=== PATIENT | female | born 1970 | race Caucasian/White ===

== ENCOUNTER 2018-06-05 13:14 | Emergency (ER) | payer MEDICAID, SELFPAY ==
[2018-06-05 13:15] VITALS: BP 144/92; PULSE 112; RESP 16; TEMP 37.1; O2SAT 97; BMI 31.1
--- NOTE | 2018-06-05 14:46 | ED.VISSUMM ---
- ER Visit Summary Date of Service: 06/05/18 Chief Complaint: [Mouth pain and redness left leg] History of Present Illness: The patient is a 48 F [presents to the emergency department complaint of blisters in her mouth and pain with swallowing. Patient states that her grandchild's been diagnosed with sswo-ehtf-hdk-mouth disease. Patient states that today she had a temperature of 102.1. Patient states that about 5 days ago she was seen at [facility] and treated for cellulitis with Keflex and Bactrim however she states that she is allergic to Bactrim so she stopped taking it. Patient states she needs a note stating that she may return to work and that she is not infectious given her cellulitis.] Physical Examination: [HEENT-PERRLA, EOMI. Cranial nerves II through XII grossly intact. TMs clear. Mucous membranes moist. No adenopathy. Patient is edentulous of upper teeth and she does have small vesicular type lesions noted on the gingiva. No lesions noted on the soft palate or oropharynx. No tongue lesions noted. Cardiovascular-regular rate and rhythm without murmur or ectopy Lungs-clear to auscultation, chest wall stable without crepitus or subcu emphysema Abdomen-normoactive bowel sounds, soft, nontender, no rebound or rigidity, no peritoneal signs. Extremities-intact ?4, normal range of motion, normal pulses, atraumatic]. Patient has several small patches of faint erythema to the left lower extremity with some excoriations noted. No lymphangitic streaking noted. No significant edema noted. Test Results: [None indicated] Emergency Department Course and Treatment: [Patient will be started on doxycycline and she is to continue with the Keflex. Patient will be given a prescription for [place] for pain] Treatment Plan: [Doxycycline and [place] for pain. Patient to follow-up with her primary care physician 3-5 days.] Disposition: [Discharged home in stable condition] Impression: [Mouth pain-suspect viral stomatitis Cellulitis left leg] This note was generated with [employer] dictation software. It may contain incorrect words, spelling, and punctuation that were not noted in review of the chart prior to signing ED Disposition - Plan for ED Patient: Chief Complaint: Lower Extremity Injury Referrals: Care Physician,No Primary [Primary Care Provider] -
--- NOTE | 2018-06-05 14:49 | ED.DEP ---
ED Disposition - Plan for ED Patient: Chief Complaint: Lower Extremity Injury Instructions: ED Stomatitis Ch, ED Infec Skin Cellulitis Prescriptions: Hydrocodone/Acetaminophen [[place] 5-325 Tablet] 1 - 2 ea PO 4X/DAY PRN PRN 3 Days #12 tab PRN Reason: Pain Doxycycline Monohydrate 100 mg PO BID #20 cap Referrals: Care Physician,No Primary [Primary Care Provider] - Warren Samson MD [NON-STAFF] - 3-5 Days
[2018-06-05 15:09] VITALS: PULSE 87; RESP 18; O2SAT 97
--- NOTE | 2018-06-05 15:10 | ED.RN ---
PT GIVEN WRITTEN AND VERBAL DISCHARGE INSTRUCTIONS AND HOME GOING PRESCRIPTIONS. EDUCATED ON USE OF ANTIBIOTICS AND PAIN MEDS AND SIDE EFFECTS. PT VERBALIZES UNDERSTANDING AND DENIES FURTHER QUESTIONS. PT AMBULATES OUT OF DEPT BY SELF.
== END 2018-06-05 15:11 | disposition home or self-care (01) ==
LOC: ED 14:55
PROVIDERS: Emergency Provider Emergency Medicine; Family Provider Family Medicine; PCP Family Medicine
DX: K13.79 Other lesions of oral mucosa (principal); L03.116 Cellulitis of left lower limb; M54.9 Dorsalgia, unspecified; G89.29 Other chronic pain; F41.9 Anxiety disorder, unspecified; Z90.49 Acquired absence of other specified parts of digestive tract; Z90.710 Acquired absence of both cervix and uterus; Z79.899 Other long term (current) drug therapy; Z72.0 Tobacco use
CPT/HCPCS: 99282

== ENCOUNTER 2018-07-24 18:57 | Emergency (ER) | payer MEDICAID, SELFPAY ==
[2018-07-24 18:57] VITALS: BP 170/101; PULSE 112; RESP 16; TEMP 36.6; O2SAT 100; BMI 28.0
[2018-07-24 19:16] VITALS: BP 118/99; PULSE 102; RESP 16; O2SAT 98
--- NOTE | 2018-07-24 19:28 | ED.RN ---
CALLED FOR EKG PER RN REQUEST, PULLED OLD EKGS FOR
--- NOTE | 2018-07-24 19:31 | EKG12_ITS ---
Test Reason : HEADACHE Blood Pressure : / mmHG Vent. Rate : 086 BPM Atrial Rate : 086 BPM P-R Int : 142 ms QRS Dur : 086 ms QT Int : 362 ms P-R-T Axes : 054 078 060 degrees QTc Int : 433 ms Normal sinus rhythm Normal ECG Confirmed by GEOVANNA HUTCHINS, TRESA ([id number]), continuity editor PALAK MARES ([id number]) on 07/26/2018 9:59:37 AM Referred By: TL Confirmed By:TRESA AUSTIN MD
--- NOTE | 2018-07-24 19:32 | ED.VISSUMM ---
- ER Visit Summary Date of Service: 07/24/18 Chief Complaint: Headache, neck pain History of Present Illness: The patient is a 48 F patient migraine headache for 2 days. Photo and phonophobia. History of bulging disks in her neck, states that increasing work lobe when she strained her neck. There is no direct injuries. No pain down the arms. No nausea or vomiting. Took a leave in 2 days Imitrex with no relief. She is at 4 PM was her last dose she developed transient chest spasms that resolved. No cardiac history. Patient seen last week in the ED for similar. No fevers. No head injuries. Physical Examination: General: Alert and oriented ?3, mild distress HEENT: Normocephalic, atraumatic. Moist mucosa membranes Neck: supple, reproducible right paracervical tenderness no midline tenderness. No meningismus Cardiovascular: Regular tachycardic rate and rhythm, no murmurs Respiratory: Normal breath sounds, symmetric, no distress Abdomen: Soft, nontender, nondistended Extremities: Nontender, no edema, pulses intact ?4 Neuro: no focal neurological deficits. Cranial nerves II through XII intact Test Results: EKG sinus rate of [address] or T wave changes. Emergency Department Course and Treatment: Patient with transient chest pain after Imitrex. This is likely side effect from that. She has no focal deficits no meningismal findings. Treated with migraine cocktail of Benadryl and Reglan states headache was improving. Patient still has neck pain with history of bulging disks in her neck. I did perform trigger point injection with bupivacaine 0.5% mid cervical with 2 cc. Patient remained stable. She still complains of symptoms, offered additional treatment however she states she would like to go home. Patient symptoms are more combination of migraine headache and tension headache with her cervical history. Treatment Plan: [] Disposition: Discharge Impression: 1. Migraine headache 2. Tension headache This note was generated with [employer] dictation software. It may contain incorrect words, spelling, and punctuation that were not noted in review of the chart prior to signing ED Disposition - Plan for ED Patient: Disposition: Home or Assisted Living Chief Complaint: Headache Diagnosis: Migraine headache, Tension headache Instructions: ED Headache Tension, ED Headache Migraine Referrals: Warren Samson MD [NON-STAFF] - 3-5 Days
[2018-07-24 20:06] VITALS: BP 120/96; PULSE 84; RESP 14; O2SAT 100
[2018-07-24] MEDS: 0.9% Normal Saline 1,000 ML 999 ML IV (20:08)
[2018-07-24] MEDS: DiphenhydrAMINE 50 MG/ML Syringe 25 MG IV (20:08)
[2018-07-24] MEDS: Metoclopramide 10 MG/2 ML Vial IV (20:09)
[2018-07-24 21:28] VITALS: BP 120/96; PULSE 86; RESP 14; O2SAT 98
[2018-07-24] MEDS: Bupivacaine Mpf 0.5% 30 ML VIAL INFILT (21:29)
[2018-07-24 21:31] VITALS: BP 120/96; PULSE 86; RESP 14; O2SAT 98
== END 2018-07-24 21:45 | disposition home or self-care (01) ==
PROVIDERS: Emergency Provider Emergency Medicine
DX: G44.209 Tension-type headache, unspecified, not intractable (principal); G43.909 Migraine, unspecified, not intractable, without status migrainosus; K21.9 Gastro-esophageal reflux disease without esophagitis; Z79.899 Other long term (current) drug therapy; Z72.0 Tobacco use
CPT/HCPCS: 93005; 96361; 96374; 96375; 99283; J7030; A4216

== ENCOUNTER 2018-12-14 18:23 | Emergency (ER) | payer MEDICAID, SELFPAY ==
[2018-12-14 18:24] VITALS: BP 128/83; PULSE 89; RESP 18; TEMP 36.1; O2SAT 100; BMI 27.4
[2018-12-14] MEDS: Ondansetron 4 MG/2 ML Vial IV (19:56)
[2018-12-14] MEDS: HYDROmorphone 1 MG/ML Syringe IV ×2 (19:57→22:02)
[2018-12-14 20:00] LABS: Basophil# 0.05 X10^3/uL; Basophil% 0.6 % (0-1); Eosinophils% 3.8 % (0-5); Hematocrit 38.9 % (37-47); Hemoglobin 12.5 g/dl (12.0-15.0); Lymphocyte % 34.4 % (19-41); Mean Corp Hgb Conc 32.1 g/gl (32-36); Mean Corpuscular Hgb 30.7 pg (27.0-32.0); Mean Corpuscular Volume 95.6 fL (81-99); Mean Platelet Vol. 9.7 fl (6.2-12.0); Monocyte# 0.84 X10^3/uL; Monocyte% 10.7 % (0-10); Neutrophil # 3.97 X10^3/uL (2.7-7.7); Neutrophil % 50.5 % (47-70); Platelet Count 225 K/mm3 (150-450); RBC Distribution Width CV 13.3 % (11.6-14.6); RBC Distribution Width SD 46.1 fl (35.1-43.9); Red Blood Count 4.07 M/mm3 (4.2-5.4); White Blood Count 7.9 K/mm3 (4.4-11.0)
[2018-12-14 20:02] LABS: POSITIVE COUNT NO; POSITIVE DIFFERENTIAL NO; POSITIVE MORPHOLOGY NO
[2018-12-14 20:18] LABS: Anion Gap 6 (5-15); BUN 15 mg/dL (7-18); BUN/Creat Ratio 16.4 RATIO (10-20); Calcium,Total 8.2 mg/dL (8.5-10.1); Chloride 109 mmol/L (98-107); Creatinine, Serum 0.91 mg/dL (0.55-1.02); EST Glomerular Filtration Rate 70 mL/min (>60); Est Glom Filt Rate - Afr Amer 84 mL/min (>60); Estimated Creatinine Clearance 68.03 ml/min; Glucose 96 mg/dL (74-106); Potassium 3.5 mmol/L (3.5-5.1); Sodium Level 142 mmol/L (136-145)
[2018-12-14 20:32] LABS: Red Blood Cells-Urine 0 SEEN /hpf (0-5)
[2018-12-14 20:34] LABS: Color, Urine Yellow (Yellow); Glucose, Dipstick Normal (Normal); Ketone-Dipstick 5 mg/dl (Negative); Leukocyte Esterase-Dipstick 25 /ul (Negative); Nitrite-Dipstick Negative (Negative); Occult Blood-Urine 10 /ul (Negative); Protein-Dipstick 30 mg/dl (Negative); Urine Clarity Clear (Clear); Urine Urobilinogen 4 mg/dl (Normal)
[2018-12-14 20:43] LABS: Urine Bilirubin Dipstick 1 mg/dL (Negative)
--- NOTE | 2018-12-14 20:44 | ED.DCSUM_ITS ---
- ER Visit Summary Date of Service: 12/14/18 Chief Complaint: [Back pain] History of Present Illness: The patient is a 48 F [presents the emergency department complaint of back pain that started 2 days ago. Patient states that he has sharp severe pain that she rates a 10 out of 10 to her left lower back th at radiates down her left leg. Patient states she cannot sit on her left buttock to the pain. Patient states that today she is lost control of her bowels x2. Patient has history of prior back surgery her last one being in 2008. Patient also with history of migraines and history of hypothyroidism. Patient also tells me that she at times feels like her left leg will not do what she wanted to do. Patient has had problems with sciatica in the past. Patient states that up until 2 days ago she been doing really well regarding her back. 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 HEENT-PERRLA, EOMI. Cranial nerves II through XII grossly intact. TMs clear. Mucous membranes moist. No adenopathy. Cardiovascular-regular rate and rhythm without murmur or ectopy Lungs-clear to auscultation, chest wall stable without crepitus or subcu emphysema Abdomen-normoactive bowel sounds, soft, nontender, no rebound or rigidity, no peritoneal signs. Rectal exam-patient did seem to have rectal tone however is unable to really squeeze my finger. Patient had normal perianal sensation. Back exam-patient has tenderness palpation over the left lumbar paraspinal musculature into the left buttock. Patient has a positive straight leg raise with the right leg at 35 degrees. Patient has normal L5 extension bilaterally. Patient has normal sensation to light touch. Extremities-intact ?4, normal range of motion, normal pulses, atraumatic] Physical Examination: [CBC with it was normal. Chemistries unremarkable.] Test Results: [] Emergency Department Course and Treatment: [Patient was medicated with Dilaudid 1 mg IV.] Treatment Plan: [Given patient's symptomatology and exam I am not convinced she has a cauda equina syndrome however I cannot explain the loss of bowel and incontinence and will admit for further workup and evaluation including MRI of her back tomorrow. I do not feel this needs to be done emergently today as she is had these symptoms for 2 days now.] Disposition: [Admit] Impression: [Intractable back pain Sciatica Stool incontinence] This note was generated with [employer] dictation software. It may contain incorrect words, spelling, and punctuation that were not noted in review of the chart prior to signing ED Disposition - Plan for ED Patient: Referrals: Warren Samson MD [Primary Care Provider] -
[2018-12-14 20:45] LABS: Bacteria 1+ /hpf (None Seen); Mucous, Urine 2+ /hpf (<or=2+); Squamous Epithelial Cells - UA 0-5 SEEN /hpf (5-10); White Blood Cells 0-5 SEEN /hpf (0-5)
--- NOTE | 2018-12-14 20:56 | HP.PCM_ITS ---
History of Present Illness The patient is a 48 year old F [] Past Medical History Medical History: Medical History (Last Reviewed 10/12/17 @ 08:41 by Charil Nails) History of hysterectomy Z98.890, Z90.710 Allergies codeine Allergy (Verified 12/14/18 18:25) Other ketorolac [From Toradol] Allergy (Verified 12/14/18 18:25) Other meloxicam [From Mobic] Allergy (Verified 12/14/18 18:25) Chest tightness Sulfa (Sulfonamide Antibiotics) Allergy (Verified 12/14/18 18:25) Itching morphine Adverse Reaction (Verified 12/14/18 18:30) Other ANXIETY Home Medications: Ambulatory Orders Medication Instructions Recorded Acetaminophen [Tylenol] 650 mg PO Q8H PRN PRN 10/18/17 Ibuprofen [Motrin] 800 mg PO Q6H PRN PRN 10/18/17 Levothyroxine [Synthroid] 75 mcg PO DAILY 10/18/17 Olanzapine [Zyprexa] 10 mg PO BID 10/18/17 Omeprazole 40 mg PO BID 12/14/18 Vortioxetine Hydrobromide 10 mg PO DAILY 12/14/18 [Trintellix] Surgical History: Surgical History (Last Reviewed 10/12/17 @ 08:41 by Charli Nails) S/P appendectomy Z90.49 S/P cholecystectomy Z90.49 colon left wrist 2015 s/p back Smoking Status: Current every day smoker - Physical Exam Vital Signs Temp Pulse Resp BP Pulse Ox 97 F L 89 18 128/83 H 100 12/14/18 18:24 12/14/18 18:24 12/14/18 18:24 12/14/18 18:24 12/14/18 18:24 Weight: 74.843 kg Body Mass Index (BMI) 27.4 Laboratory Tests Past 24 Hrs 12/14/18 12/14/18 12/14/18 19:50 19:50 20:30 WBC 7.9 RBC 4.07 L Hgb 12.5 Hct 38.9 MCV 95.6 MCH 30.7 MCHC 32.1 RDW 13.3 RDW Differential 46.1 H Plt Count 225 MPV 9.7 Immature Gran % (Auto) 0.000 Neut % (Auto) 50.5 Lymph % (Auto) 34.4 [place] % (Auto) 10.7 H Eos % (Auto) 3.8 Baso % (Auto) 0.6 Absolute Neuts (auto) 4.0 Absolute Lymphs (auto) 2.70 Total Counted Not Reportable Sodium 142 Potassium 3.5 Chloride 109 H Carbon Dioxide 27.0 Anion Gap 6 BUN 15 Creatinine 0.91 Estim Creat Clear Calc 68.03 Est GFR (MDRD) Af Amer 84 Est GFR (MDRD) Non-Af 70 BUN/Creatinine Ratio 16.4 Glucose 96 Calcium 8.2 L Urine Color Yellow Urine Clarity Clear Urine pH 6.0 Ur Specific [place] 1.020 Urine Protein 30 H Urine Glucose (UA) Normal Urine Ketones 5 H Urine Occult Blood 10 H Urine Nitrite Negative Urine Bilirubin 1 H Urine Urobilinogen 4 H Ur Leukocyte Esterase 25 H Urine RBC 0 SEEN Urine WBC 0-5 SEEN Ur Squamous Epith Cells 0-5 SEEN Urine Bacteria 1+ Urine Mucus 2+ Assessment/Plan All Active Problems (Last Reviewed 10/12/17 @ 08:41 by Charli Nails) Carpal tunnel syndrome on left (Acute) Nonunion of fracture (Acute) Pelvic pain in female (Acute)
--- NOTE | 2018-12-14 21:40 | ED.VISSUMM ---
- ER Visit Summary Date of Service: 12/14/18 Chief Complaint: [Addendum to initial dictation] History of Present Illness: The patient is a 48 F [patient initially was to be admitted here for intractable back pain however after discussing case with hospitalist I was asked to transfer patient to a facility that would have neurosurgery available should the patient require it. Patient would like to go to [facility] and arrangements were made for patient to be transferred to [facility].] Physical Examination: [] Test Results: [] Emergency Department Course and Treatment: [] Treatment Plan: [Transfer to [facility]] Disposition: [Transfer ] Impression: [Sciatica Intractable pain Incontinence of stool] This note was generated with [employer] dictation software. It may contain incorrect words, spelling, and punctuation that were not noted in review of the chart prior to signing ED Disposition - Plan for ED Patient: Referrals: Warren Samson MD [Primary Care Provider] -
[2018-12-14] MEDS: Orphenadrine 60 MG/2 ML Ampul IM (22:01)
[2018-12-14 22:07] VITALS: BP 117/83; PULSE 77; RESP 16; O2SAT 100
== END 2018-12-14 22:45 | disposition short-term general hospital (02) ==
LOC: ED 19:40 → MS3 21:25
PROVIDERS: Emergency Provider Emergency Medicine; Family Provider Family Medicine; PCP Family Medicine
DX: M54.42 Lumbago with sciatica, left side (principal); R15.9 Full incontinence of feces; J44.9 Chronic obstructive pulmonary disease, unspecified; E03.9 Hypothyroidism, unspecified; G43.909 Migraine, unspecified, not intractable, without status migrainosus; Z72.0 Tobacco use; Z79.899 Other long term (current) drug therapy
CPT/HCPCS: 80048; 81001; 85025; 96372; 96374; 96375; 96376; 99285; A4216; J2405

== ENCOUNTER 2019-01-22 18:40 | Emergency (ER) | payer MEDICAID, SELFPAY ==
[2019-01-22 18:41] VITALS: BP 142/89; PULSE 105; RESP 18; TEMP 36.4; O2SAT 98; BMI 27.4
--- NOTE | 2019-01-22 19:09 | RAD_ITS ---
STUDY: X-RAY - RIGHT SHOULDER REASON FOR EXAM: Female, 48 years old. Pain TECHNIQUE: 4 view(s) of the shoulder., COMPARISON: August 30, 2015 right shoulder,, CT chest December 15, 2016 FINDINGS: There is mild degenerative arthrosis of the glenohumeral articulation. There is degenerative arthrosis of the acromioclavicular joint without inferior osseous spur formation. Normal acromion. Normal humeral head and visualized proximal humerus. There is calcification inferior to the glenohumeral joint which may represent a osteochondral body slightly more apparent than the prior study August 30, 2015 There is periarticular soft tissue calcification consistent with a calcific tendinitis. Normal visualized pulmonary apex. RAD/Shoulder min 2 Views IMPRESSION: Degenerative change right shoulder calcific tendinosis. No visualized fracture. Electronically Signed: Michelle Celeste MD at 19:50 EDT Tel , Service support ,
[2019-01-22] MEDS: HYDROcodone Bitartrate/Apap 5/325 Tablet PO (19:21)
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
[2019-01-22] MEDS: Orphenadrine 60 MG/2 ML Ampul IM (20:09)
--- NOTE | 2019-01-22 20:48 | ED.DEP ---
ED Disposition - Plan for ED Patient: Instructions: ED Sprain Shoulder Prescriptions: Oxycodone HCl/Acetaminophen [Percocet 5/325] 1 tablet PO Q6H PRN PRN 3 Days #12 tablet PRN Reason: Pain Referrals: Warren Samson MD [Primary Care Provider] -
[2019-01-22] MEDS: morphine 8 MG/ML Syringe IM (21:24)
[2019-01-22] MEDS: Ondansetron 4 MG/2 ML Vial IM (21:24)
[2019-01-22 21:29] VITALS: BP 140/87; PULSE 80; RESP 18; O2SAT 97
== END 2019-01-22 21:29 | disposition home or self-care (01) ==
LOC: ED 19:19
PROVIDERS: Emergency Provider Emergency Medicine; Family Provider Family Medicine; PCP Family Medicine
DX: M65.221 Calcific tendinitis, right upper arm (principal); M25.511 Pain in right shoulder; Z72.0 Tobacco use
CPT/HCPCS: 73030; 96372; 99284; J2405

== ENCOUNTER 2019-02-18 11:50 | Emergency (ER) | payer MEDICAID, SELFPAY ==
[2019-02-18 11:51] VITALS: BP 130/88; PULSE 80; RESP 16; TEMP 36.6; O2SAT 98; BMI 26.4
--- NOTE | 2019-02-18 12:07 | ED.VIS.UPPEX ---
History of Present Illness Chief Complaint: Upper Extremity Injury Informant: Patient Occurred: Month(s) - Greater than 1 month Onset: Month(s) - Rater than 1 month Context: Sudden Onset Timing: Continuous Quality of Pain: Dull, Aching, Throbbing Current Severity: Mild Maximum Severity: Severe Worsened by: Movement especially abduction Relieved by: For the past week nothing Associated Symptoms: Loss of Funtion. Negative for: Parasthesia, Weakness Narrative: Patient is a middle-aged uevxn-yjus-srambhiw woman who was seen last month. X-rays of the shoulder revealed calcification of the supraspinatus tendon. She presents because of worsening pain. She states the pain radiates to her posterior neck. She denies pain radiating down to her fingers. She denies visual, ocular auditory symptoms. She denies cardiac respiratory symptoms. She denies decreased grasp. Prior similar symptoms: Yes Recent Illness/Hospitalization: Yes - Past Medical History (1) Calcific tendinitis of right shoulder Status: Chronic Past Medical History - Allergies and Home Meds Allergies/Adverse Reactions: Allergies codeine Allergy (Verified 02/18/19 11:53) Other meloxicam [From Mobic] Allergy (Verified 02/18/19 11:53) Chest tightness Sulfa (Sulfonamide Antibiotics) Allergy (Verified 02/18/19 11:53) Itching tramadol Allergy (Verified 02/18/19 11:53) SEIZURES morphine Adverse Reaction (Verified 02/18/19 11:53) Other ANXIETY Primary Care Physician: Warren Samson MD [Primary Care Provider] - Prior records reviewed: Yes - ER visits January 22 Lives: Alone Smoking Status: Current every day smoker Alcohol: Rare Drugs: None Review of Systems General: Denies: Chills, Fever, Malaise, Sweats Eyes: Denies: Visual changes - bilaterally, Blurred Vision - bilaterally ENT: Denies: Bilateral ear pain, Rhinorrhea, Sore throat Cardiovascular: Denies: Chest pain, Palpitations Respiratory: Denies: Dyspnea, Cough, Dyspnea on exertion, Orthopnea, Paroxysmal nocturnal dyspnea Gastrointestinal: Denies: Nausea, Vomiting Musculoskeletal: Reports: Neck pain, Extremity Pain. Denies: Myalgias, Arthralgias, Back pain, Swelling Skin: Denies: Rash, Wounds Neurological: Denies: Weakness, Parasthesia, Numbness Hematologic: Denies: Easy bruising, Easy bleeding Allergy: Denies: Uticaria, Swelling of the mouth Physical Exam Vital Signs/Narrative: Vital Signs Temp Pulse Resp BP Pulse Ox 02/18/19 11:51 97.8 F 80 16 130/88 H 98 Inital Vital Signs reviewed: Yes Right Shoulder: Limited ROM - Patient has pain with abduction past 60 degrees. Negative drop test.. Negative for: Abrasion, Contusion, Deformity, Edema, Hematoma Right Humerus: Negative for: Abrasion, Contusion, Deformity, Edema, Hematoma, Limited ROM, - Right Elbow: Negative for: Abrasion, Contusion, Deformity, Edema, Hematoma, Limited ROM, - Right Forearm: Negative for: Abrasion, Contusion, Deformity, Edema, Hematoma, Limited ROM, - Right Wrist: Negative for: Abrasion, Contusion, Deformity, Edema, Hematoma, Limited ROM, - Left Hand: Negative for: Abrasion, Contusion, Deformity, Edema, Hematoma, Limited ROM, - Right Finger: Negative for: Abrasion, Contusion, Deformity, Edema, Hematoma, Limited ROM, - General: Well nourished, Well developed Head: Normocephalic, Atraumatic Eyes: Perrl, EOMI. Negative for: Pale conjunctiva, Scleral icterus, - ENT: No Trauma, Moist Mucous Membranes Neck: Nontender, Full ROM. Negative for: Spinal Tenderness, Paraspinal Tenderness - There is tenderness over the right trapezius region. Cardiovascular: Regular rate, Regular rhythm, No murmurs, Normal S1, Normal S2 Respiratory: No distress, CTA bilaterally, Chest nontender Skin: Normal color, No rash, No Trauma. Negative for: Cyanosis, Jaundice Neurological: Alert, Oriented x3, Cranial nerves II-XII grossly intact, Normal Strength, Normal Sensation, Normal DTR - Bicep, brachialis and triceps reflex are 1+ and symmetric., - - Axillary, median, radial and ulnar function intact. Psychological: Tearful Diagnostic/Tx/Re-eval - Medical Decision Making With persistent pain and x-ray that demonstrates calcific tendinitis will inject with 1 cc of Kenalog, 40 international units and 9 cc of 1% lidocaine. Procedures Procedure(s): Intra-articular injection right shoulder 1 cc of Kenalog and 9 cc of lidocaine. ED Disposition - Plan for ED Patient: Disposition: Home or Assisted Living Diagnosis: Calcific tendinitis of right shoulder Instructions: ED Tendinitis Calcific Prescriptions: Hydrocodone Bitart/Apap 5-325 [[place] 5MG-325MG] 1 tablet PO Q6H PRN PRN 3 Days #10 tablet PRN Reason: Pain Referrals: Warren Samson MD [Primary Care Provider] - 3-5 Days if not improving
--- NOTE | 2019-02-18 12:12 | ED.DCSUM_ITS ---
History of Present Illness Chief Complaint: Upper Extremity Injury Informant: Patient Occurred: Month(s) - Greater than 1 month Onset: Month(s) - Rater than 1 month Context: Sudden Onset Timing: Continuous Quality of Pain: Dull, Aching, Throbbing Current Severity: Mild Maximum Severity: Severe Worsened by: Movement especially abduction Relieved by: For the past week nothing Associated Symptoms: Loss of Funtion. Negative for: Parasthesia, Weakness Narrative: Patient is a middle-aged [id number] woman who was seen last month. X- rays of the shoulder revealed calcification of the supraspinatus tendon. She presents because of worsening pain. She states the pain radiates to her posterior neck. She denies pain radiating down to her fingers. She denies visual, ocular auditory symptoms. She denies cardiac respiratory symptoms. She denies decreased grasp. Prior similar symptoms: Yes Recent Illness/Hospitalization: Yes - Past Medical History (1) Calcific tendinitis of right shoulder Status: Chronic Past Medical History - Allergies and Home Meds Allergies/Adverse Reactions: Allergies codeine Allergy (Verified 02/18/19 11:53) Other meloxicam [From Mobic] Allergy (Verified 02/18/19 11:53) Chest tightness Sulfa (Sulfonamide Antibiotics) Allergy (Verified 02/18/19 11:53) Itching tramadol Allergy (Verified 02/18/19 11:53) SEIZURES morphine Adverse Reaction (Verified 02/18/19 11:53) Other ANXIETY Primary Care Physician: Warren Samson MD [Primary Care Provider] - Prior records reviewed: Yes - ER visits January 22 Lives: Alone Smoking Status: Current every day smoker Alcohol: Rare Drugs: None Review of Systems General: Denies: Chills, Fever, Malaise, Sweats Eyes: Denies: Visual changes - bilaterally, Blurred Vision - bilaterally ENT: Denies: Bilateral ear pain, Rhinorrhea, Sore throat Cardiovascular: Denies: Chest pain, Palpitations Respiratory: Denies: Dyspnea, Cough, Dyspnea on exertion, Orthopnea, Paroxysmal nocturnal dyspnea Gastrointestinal: Denies: Nausea, Vomiting Musculoskeletal: Reports: Neck pain, Extremity Pain. Denies: Myalgias, Arthralgias, Back pain, Swelling Skin: Denies: Rash, Wounds Neurological: Denies: Weakness, Parasthesia, Numbness Hematologic: Denies: Easy bruising, Easy bleeding Allergy: Denies: Uticaria, Swelling of the mouth Physical Exam Vital Signs/Narrative: Vital Signs Temp Pulse Resp BP Pulse Ox 02/18/19 11:51 97.8 F 80 16 130/88 H 98 Inital Vital Signs reviewed: Yes Right Shoulder: Limited ROM - Patient has pain with abduction past 60 degrees. Negative drop test.. Negative for: Abrasion, Contusion, Deformity, Edema, Hematoma Right Humerus: Negative for: Abrasion, Contusion, Deformity, Edema, Hematoma, Limited ROM, - Right Elbow: Negative for: Abrasion, Contusion, Deformity, Edema, Hematoma, Limited ROM, - Right Forearm: Negative for: Abrasion, Contusion, Deformity, Edema, Hematoma, Limited ROM, - Right Wrist: Negative for: Abrasion, Contusion, Deformity, Edema, Hematoma, Limited ROM, - Left Hand: Negative for: Abrasion, Contusion, Deformity, Edema, Hematoma, Limited ROM, - Right Finger: Negative for: Abrasion, Contusion, Deformity, Edema, Hematoma, Limited ROM, - General: Well nourished, Well developed Head: Normocephalic, Atraumatic Eyes: Perrl, EOMI. Negative for: Pale conjunctiva, Scleral icterus, - ENT: No Trauma, Moist Mucous Membranes Neck: Nontender, Full ROM. Negative for: Spinal Tenderness, Paraspinal Tenderness - There is tenderness over the right trapezius region. Cardiovascular: Regular rate, Regular rhythm, No murmurs, Normal S1, Normal S2 Respiratory: No distress, CTA bilaterally, Chest nontender Skin: Normal color, No rash, No Trauma. Negative for: Cyanosis, Jaundice Neurological: Alert, Oriented x3, Cranial nerves II-XII grossly intact, Normal Strength, Normal Sensation, Normal DTR - Bicep, brachialis and triceps reflex are 1+ and symmetric., - - Axillary, median, radial and ulnar function intact. Psychological: Tearful Diagnostic/Tx/Re-eval - Medical Decision Making With persistent pain and x-ray that demonstrates calcific tendinitis will inject with 1 cc of Kenalog, 40 international units and 9 cc of 1% lidocaine. Procedures Procedure(s): Intra-articular injection right shoulder 1 cc of Kenalog and 9 cc of lidocaine. ED Disposition - Plan for ED Patient: Disposition: Home or Assisted Living Diagnosis: Calcific tendinitis of right shoulder Instructions: ED Tendinitis Calcific Prescriptions: Hydrocodone Bitart/Apap 5-325 [[place] 5MG-325MG] 1 tablet PO Q6H PRN PRN 3 Days #10 tablet PRN Reason: Pain Referrals: Warren Samson MD [Primary Care Provider] - 3-5 Days if not improving
[2019-02-18] MEDS: Triamcinolone Acetonide 40 MG/ML Vial IU (12:23)
--- NOTE | 2019-02-18 13:39 | ED.VISSUMM ---
- ER Visit Summary Date of Service: 02/18/19 Chief Complaint: [] History of Present Illness: The patient is a 48 F [] Physical Examination: [] Test Results: [] Emergency Department Course and Treatment: [] Treatment Plan: [] Disposition: [] Impression: [] This note was generated with [employer] dictation software. It may contain incorrect words, spelling, and punctuation that were not noted in review of the chart prior to signing ED Disposition - Plan for ED Patient: Disposition: Home or Assisted Living Diagnosis: Calcific tendinitis of right shoulder Instructions: ED Tendinitis Calcific Prescriptions: Hydrocodone Bitart/Apap 5-325 [[place] 5MG-325MG] 1 tablet PO Q6H PRN PRN 3 Days #10 tablet PRN Reason: Pain Hydrocodone Bitart/Apap 5-325 [[place] 5MG-325MG] 1 tab PO Q6H PRN PRN 3 Days #10 tab PRN Reason: Pain Referrals: Warren Samson MD [Primary Care Provider] - 3-5 Days if not improving
== END 2019-02-18 12:38 | disposition home or self-care (01) ==
PROVIDERS: Emergency Provider Emergency Medicine; Family Provider Family Medicine; PCP Family Medicine
DX: M75.31 Calcific tendinitis of right shoulder (principal); F17.200 Nicotine dependence, unspecified, uncomplicated
CPT/HCPCS: 20610; 96372; 99282

== ENCOUNTER 2019-02-19 00:34 | Emergency (ER) | payer MEDICAID, SELFPAY ==
[2019-02-18 11:51] VITALS: BMI 26.4
[2019-02-19 00:35] VITALS: BP 143/89; PULSE 84; RESP 16; TEMP 36.4; O2SAT 97; BMI 27.6
--- NOTE | 2019-02-19 00:43 | ED.VIS.GEN ---
History of Present Illness Chief Complaint: Upper Extremity Injury Informant: Patient Narrative: Presents with persistent pain in her right shoulder. She was diagnosed with calcific tendinitis recently. She stated that she never followed up with orthopedics. This is her third visit for this. She was seen earlier today and given injection pain is persistent. She was given [place] for home but it does not seem to be helping. She feels like she is having muscle spasm in her neck as well because she is holding her shoulder differently. She has a sling is been using intermittently. No new injury. 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 - Past Medical History (1) Carpal tunnel syndrome on left Status: Acute (2) Nonunion of fracture Status: Acute (3) Pelvic pain in female Status: Acute (4) Calcific tendinitis of right shoulder Status: Chronic Past Medical History - Allergies and Home Meds Allergies/Adverse Reactions: Allergies codeine Allergy (Verified 02/19/19 00:37) Other meloxicam [From Mobic] Allergy (Verified 02/19/19 00:37) Chest tightness Sulfa (Sulfonamide Antibiotics) Allergy (Verified 02/19/19 00:37) Itching tramadol Allergy (Verified 02/19/19 00:37) SEIZURES morphine Adverse Reaction (Verified 02/19/19 00:37) Other ANXIETY Primary Care Physician: Warren Samson MD [Primary Care Provider] - Prior records reviewed: Yes Surgical History: noncontributory Smoking Status: Current every day smoker Alcohol: None Drugs: None Review of Systems General: Denies: Chills, Fever, Sweats Eyes: Denies: Visual changes - bilaterally, Diplopia ENT: Denies: Rhinorrhea, Sore throat Cardiovascular: Denies: Chest pain, Palpitations Respiratory: Denies: Dyspnea, Cough, Dyspnea on exertion Gastrointestinal: Denies: Abdominal pain, Nausea, Vomiting, Diarrhea, Melena, Hematochezia Genitourinary: Denies: Dysuria, Hematuria, Frequency Musculoskeletal: Reports: Arthralgias, Extremity Pain. Denies: Back pain Skin: Denies: Rash, Wounds Neurological: Denies: Headache, Weakness, Numbness Physical Exam Vital Signs/Narrative: Vital Signs Temp Pulse Resp BP Pulse Ox 02/19/19 00:35 97.6 F L 84 16 143/89 H 97 General: Well nourished, Well developed, No Acute Distress Head: Normocephalic, Atraumatic Eyes: Perrl, EOMI ENT: Moist mucous membranes, No rhinorrhea Neck: Supple, Nontender Cardiovascular: Regular rate, Regular rhythm, No murmurs Respiratory: No distress, CTA bilaterally, Chest nontender Abdomen: Soft, Nontender, Nondistended, Normal bowel sounds Back: Nontender, Normal Inspection Extremities: No edema, Tenderness - Tenderness in the right shoulder and right trapezius. Mild decreased range of motion secondary to pain. No swelling or deformity or redness or warmth.. Negative for: Nontender Skin: Normal color, No rash Neurological: Alert, Oriented x3, Cranial nerves II-XII grossly intact, Normal Strength, Normal Sensation Psychological: Normal affect, Normal Mood Diagnostic/Tx/Re-eval - Medical Decision Making Patient requesting a muscle relaxant. Given injection of morphine and Keflex. She will ice and use her sling intermittently. She has [place] at home. I will add a muscle relaxant to her regimen and she will follow-up as an outpatient. ED Disposition - Plan for ED Patient: Disposition: [facility] [facility] Diagnosis: Calcific tendinitis Instructions: ED Tendinitis Rotator Cuff Prescriptions: Cyclobenzaprine [Flexeril] 10 mg PO TID PRN #20 tab PRN Reason: Muscle Spasm Referrals: Warren Samson MD [Primary Care Provider] -
--- NOTE | 2019-02-19 00:46 | ED.DCSUM_ITS ---
History of Present Illness Chief Complaint: Upper Extremity Injury Informant: Patient Narrative: Presents with persistent pain in her right shoulder. She was diagnosed with calcific tendinitis recently. She stated that she never followed up with orthopedics. This is her third visit for this. She was seen earlier today and given injection pain is persistent. She was given [place] for home but it does not seem to be helping. She feels like she is having muscle spasm in her neck as well because she is holding her shoulder differently. She has a sling is been using intermittently. No new injury. 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 - Past Medical History (1) Carpal tunnel syndrome on left Status: Acute (2) Nonunion of fracture Status: Acute (3) Pelvic pain in female Status: Acute (4) Calcific tendinitis of right shoulder Status: Chronic Past Medical History - Allergies and Home Meds Allergies/Adverse Reactions: Allergies codeine Allergy (Verified 02/19/19 00:37) Other meloxicam [From Mobic] Allergy (Verified 02/19/19 00:37) Chest tightness Sulfa (Sulfonamide Antibiotics) Allergy (Verified 02/19/19 00:37) Itching tramadol Allergy (Verified 02/19/19 00:37) SEIZURES morphine Adverse Reaction (Verified 02/19/19 00:37) Other ANXIETY Primary Care Physician: Warren Samson MD [Primary Care Provider] - Prior records reviewed: Yes Surgical History: noncontributory Smoking Status: Current every day smoker Alcohol: None Drugs: None Review of Systems General: Denies: Chills, Fever, Sweats Eyes: Denies: Visual changes - bilaterally, Diplopia ENT: Denies: Rhinorrhea, Sore throat Cardiovascular: Denies: Chest pain, Palpitations Respiratory: Denies: Dyspnea, Cough, Dyspnea on exertion Gastrointestinal: Denies: Abdominal pain, Nausea, Vomiting, Diarrhea, Melena, Hematochezia Genitourinary: Denies: Dysuria, Hematuria, Frequency Musculoskeletal: Reports: Arthralgias, Extremity Pain. Denies: Back pain Skin: Denies: Rash, Wounds Neurological: Denies: Headache, Weakness, Numbness Physical Exam Vital Signs/Narrative: Vital Signs Temp Pulse Resp BP Pulse Ox 02/19/19 00:35 97.6 F L 84 16 143/89 H 97 General: Well nourished, Well developed, No Acute Distress Head: Normocephalic, Atraumatic Eyes: Perrl, EOMI ENT: Moist mucous membranes, No rhinorrhea Neck: Supple, Nontender Cardiovascular: Regular rate, Regular rhythm, No murmurs Respiratory: No distress, CTA bilaterally, Chest nontender Abdomen: Soft, Nontender, Nondistended, Normal bowel sounds Back: Nontender, Normal Inspection Extremities: No edema, Tenderness - Tenderness in the right shoulder and right trapezius. Mild decreased range of motion secondary to pain. No swelling or deformity or redness or warmth.. Negative for: Nontender Skin: Normal color, No rash Neurological: Alert, Oriented x3, Cranial nerves II-XII grossly intact, Normal Strength, Normal Sensation Psychological: Normal affect, Normal Mood Diagnostic/Tx/Re-eval - Medical Decision Making Patient requesting a muscle relaxant. Given injection of morphine and Keflex. She will ice and use her sling intermittently. She has [place] at home. I will add a muscle relaxant to her regimen and she will follow-up as an outpatient. ED Disposition - Plan for ED Patient: Disposition: [place] [facility] Diagnosis: Calcific tendinitis Instructions: ED Tendinitis Rotator Cuff Prescriptions: Cyclobenzaprine [Flexeril] 10 mg PO TID PRN #20 tab PRN Reason: Muscle Spasm Referrals: Warren Samson MD [Primary Care Provider] -
[2019-02-19] MEDS: HYDROmorphone 1 MG/ML Syringe IM (00:57)
[2019-02-19] MEDS: Ondansetron ODT 4 MG Tablet 8 MG PO (00:57)
[2019-02-19] MEDS: Orphenadrine 60 MG/2 ML Ampul IM (00:58)
[2019-02-19 01:23] VITALS: RESP 16
== END 2019-02-19 01:24 | disposition home or self-care (01) ==
LOC: ED 00:53
PROVIDERS: Emergency Provider Emergency Medicine; Family Provider Family Medicine; PCP Family Medicine
DX: M75.31 Calcific tendinitis of right shoulder (principal); G56.02 Carpal tunnel syndrome, left upper limb; F17.200 Nicotine dependence, unspecified, uncomplicated
CPT/HCPCS: 96372; 99282

== ENCOUNTER 2019-03-10 17:08 | Observation (INO) | payer MEDICAID, SELFPAY ==
[2019-03-10 17:10] VITALS: BP 138/97; PULSE 122; RESP 16; TEMP 36.9; O2SAT 97; BMI 27.4
--- NOTE | 2019-03-10 17:33 | CT_ITS ---
HISTORY: N/V/D SINCE 11AM YESTERDAY WITH SEVERE ABD PAIN, HX C-DIFF WITH COLON RESECTION, APPY, GB, AUDREY, ECTOPIC, LUMBAR FUSION TECHNIQUE: Helically acquired images were obtained of the abdomen and pelvis following the intravenous administration of 100ML ml of Isovue 300 Iodinated contrast. 2D reformats. Oral contrast was administered. A radiation dose optimization technique was used for this scan. COMPARISON: None FINDINGS: # of images incl. paperwork: 369 LUNG BASES: Clear. CT abdomen: Small hiatal hernia with gas and liquid refluxing from the stomach into the distal esophagus without significant esophageal wall thickening. The stomach is mostly decompressed, but does contain gas liquid and food. Posterior spinal fixation at L5-S1. Anterior subluxation of L5 on S1. Laminectomy at L5. Fusion of the facets posteriorly at L5-S1. The gallbladder has been resected. There is intra-and extrahepatic biliary ductal dilatation. At the hepatic hilum, at the confluence of the left and right hepatic ducts, the common hepatic duct is dilated to 2.1 mm. The common bile duct, at the top of the pancreatic head, is not as dilated, but is dilated to 1.3 cm. The common duct, at the confluence of the common bile duct, and the pancreatic duct, is dilated to 7 mm. The spleen, pancreas, and adrenal glands, are normal. The kidneys are normal. The aorta is diseased with calcific atherosclerotic plaque, without aneurysm or dissection. CT pelvis: Pelvic ascites is present. The uterus has been resected. The appendix has been resected. The bladder is mostly decompressed, and already filling with excreted intravenous contrast. Most of the colon is been resected. There is an anastomosis within the pelvis likely between residual sigmoid colon and small bowel. Many loops of small bowel within the pelvis demonstrate bowel wall thickening and distention. The oral contrast ingested is present within distal small bowel but not the last loops of small bowel. There is inflammatory edema within the mesentery with adenopathy. CT/Abdomen/Pelvis WITH Contrast IMPRESSION: Almost all the colon has been resected. Inflammation involving the distal remaining small bowel. Individualized dose optimization techniques were used for this CT. at 2111 Reported and signed by: Sidney López MD Electronically Signed: Sidney López MD at 21:10 EDT Tel , Service support ,
--- NOTE | 2019-03-10 17:39 | ED.VISSUMM ---
- ER Visit Summary Date of Service: 03/10/19 Chief Complaint: Abdominal pain History of Present Illness: The patient is a 48 F presenting with abdominal pain. She states this started yesterday. She complains of nausea, vomiting, diarrhea. States she is having frequent loose stools. She states this feels similar to when she had C. difficile in the past. She states she ate a ham sandwich before her symptoms started. She denies blood in her stool or emesis. She tried Bentyl and Toradol at home. She denies recent antibiotics. She states her aunt recently had C. difficile. Denies other complaints. Physical Examination: Vitals are stable. Patient is afebrile. Alert no acute distress. HEENT exam is unremarkable. Neck is supple. Lungs are clear and equal bilaterally. Heart is regular and tachycardic Abdomen is soft diffuse tenderness with no rebound or guarding Extremities are unremarkable. Skin is warm and dry. No focal neurologic deficit. Remainder of exam is unremarkable. Emergency Department Course and Treatment: Patient given IV fluids, Dilaudid, Phenergan. CBC, chemistries unremarkable other than CO2 18, BUN 21, creatinine 1.2. Liver lipase are normal. Urinalysis unremarkable. CT abdomen pelvis shows almost all of the colon has been resected. Inflammation involving the distal remaining small bowel. On reevaluation patient continues to have pain. She was given Bentyl. She continues to have diarrhea. She does not feel that she can go home. Discussed with the hospitalist for observation. Disposition: Observation Impression: Abdominal pain, diarrhea This note was generated with [employer] dictation software. It may contain incorrect words, spelling, and punctuation that were not noted in review of the chart prior to signing ED Disposition - Plan for ED Patient: Disposition: Acute Care Hospital [facility]
[2019-03-10] MEDS: HYDROmorphone 1 MG/ML Syringe IV ×2 (17:48→22:23)
[2019-03-10] MEDS: 0.9% Normal Saline 1,000 ML 1000 ML IV (17:48)
[2019-03-10] MEDS: proMETHazine 25 MG/ML Syringe 6.25 MG IV (17:48)
[2019-03-10 17:49] LABS: Absolute Neutrophil Count 5.4 X10^3/uL (2.0-7.7); Basophil# 0.06 X10^3/uL; Basophil% 0.6 % (0-1); Hematocrit 47.9 % (37-47); Hemoglobin 15.9 g/dl (12.0-15.0); Lymphocyte % 32.5 % (19-41); Mean Corp Hgb Conc 33.2 g/gl (32-36); Mean Corpuscular Hgb 30.8 pg (27.0-32.0); Mean Corpuscular Volume 92.8 fL (81-99); Mean Platelet Vol. 9.8 fl (6.2-12.0); Monocyte# 1.07 X10^3/uL; Monocyte% 10.5 % (0-10); Neutrophil # 5.42 X10^3/uL (2.7-7.7); Neutrophil % 53.3 % (47-70); Platelet Count 301 K/mm3 (150-450); RBC Distribution Width CV 14.6 % (11.6-14.6); RBC Distribution Width SD 49.4 fl (35.1-43.9); Red Blood Count 5.16 M/mm3 (4.2-5.4); White Blood Count 10.2 K/mm3 (4.4-11.0)
[2019-03-10 17:51] LABS: POSITIVE COUNT NO; POSITIVE DIFFERENTIAL NO; POSITIVE MORPHOLOGY NO
[2019-03-10 18:03] LABS: AST(SGOT) 19 U/L (15-37); Alanine Aminotransfer ALT/SGPT 23 U/L (13-56); Albumin, Serum 4.1 g/dL (3.2-5.0); Alkaline Phosphatase 94 U/L (45-117); Anion Gap 11 (5-15); BUN 21 mg/dL (7-18); BUN/Creat Ratio 17.5 RATIO (10-20); Chloride 109 mmol/L (98-107); EST Glomerular Filtration Rate 51 mL/min (>60); Est Glom Filt Rate - Afr Amer 62 mL/min (>60); Estimated Creatinine Clearance 51.59 ml/min; Globulin 4.1 g/dL (2.2-4.2); Glucose 100 mg/dL (74-106); Lipase 120 U/L (73-393); Potassium 4.3 mmol/L (3.5-5.1); Protein, Total 8.2 g/dL (6.4-8.2); Sodium Level 138 mmol/L (136-145)
[2019-03-10 18:20] LABS: Bacteria 0 SEEN /hpf (None Seen); Mucous, Urine 0 SEEN /hpf (<or=2+); White Blood Cells 0 SEEN /hpf (0-5)
[2019-03-10 18:22] LABS: Color, Urine Yellow (Yellow); Glucose, Dipstick Normal (Normal); Ketone-Dipstick 5 mg/dl (Negative); Leukocyte Esterase-Dipstick 25 /ul (Negative); Nitrite-Dipstick Negative (Negative); Occult Blood-Urine 25 /ul (Negative); Protein-Dipstick 30 mg/dl (Negative); Urine Clarity Cloudy (Clear); Urine Urobilinogen 1 mg/dl (Normal)
[2019-03-10 18:31] LABS: Urine Bilirubin Dipstick 1 mg/dL (Negative)
[2019-03-10 18:47] LABS: Fine Granular Cast- Urine 0-5 SEEN /lpf (0-5); Squamous Epithelial Cells - UA 0-5 SEEN /hpf (5-10)
[2019-03-10 18:48] LABS: Hyaline Cast 10-25 SEEN /lpf (0-5)
[2019-03-10 18:52] LABS: Red Blood Cells-Urine 0-5 SEEN /hpf (0-5)
[2019-03-10] MEDS: HYDROmorphone 0.5 MG/0.5 ML SYRINGE IV (19:36)
[2019-03-10 19:39] VITALS: BP 120/82; PULSE 81; RESP 16; O2SAT 99
--- NOTE | 2019-03-10 20:30 | ED.RN ---
pt requesting more pain medication. draware. no new orders at this time.
--- NOTE | 2019-03-10 21:00 | ED.RN ---
pt requesting pain medication . no new orders at this time.
--- NOTE | 2019-03-10 21:24 | ED.RN ---
Addendum entered by Maryanne Ortiz 03/10/19 21:26: informed pt. waiting on ct results will come talk to pt about pain. offered emotional support. Original Note: pt requesting pain medication. dr regalado aware. no new orders at this time.
[2019-03-10] MEDS: Dicyclomine 10 MG Capsule 20 MG PO (22:17)
--- NOTE | 2019-03-10 22:24 | PCM.HP.STD ---
Problem List (1) Acute gastroenteritis Status: Acute History of Present Illness Date of Admission: 03/10/19 Chief Complaint: abdominal pain, nausea and vomiting The patient is a 48 year old F with a significant history of chronic back and right shoulder pain; C-diff s/p colectomy; depression and anxiety; and hypothyroidism who presented with a two- day history of epigastric pain; nausea and vomiting that started after eating a ham and cheese sandwich. Although multiple people ate the same ham and cheese sandwich nobody developed the above symptoms except the patient. She reports a constant epigastric aching pain of severity 6 out of 10; with episodic squeezing pain of severity 10 out of 10. Her pain radiates to her back. Her pain increases with eating; drinking or lie on her back. Her pain improves when she lie on her side or use a heating pad. Her aunt was diagnosed with C. difficile last week. Patient reported that her pain is reminiscent of her previous diverticulitis and C. difficile. C. difficile test was negative at the ED. Past Medical History Past Medical History (Chronic Problems): Chronic Problems (Last Reviewed 03/10/19 @ 23:02 by Dewayne Dodge MD) Calcific tendinitis of right shoulder (Chronic) Medical History: Medical History (Last Reviewed 03/10/19 @ 23:02 by Dewayne Dodge MD) History of hysterectomy Z98.890, Z90.710 Allergies codeine Allergy (Verified 03/10/19 17:09) Other meloxicam [From Mobic] Allergy (Verified 03/10/19 17:09) Chest tightness Sulfa (Sulfonamide Antibiotics) Allergy (Verified 03/10/19 17:09) Itching tramadol Allergy (Verified 03/10/19 17:09) SEIZURES morphine Adverse Reaction (Verified 03/10/19 17:09) Other ANXIETY Home Medications: Ambulatory Orders Medication Instructions Recorded Acetaminophen [Tylenol] 650 mg PO Q8H PRN PRN 10/18/17 Ibuprofen [Motrin] 800 mg PO Q6H PRN PRN 10/18/17 Levothyroxine [Synthroid] 75 mcg PO DAILY 10/18/17 Olanzapine [Zyprexa] 10 mg PO BID 10/18/17 Omeprazole 40 mg PO BID 12/14/18 Vortioxetine Hydrobromide 10 mg PO QHS 12/14/18 [Trintellix] Surgical History: Surgical History (Last Reviewed 03/10/19 @ 23:02 by Dewayne Dodge MD) S/P appendectomy Z90.49 S/P cholecystectomy Z90.49 colon left wrist 2016 s/p back Psychiatric History: Anxiety, Depression Lives: With Family Smoking Status: Light Smoker (<10/day) Tobacco Use: Cigarettes Alcohol: None - *Family History Maternal History Items: Diabetes, Heart Disease Paternal History Items: Cancer - Colon, Diabetes, Heart Disease - Heart attack Review of Systems Constitutional: Denies: Chills, Fever, Weight Change HEENT: Denies: Head Aches, Sinus Congestion, Sinus Drainage Cardiovascular: Denies: Chest Pain, Palpitations Respiratory: Denies: Cough, Shortness of breath at rest, Sputum production Gastrointestinal: Reports: Abdominal Pain, Diarrhea, Nausea, Vomiting Genitourinary: Denies: Dysuria Musculoskeletal: Denies: Joint Pain, Joint Tenderness Skin: Denies: Rash, Wounds Neurological: Denies: Numbness, Tingling, Focal weakness Psychiatric: Denies: Anxiety, Depression, Homicidal Ideations, Suicidal Ideations Hematologic/ Lymphatic: Denies: Easy Bruising, Easy Bleeding VTE Information - Inpt Only VTE Present on Admission: No VTE Mechan Device Prophylaxis: None VTE Pharm Prophylaxis ordered?: Yes Patient Problems: Active and Suspected Problems (Last Reviewed 03/10/19 @ 23:02 by Dewayne Dodge MD) Acute gastroenteritis (Acute) - Physical Exam General: Alert, Oriented x3, Cooperative HEENT: Atraumatic, PERRLA, EOMI, Normocephalic Neck: Supple, No JVD, Negative Carotid Bruits Lungs: Clear to auscultation, Normal air movement Cardiovascular: Regular rate, No murmurs Abdomen: Bowel Sounds Present, Soft, Tender - Generalized abdominal tenderness, - - Healed midline incision Extremities: No edema, Capillary Refill Less than 3 Seconds Skin: No rashes, No breakdown Musculoskeletal: No Tenderness to Palpation of Joints or Extremities Neurological: Cranial nerves II-XII grossly intact Psych/Mental Status: - - Crying secondary to pain Vital Signs Temp Pulse Resp BP Pulse Ox 98.4 F 81 16 120/82 H 99 03/10/19 17:10 03/10/19 19:39 03/10/19 19:39 03/10/19 19:39 03/10/19 19:39 Oxygen Delivery Method Room Air Weight: 74.843 kg Body Mass Index (BMI) 27.4 Microbiology Past 72 Hours 03/10/19 18:10 C. difficile DNA Amplification - Final Stool Laboratory Tests Past 24 Hrs 03/10/19 03/10/19 03/10/19 17:35 17:35 18:10 WBC 10.2 RBC 5.16 Hgb 15.9 H Hct 47.9 H MCV 92.8 MCH 30.8 MCHC 33.2 RDW 14.6 RDW Differential 49.4 H Plt Count 301 MPV 9.8 Immature Gran % (Auto) 0.100 Neut % (Auto) 53.3 Lymph % (Auto) 32.5 [place] % (Auto) 10.5 H Eos % (Auto) 3.0 Baso % (Auto) 0.6 Absolute Neuts (auto) 5.4 Absolute Lymphs (auto) 3.30 Total Counted Not Reportable Sodium 138 Potassium 4.3 Chloride 109 H Carbon Dioxide 18.0 L Anion Gap 11 BUN 21 H Creatinine 1.20 H Estim Creat Clear Calc 51.59 Est GFR (MDRD) Af Amer 62 Est GFR (MDRD) Non-Af 51 L BUN/Creatinine Ratio 17.5 Glucose 100 Calcium 9.0 Total Bilirubin 0.40 AST 19 ALT 23 Alkaline Phosphatase 94 Total Protein 8.2 Albumin 4.1 Globulin 4.1 Albumin/Globulin Ratio 1.0 Lipase 120 Urine Color Yellow Urine Clarity Cloudy Urine pH 5.0 Ur Specific [place] 1.020 Urine Protein 30 H Urine Glucose (UA) Normal Urine Ketones 5 H Urine Occult Blood 25 H Urine Nitrite Negative Urine Bilirubin 1 H Urine Urobilinogen 1 H Ur Leukocyte Esterase 25 H Urine RBC 0-5 SEEN Urine WBC 0 SEEN Ur Squamous Epith Cells 0-5 SEEN Urine Bacteria 0 SEEN Hyaline Casts 10-25 SEEN Fine Granular Casts 0-5 SEEN Urine Mucus 0 SEEN Assessment/Plan All Active Problems (Last Reviewed 03/10/19 @ 23:02 by Dewayne Dodge MD) Acute gastroenteritis (Acute) Carpal tunnel syndrome on left (Acute) Nonunion of fracture (Acute) Pelvic pain in female (Acute) The patient is a 48 year old F with a significant history of chronic back and right shoulder pain; C-diff s/p colectomy; depression and anxiety; and hypothyroidism who presented with one day history of epigastric pain; nausea and vomiting that started after eating a ham and cheese sandwich consistently for acute gastroenteritis. Acute gastroenteritis Probable viral. Supportive treatment at this time. Received normal saline bolus at emergency department. Because of hyperchloremia will transition to lactated Ringer's maintenance infusion. Patient is allergic to morphine. PRN Dilaudid ordered. Received Bentyl at the ED. Bentyl prn for abdominal cramps. PRN antiemetics Zofran. Enteric bacteriology was ordered at the emergency department; follow. N.p.o. except meds. Trend CBC and BMP PAPA On presentation her creatinine was 1.20 Review of old records show that on 12/14/2018 her creatinine was 0.91; and on 02/04/2017 her creatinine was 0.84. BUN over creatinine is 17.5. Gentle IV hydration Trend BMP Chronic pain PRN ibuprofen and Tylenol continued Dilaudid as needed for abdominal pain Hypothyroidism Synthroid continued Depression anxiety Olanzapine and Vortioxetine continued. DVT Prophylaxis Subcutaneous Lovenox ordered. Code Visit OBSV E&M: 97218 Initial observation care L3
[2019-03-10 23:41] VITALS: BMI 27.5
[2019-03-10 23:45] VITALS: BMI 27.5
[2019-03-10 23:55] VITALS: BP 111/71; PULSE 72; RESP 16; TEMP 36.6; O2SAT 96
[2019-03-10] MEDS: Lactated Ringers 1,000 ML 100 ML IV (23:57)
[2019-03-10] MEDS: OLANZapine 10 MG Tablet PO (23:57)
[2019-03-10] MEDS: 0.9% NaCl Peripheral Flush Adult/Peds IV (23:59)
--- NOTE | 2019-03-11 00:15 | ED.RN ---
ATTEMPTED TO DISPO PATIENT CHARTING. UNABLE TO LOCATE CHARTING IN PATIENT WORKLIST. PATIENT ADMITTED TO [facility]. DR. CAMEJO FOR GASTEROENTRITIS.
[2019-03-11] MEDS: Ondansetron 4 MG/2 ML Vial IV ×4 (00:22→21:43)
[2019-03-11 06:08] VITALS: BP 114/68; PULSE 78; RESP 16; TEMP 36.5; O2SAT 96
[2019-03-11] MEDS: HYDROmorphone 1 MG/ML Syringe IV ×5 (06:09→21:40)
[2019-03-11] MEDS: Levothyroxine 75 MCG Tablet PO (06:09)
[2019-03-11 06:45] LABS: Absolute Lymphocyte Count 2.32 X10^3/ul (0.83-4.51); Absolute Neutrophil Count 2.6 X10^3/uL (2.0-7.7); Basophil# 0.04 X10^3/uL; Basophil% 0.7 % (0-1); Eosinophils% 5.1 % (0-5); Hematocrit 40.1 % (37-47); Lymphocyte # 2.32 X10^3/ul (4.0); Lymphocyte % 39.1 % (19-41); Mean Corp Hgb Conc 32.4 g/gl (32-36); Mean Corpuscular Hgb 30.7 pg (27.0-32.0); Mean Corpuscular Volume 94.8 fL (81-99); Mean Platelet Vol. 9.8 fl (6.2-12.0); Monocyte# 0.64 X10^3/uL; Monocyte% 10.8 % (0-10); Neutrophil # 2.62 X10^3/uL (2.7-7.7); Neutrophil % 44.1 % (47-70); Platelet Count 221 K/mm3 (150-450); RBC Distribution Width CV 14.7 % (11.6-14.6); RBC Distribution Width SD 50.4 fl (35.1-43.9); Red Blood Count 4.23 M/mm3 (4.2-5.4); White Blood Count 5.9 K/mm3 (4.4-11.0)
[2019-03-11 06:49] LABS: Anion Gap 6 (5-15); BUN 15 mg/dL (7-18); BUN/Creat Ratio 17.1 RATIO (10-20); Calcium,Total 8.1 mg/dL (8.5-10.1); Chloride 113 mmol/L (98-107); Creatinine, Serum 0.88 mg/dL (0.55-1.02); EST Glomerular Filtration Rate 73 mL/min (>60); Est Glom Filt Rate - Afr Amer 88 mL/min (>60); Estimated Creatinine Clearance 70.35 ml/min; Glucose 78 mg/dL (74-106); Potassium 3.8 mmol/L (3.5-5.1); Sodium Level 140 mmol/L (136-145)
[2019-03-11 06:51] VITALS: O2SAT 95
[2019-03-11 06:57] LABS: POSITIVE COUNT NO; POSITIVE DIFFERENTIAL NO; POSITIVE MORPHOLOGY NO
[2019-03-11] MEDS: Ibuprofen 400 MG Tablet 800 MG PO (08:17)
[2019-03-11] MEDS: Dicyclomine 10 MG Capsule PO ×2 (08:17→19:44)
[2019-03-11 08:27] VITALS: BP 96/58; PULSE 75; RESP 16; TEMP 36.9; O2SAT 95
[2019-03-11] MEDS: Pantoprazole Sodium 40 MG Tablet PO ×2 (09:29→21:40)
[2019-03-11] MEDS: Lactated Ringers 1,000 ML 100 ML IV (09:30)
[2019-03-11] MEDS: Acetaminophen 325 MG Tablet 650 MG PO (10:12)
[2019-03-11] MEDS: OLANZapine 10 MG Tablet PO ×2 (10:12→21:39)
[2019-03-11] MEDS: Enoxaparin 40 MG/0.4 ML Syringe SC (10:12)
--- NOTE | 2019-03-11 11:00 | PN_ITS ---
Patient Problems: Active and Suspected Problems (Last Reviewed 03/10/19 @ 23:02 by Dewayne Dodge MD) Acute gastroenteritis (Acute) Vitals/I&O's: Vital Signs Temp Pulse Resp BP Pulse Ox 98.4 F 75 16 96/58 L 95 03/11/19 08:27 03/11/19 08:27 03/11/19 08:27 03/11/19 08:27 03/11/19 08:27 Oxygen Delivery Method Room Air Weight: 75 kg Body Mass Index (BMI) 27.5 Microbiology Past 72 Hours 03/10/19 18:10 Stool Enteric Bacteriology - Final Shiga Toxin 2 03/10/19 18:10 Stool C. difficile DNA Amplification - Final Laboratory Results 03/10/19 17:35: WBC 10.2, RBC 5.16, Hgb 15.9 H, Hct 47.9 H, MCV 92.8, MCH 30.8, MCHC 33.2, RDW 14.6, RDW Differential 49.4 H, Plt Count 301, MPV 9.8, Immature Gran % (Auto) 0.100, Neut % (Auto) 53.3, Lymph % (Auto) 32.5, [place] % (Auto) 10.5 H, Eos % (Auto) 3.0, Baso % (Auto) 0.6, Absolute Neuts (auto) 5.4, Absolute Lymphs (auto) 3.30, Total Counted Not Reportable 03/10/19 17:35: Sodium 138, Potassium 4.3, Chloride 109 H, Carbon Dioxide 18.0 L , Anion Gap 11, BUN 21 H, Creatinine 1.20 H, Estim Creat Clear Calc 51.59, Est GFR (MDRD) Af Amer 62, Est GFR (MDRD) Non-Af 51 L, BUN/Creatinine Ratio 17.5, Glucose 100, Calcium 9.0, Total Bilirubin 0.40, AST 19, ALT 23, Alkaline Phospha tase 94, Total Protein 8.2, Albumin 4.1, Globulin 4.1, Albumin/Globulin Ratio 1.0, Lipase 120 03/10/19 18:10: Urine Color Yellow, Urine Clarity Cloudy, Urine pH 5.0, Ur Specific [place] 1.020, Urine Protein 30 H, Urine Glucose (UA) Normal, Urine Ketones 5 H, Urine Occult Blood 25 H, Urine Nitrite Negative, Urine Bilirubin 1 H, Urine Urobilinogen 1 H, Ur Leukocyte Esterase 25 H, Urine RBC 0-5 SEEN, Urine WBC 0 SEEN, Ur Squamous Epith Cells 0-5 SEEN, Urine Bacteria 0 SEEN, Hyaline Casts 10-25 SEEN, Fine Granular Casts 0-5 SEEN, Urine Mucus 0 SEEN 03/11/19 06:14: WBC 5.9, RBC 4.23, Hgb 13.0, Hct 40.1, MCV 94.8, MCH 30.7, MCHC 32.4, RDW 14.7 H, RDW Differential 50.4 H, Plt Count 221, MPV 9.8, Immature Gran % (Auto) 0.200, Neut % (Auto) 44.1 L, Lymph % (Auto) 39.1, [place] % (Auto) 10.8 H, Eos % (Auto) 5.1 H, Baso % (Auto) 0.7, Absolute Neuts (auto) 2.6, Absolute Lymphs (auto) 2.32, Total Counted Not Reportable 03/11/19 06:14: Sodium 140, Potassium 3.8, Chloride 113 H, Carbon Dioxide 21.0, Anion Gap 6, BUN 15, Creatinine 0.88, Estim Creat Clear Calc 70.35, Est GFR (MDRD) Af Amer 88, Est GFR (MDRD) Non-Af 73, BUN/Creatinine Ratio 17.1, Glucose 78, Calcium 8.1 L Current Medications Acetaminophen (Tylenol) 650 mg PO Q6H PRN PRN PRN Reason: Mild Pain (1-3)/Temp > 100.7 F Last Admin: 03/11/19 10:12 Dose: 650 mg Dextrose (D50w Syringe) 0 gm IV X1 PRN; Protocol PRN Reason: Hypoglycemia Dicyclomine HCl (Bentyl) 10 mg PO Q8H PRN PRN PRN Reason: Abdominal cramps Last Admin: 03/11/19 08:17 Dose: 10 mg Enoxaparin Sodium (Lovenox) 40 mg SC DAILY [facility] Last Admin: 03/11/19 10:12 Dose: 40 mg Glucagon () 1 mg IM .X1 PRN PRN Reason: Hypoglycemia Hydromorphone HCl (Dilaudid Inj) 1 mg IV Q3H PRN PRN PRN Reason: Severe pain (7-10/10) Last Admin: 03/11/19 09:29 Dose: 1 mg Lactated Ringer's () 1,000 mls @ 100 mls/hr IV .Q10H [facility] Stop: 03/11/19 19:30 Last Admin: 03/11/19 09:30 Dose: 100 mls/hr Ibuprofen (Motrin) 800 mg PO Q6H PRN PRN PRN Reason: PAIN Last Admin: 03/11/19 08:17 Dose: 800 mg Levothyroxine Sodium (Synthroid) 75 mcg PO DAILY@0600 [facility] Last Admin: 03/11/19 06:09 Dose: 75 mcg Nicotine (Nicoderm Cq (Pbkc)) 21 mg TRANSDERM. DAILY [facility] Last Admin: 03/10/19 23:57 Dose: 21 mg Olanzapine (Zyprexa) 10 mg PO BID [facility] Last Admin: 03/11/19 10:12 Dose: 10 mg Ondansetron HCl (Zofran) 4 mg IV Q6H PRN PRN PRN Reason: NAUSEA/VOMITING Last Admin: 03/11/19 06:09 Dose: 4 mg Pantoprazole Sodium (Protonix) 40 mg PO BID [facility] Last Admin: 03/11/19 09:29 Dose: 40 mg Sodium Chloride () 5 - 15 ml IV UD PRN PRN Reason: SALINE FLUSH Last Admin: 03/10/19 23:59 Dose: 10 ml Medical Necessity - Tobacco Use Smoking Status: Light Smoker (<10/day) Tobacco Use: Cigarettes Assessment/Plan All Active Problems (Last Reviewed 03/10/19 @ 23:02 by Dewayne Dodge MD) Acute gastroenteritis (Acute) Carpal tunnel syndrome on left (Acute) Nonunion of fracture (Acute) Pelvic pain in female (Acute)
--- NOTE | 2019-03-11 11:12 | PCM.PN.HOSP ---
Patient Problems: Active and Suspected Problems (Last Reviewed 03/10/19 @ 23:02 by Dewayne Dodge MD) Acute gastroenteritis (Acute) Subjective: Patient is a 48-year-old lady with history of colectomy following severe C. difficile colitis admitted with abdominal cramps associated with nausea and vomiting and assessment of acute gastroenteritis made admitted to regular nursing floor for further management Objective: GENERAL: Appears to be in some distress HEENT: Atraumatic; EYES; Anicteric, NECK; supple, normal thyroid, RESPIRATORY: Diminished to auscultation CARDIOVASCULAR: Regular S1 S2, GI: soft, normoactive bowel sounds, : No Renal angle tenderness; EXTREMITIES: No edema, no clubbing, NEURO: Awake; no lateralizing signs. SKIN: No Rash PSYCH; flat affect Vitals/I&O's: Vital Signs Temp Pulse Resp BP Pulse Ox 98.4 F 75 16 96/58 L 95 03/11/19 08:27 03/11/19 08:27 03/11/19 08:27 03/11/19 08:27 03/11/19 08:27 Oxygen Delivery Method Room Air Weight: 75 kg Body Mass Index (BMI) 27.5 Microbiology Past 72 Hours 03/10/19 18:10 Stool Enteric Bacteriology - Final Shiga Toxin 2 03/10/19 18:10 Stool C. difficile DNA Amplification - Final Laboratory Results 03/10/19 17:35: WBC 10.2, RBC 5.16, Hgb 15.9 H, Hct 47.9 H, MCV 92.8, MCH 30.8, MCHC 33.2, RDW 14.6, RDW Differential 49.4 H, Plt Count 301, MPV 9.8, Immature Gran % (Auto) 0.100, Neut % (Auto) 53.3, Lymph % (Auto) 32.5, [place] % (Auto) 10.5 H, Eos % (Auto) 3.0, Baso % (Auto) 0.6, Absolute Neuts (auto) 5.4, Absolute Lymphs (auto) 3.30, Total Counted Not Reportable 03/10/19 17:35: Sodium 138, Potassium 4.3, Chloride 109 H, Carbon Dioxide 18.0 L, Anion Gap 11, BUN 21 H, Creatinine 1.20 H, Estim Creat Clear Calc 51.59, Est GFR (MDRD) Af Amer 62, Est GFR (MDRD) Non-Af 51 L, BUN/Creatinine Ratio 17.5, Glucose 100, Calcium 9.0, Total Bilirubin 0.40, AST 19, ALT 23, Alkaline Phosphatase 94, Total Protein 8.2, Albumin 4.1, Globulin 4.1, Albumin/Globulin Ratio 1.0, Lipase 120 03/10/19 18:10: Urine Color Yellow, Urine Clarity Cloudy, Urine pH 5.0, Ur Specific [place] 1.020, Urine Protein 30 H, Urine Glucose (UA) Normal, Urine Ketones 5 H, Urine Occult Blood 25 H, Urine Nitrite Negative, Urine Bilirubin 1 H, Urine Urobilinogen 1 H, Ur Leukocyte Esterase 25 H, Urine RBC 0-5 SEEN, Urine WBC 0 SEEN, Ur Squamous Epith Cells 0-5 SEEN, Urine Bacteria 0 SEEN, Hyaline Casts 10-25 SEEN, Fine Granular Casts 0-5 SEEN, Urine Mucus 0 SEEN 03/11/19 06:14: WBC 5.9, RBC 4.23, Hgb 13.0, Hct 40.1, MCV 94.8, MCH 30.7, MCHC 32.4, RDW 14.7 H, RDW Differential 50.4 H, Plt Count 221, MPV 9.8, Immature Gran % (Auto) 0.200, Neut % (Auto) 44.1 L, Lymph % (Auto) 39.1, [place] % (Auto) 10.8 H, Eos % (Auto) 5.1 H, Baso % (Auto) 0.7, Absolute Neuts (auto) 2.6, Absolute Lymphs (auto) 2.32, Total Counted Not Reportable 03/11/19 06:14: Sodium 140, Potassium 3.8, Chloride 113 H, Carbon Dioxide 21.0, Anion Gap 6, BUN 15, Creatinine 0.88, Estim Creat Clear Calc 70.35, Est GFR (MDRD) Af Amer 88, Est GFR (MDRD) Non-Af 73, BUN/Creatinine Ratio 17.1, Glucose 78, Calcium 8.1 L Current Medications Acetaminophen (Tylenol) 650 mg PO Q6H PRN PRN PRN Reason: Mild Pain (1-3)/Temp > 100.7 F Last Admin: 03/11/19 10:12 Dose: 650 mg Dextrose (D50w Syringe) 0 gm IV X1 PRN; Protocol PRN Reason: Hypoglycemia Dicyclomine HCl (Bentyl) 10 mg PO Q8H PRN PRN PRN Reason: Abdominal cramps Last Admin: 03/11/19 08:17 Dose: 10 mg Enoxaparin Sodium (Lovenox) 40 mg SC DAILY [facility] Last Admin: 03/11/19 10:12 Dose: 40 mg Glucagon () 1 mg IM .X1 PRN PRN Reason: Hypoglycemia Hydromorphone HCl (Dilaudid Inj) 1 mg IV Q3H PRN PRN PRN Reason: Severe pain (7-07/18) Last Admin: 03/11/19 09:29 Dose: 1 mg Lactated Ringer's () 1,000 mls @ 100 mls/hr IV .Q10H [facility] Stop: 03/11/19 19:30 Last Admin: 03/11/19 09:30 Dose: 100 mls/hr Ibuprofen (Motrin) 800 mg PO Q6H PRN PRN PRN Reason: PAIN Last Admin: 03/11/19 08:17 Dose: 800 mg Levothyroxine Sodium (Synthroid) 75 mcg PO DAILY@0600 [facility] Last Admin: 03/11/19 06:09 Dose: 75 mcg Nicotine (Nicoderm Cq (Pbkc)) 21 mg TRANSDERM. DAILY [facility] Last Admin: 03/10/19 23:57 Dose: 21 mg Olanzapine (Zyprexa) 10 mg PO BID [facility] Last Admin: 03/11/19 10:12 Dose: 10 mg Ondansetron HCl (Zofran) 4 mg IV Q6H PRN PRN PRN Reason: NAUSEA/VOMITING Last Admin: 03/11/19 06:09 Dose: 4 mg Pantoprazole Sodium (Protonix) 40 mg PO BID [facility] Last Admin: 03/11/19 09:29 Dose: 40 mg Sodium Chloride () 5 - 15 ml IV UD PRN PRN Reason: SALINE FLUSH Last Admin: 03/10/19 23:59 Dose: 10 ml Medical Necessity - Tobacco Use Smoking Status: Light Smoker (<10/day) Tobacco Use: Cigarettes Assessment/Plan All Active Problems (Last Reviewed 03/10/19 @ 23:02 by Dewayne Dodge MD) Acute gastroenteritis (Acute) Carpal tunnel syndrome on left (Acute) Nonunion of fracture (Acute) Pelvic pain in female (Acute) Patient is a 48-year-old lady with history of colectomy following severe C. difficile colitis admitted with abdominal cramps associated with nausea and vomiting and assessment of acute gastroenteritis made admitted to regular nursing floor for further management 1. Acute gastroenteritis . Patient stool assay came back positive for Shiga toxins. C. difficile was ruled out. Patient admitted to regular nursing floor for symptomatic management 2. History of colectomy following severe C. difficile colitis 3. History of chronic back pain 4. Hypothyroidism-patient is on levothyroxine home dose continued 5. Depression with anxiety 6. Tobacco dependence counseled on cessation, offered nicotine patch for tobacco cravings 7. DVT prophylaxis SC Lovenox Active Medications Acetaminophen (Tylenol) 650 mg PO Q6H PRN PRN PRN Reason: Mild Pain (1-3)/Temp > 100.7 F Last Admin: 03/11/19 10:12 Dose: 650 mg Dextrose (D50w Syringe) 0 gm IV X1 PRN; Protocol PRN Reason: Hypoglycemia Dicyclomine HCl (Bentyl) 10 mg PO Q8H PRN PRN PRN Reason: Abdominal cramps Last Admin: 03/11/19 08:17 Dose: 10 mg Enoxaparin Sodium (Lovenox) 40 mg SC DAILY [facility] Last Admin: 03/11/19 10:12 Dose: 40 mg Glucagon () 1 mg IM .X1 PRN PRN Reason: Hypoglycemia Hydromorphone HCl (Dilaudid Inj) 1 mg IV Q3H PRN PRN PRN Reason: Severe pain (7-10/10) Last Admin: 03/11/19 09:29 Dose: 1 mg Lactated Ringer's () 1,000 mls @ 100 mls/hr IV .Q10H [facility] Stop: 03/11/19 19:30 Last Admin: 03/11/19 09:30 Dose: 100 mls/hr Ibuprofen (Motrin) 800 mg PO Q6H PRN PRN PRN Reason: PAIN Last Admin: 03/11/19 08:17 Dose: 800 mg Levothyroxine Sodium (Synthroid) 75 mcg PO DAILY@0600 [facility] Last Admin: 03/11/19 06:09 Dose: 75 mcg Nicotine (Nicoderm Cq (Pbkc)) 21 mg TRANSDERM. DAILY [facility] Last Admin: 03/10/19 23:57 Dose: 21 mg Olanzapine (Zyprexa) 10 mg PO BID [facility] Last Admin: 03/11/19 10:12 Dose: 10 mg Ondansetron HCl (Zofran) 4 mg IV Q6H PRN PRN PRN Reason: NAUSEA/VOMITING Last Admin: 03/11/19 06:09 Dose: 4 mg Pantoprazole Sodium (Protonix) 40 mg PO BID [facility] Last Admin: 03/11/19 09:29 Dose: 40 mg Sodium Chloride () 5 - 15 ml IV UD PRN PRN Reason: SALINE FLUSH Last Admin: 03/10/19 23:59 Dose: 10 ml Clinical Impression(s) from Imaging Studies Abdomen/Pelvis CT 03/10/19 17:33 IMPRESSION: Almost all the colon has been resected. Inflammation involving the distal remaining small bowel. Individualized dose optimization techniques were used for this CT. at 2111 Reported and signed by: Sidney López MD Electronically Signed: Sidney López MD at 21:10 EDT Tel , Service support , The patient is a 48 year old F with a significant history of chronic back and right shoulder pain; C-diff s/p colectomy; depression and anxiety; and hypothyroidism who presented with a two- day history of epigastric pain; nausea and vomiting that started after eating a ham and cheese sandwich. Although multiple people ate the same ham and cheese sandwich nobody developed the above symptoms except the patient. She reports a constant epigastric aching pain of severity 6 out of 10; with episodic squeezing pain of severity 10 out of 10. Her pain radiates to her back. Her pain increases with eating; drinking or lie on her back. Her pain improves when she lie on her side or use a heating pad. Her aunt was diagnosed with C. difficile last week. Patient reported that her pain is reminiscent of her previous diverticulitis and C. difficile. C. difficile test was negative at the ED. Code Visit OBSV E&M: 90694 Initial observation care L3
--- NOTE | 2019-03-11 11:16 | PN_ITS ---
Patient Problems: Active and Suspected Problems (Last Reviewed 03/10/19 @ 23:02 by Dewayne Dodge MD) Acute gastroenteritis (Acute) Subjective: Patient is a 48-year-old lady with history of colectomy following severe C. difficile colitis admitted with abdominal cramps associated with nausea and vomiting and assessment of acute gastroenteritis made admitted to regular nursing floor for further management Objective: GENERAL: Appears to be in some distress HEENT: Atraumatic; EYES; Anicteric, NECK; supple, normal thyroid, RESPIRATORY: Diminished to auscultation CARDIOVASCULAR: Regular S1 S2, GI: soft, normoactive bowel sounds, : No Renal angle tenderness; EXTREMITIES: No edema, no clubbing, NEURO: Awake; no lateralizing signs. SKIN: No Rash PSYCH; flat affect Vitals/I&O's: Vital Signs Temp Pulse Resp BP Pulse Ox 98.4 F 75 16 96/58 L 95 03/11/19 08:27 03/11/19 08:27 03/11/19 08:27 03/11/19 08:27 03/11/19 08:27 Oxygen Delivery Method Room Air Weight: 75 kg Body Mass Index (BMI) 27.5 Microbiology Past 72 Hours 03/10/19 18:10 Stool Enteric Bacteriology - Final Shiga Toxin 2 03/10/19 18:10 Stool C. difficile DNA Amplification - Final Laboratory Results 03/10/19 17:35: WBC 10.2, RBC 5.16, Hgb 15.9 H, Hct 47.9 H, MCV 92.8, MCH 30.8, MCHC 33.2, RDW 14.6, RDW Differential 49.4 H, Plt Count 301, MPV 9.8, Immature Gran % (Auto) 0.100, Neut % (Auto) 53.3, Lymph % (Auto) 32.5, [place] % (Auto) 10.5 H, Eos % (Auto) 3.0, Baso % (Auto) 0.6, Absolute Neuts (auto) 5.4, Absolute Lymphs (auto) 3.30, Total Counted Not Reportable 03/10/19 17:35: Sodium 138, Potassium 4.3, Chloride 109 H, Carbon Dioxide 18.0 L , Anion Gap 11, BUN 21 H, Creatinine 1.20 H, Estim Creat Clear Calc 51.59, Est GFR (MDRD) Af Amer 62, Est GFR (MDRD) Non-Af 51 L, BUN/Creatinine Ratio 17.5, Glucose 100, Calcium 9.0, Total Bilirubin 0.40, AST 19, ALT 23, Alkaline Phosphatase 94, Total Protein 8.2, Albumin 4.1, Globulin 4.1, Albumin/Globulin Ratio 1.0, Lipase 120 03/10/19 18:10: Urine Color Yellow, Urine Clarity Cloudy, Urine pH 5.0, Ur Specific [place] 1.020, Urine Protein 30 H, Urine Glucose (UA) Normal, Urine Ketones 5 H, Urine Occult Blood 25 H, Urine Nitrite Negative, Urine Bilirubin 1 H, Urine Urobilinogen 1 H, Ur Leukocyte Esterase 25 H, Urine RBC 0-5 SEEN, Urine WBC 0 SEEN, Ur Squamous Epith Cells 0-5 SEEN, Urine Bacteria 0 SEEN, Hyaline Casts 10-25 SEEN, Fine Granular Casts 0-5 SEEN, Urine Mucus 0 SEEN 03/11/19 06:14: WBC 5.9, RBC 4.23, Hgb 13.0, Hct 40.1, MCV 94.8, MCH 30.7, MCHC 32.4, RDW 14.7 H, RDW Differential 50.4 H, Plt Count 221, MPV 9.8, Immature Gran % (Auto) 0.200, Neut % (Auto) 44.1 L, Lymph % (Auto) 39.1, [place] % (Auto) 10.8 H, Eos % (Auto) 5.1 H, Baso % (Auto) 0.7, Absolute Neuts (auto) 2.6, Absolute Lymphs (auto) 2.32, Total Counted Not Reportable 03/11/19 06:14: Sodium 140, Potassium 3.8, Chloride 113 H, Carbon Dioxide 21.0, Anion Gap 6, BUN 15, Creatinine 0.88, Estim Creat Clear Calc 70.35, Est GFR (MDRD) Af Amer 88, Est GFR (MDRD) Non-Af 73, BUN/Creatinine Ratio 17.1, Glucose 78, Calcium 8.1 L Current Medications Acetaminophen (Tylenol) 650 mg PO Q6H PRN PRN PRN Reason: Mild Pain (1-3)/Temp > 100.7 F Last Admin: 03/11/19 10:12 Dose: 650 mg Dextrose (D50w Syringe) 0 gm IV X1 PRN; Protocol PRN Reason: Hypoglycemia Dicyclomine HCl (Bentyl) 10 mg PO Q8H PRN PRN PRN Reason: Abdominal cramps Last Admin: 03/11/19 08:17 Dose: 10 mg Enoxaparin Sodium (Lovenox) 40 mg SC DAILY [facility] Last Admin: 03/11/19 10:12 Dose: 40 mg Glucagon () 1 mg IM .X1 PRN PRN Reason: Hypoglycemia Hydromorphone HCl (Dilaudid Inj) 1 mg IV Q3H PRN PRN PRN Reason: Severe pain (7-07/18) Last Admin: 03/11/19 09:29 Dose: 1 mg Lactated Ringer's () 1,000 mls @ 100 mls/hr IV .Q10H [facility] Stop: 03/11/19 19:30 Last Admin: 03/11/19 09:30 Dose: 100 mls/hr Ibuprofen (Motrin) 800 mg PO Q6H PRN PRN PRN Reason: PAIN Last Admin: 03/11/19 08:17 Dose: 800 mg Levothyroxine Sodium (Synthroid) 75 mcg PO DAILY@0600 [facility] Last Admin: 03/11/19 06:09 Dose: 75 mcg Nicotine (Nicoderm Cq (Pbkc)) 21 mg TRANSDERM. DAILY [facility] Last Admin: 03/10/19 23:57 Dose: 21 mg Olanzapine (Zyprexa) 10 mg PO BID [facility] Last Admin: 03/11/19 10:12 Dose: 10 mg Ondansetron HCl (Zofran) 4 mg IV Q6H PRN PRN PRN Reason: NAUSEA/VOMITING Last Admin: 03/11/19 06:09 Dose: 4 mg Pantoprazole Sodium (Protonix) 40 mg PO BID [facility] Last Admin: 03/11/19 09:29 Dose: 40 mg Sodium Chloride () 5 - 15 ml IV UD PRN PRN Reason: SALINE FLUSH Last Admin: 03/10/19 23:59 Dose: 10 ml Medical Necessity - Tobacco Use Smoking Status: Light Smoker (<10/day) Tobacco Use: Cigarettes Assessment/Plan All Active Problems (Last Reviewed 03/10/19 @ 23:02 by Dewayne Dodge MD) Acute gastroenteritis (Acute) Carpal tunnel syndrome on left (Acute) Nonunion of fracture (Acute) Pelvic pain in female (Acute) Patient is a 48-year-old lady with history of colectomy following severe C. difficile colitis admitted with abdominal cramps associated with nausea and vomiting and assessment of acute gastroenteritis made admitted to regular nursing floor for further management 1. Acute gastroenteritis . Patient stool assay came back positive for Shiga toxins. C. difficile was ruled out. Patient admitted to regular nursing floor for symptomatic management 2. History of colectomy following severe C. difficile colitis 3. History of chronic back pain 4. Hypothyroidism-patient is on levothyroxine home dose continued 5. Depression with anxiety 6. Tobacco dependence counseled on cessation, offered nicotine patch for tobacco cravings 7. DVT prophylaxis SC Lovenox Active Medications Acetaminophen (Tylenol) 650 mg PO Q6H PRN PRN PRN Reason: Mild Pain (1-3)/Temp > 100.7 F Last Admin: 03/11/19 10:12 Dose: 650 mg Dextrose (D50w Syringe) 0 gm IV X1 PRN; Protocol PRN Reason: Hypoglycemia Dicyclomine HCl (Bentyl) 10 mg PO Q8H PRN PRN PRN Reason: Abdominal cramps Last Admin: 03/11/19 08:17 Dose: 10 mg Enoxaparin Sodium (Lovenox) 40 mg SC DAILY [facility] Last Admin: 03/11/19 10:12 Dose: 40 mg Glucagon () 1 mg IM .X1 PRN PRN Reason: Hypoglycemia Hydromorphone HCl (Dilaudid Inj) 1 mg IV Q3H PRN PRN PRN Reason: Severe pain (7-10/10) Last Admin: 03/11/19 09:29 Dose: 1 mg Lactated Ringer's () 1,000 mls @ 100 mls/hr IV .Q10H [facility] Stop: 03/11/19 19:30 Last Admin: 03/11/19 09:30 Dose: 100 mls/hr Ibuprofen (Motrin) 800 mg PO Q6H PRN PRN PRN Reason: PAIN Last Admin: 03/11/19 08:17 Dose: 800 mg Levothyroxine Sodium (Synthroid) 75 mcg PO DAILY@0600 [facility] Last Admin: 03/11/19 06:09 Dose: 75 mcg Nicotine (Nicoderm Cq (Pbkc)) 21 mg TRANSDERM. DAILY [facility] Last Admin: 03/10/19 23:57 Dose: 21 mg Olanzapine (Zyprexa) 10 mg PO BID [facility] Last Admin: 03/11/19 10:12 Dose: 10 mg Ondansetron HCl (Zofran) 4 mg IV Q6H PRN PRN PRN Reason: NAUSEA/VOMITING Last Admin: 03/11/19 06:09 Dose: 4 mg Pantoprazole Sodium (Protonix) 40 mg PO BID [facility] Last Admin: 03/11/19 09:29 Dose: 40 mg Sodium Chloride () 5 - 15 ml IV UD PRN PRN Reason: SALINE FLUSH Last Admin: 03/10/19 23:59 Dose: 10 ml Clinical Impression(s) from Imaging Studies Abdomen/Pelvis CT 03/10/19 17:33 IMPRESSION: Almost all the colon has been resected. Inflammation involving the distal remaining small bowel. Individualized dose optimization techniques were used for this CT. at 2111 Reported and signed by: Sidney López MD Electronically Signed: Sidney López MD at 21:10 EDT Tel , Service support , The patient is a 48 year old F with a significant history of chronic back and right shoulder pain; C-diff s/p colectomy; depression and anxiety; and hypothyroidism who presented with a two- day history of epigastric pain; nausea and vomiting that started after eating a ham and cheese sandwich. Although multiple people ate the same ham and cheese sandwich nobody developed the above symptoms except the patient. She reports a constant epigastric aching pain of severity 6 out of 10; with episodic squeezing pain of severity 10 out of 10. Her pain radiates to her back. Her pain increases with eating; drinking or lie on her back. Her pain improves when she lie on her side or use a heating pad. Her aunt was diagnosed with C. difficile last week. Patient reported that her pain is reminiscent of her previous diverticulitis and C. difficile. C. difficile test was negative at the ED. Code Visit OBSV E&M: 37910 Initial observation care L3
--- NOTE | 2019-03-11 11:19 | PCM.PN.HOSP ---
Patient Problems: Active and Suspected Problems (Last Reviewed 03/10/19 @ 23:02 by Dewayne Dodge MD) Acute gastroenteritis (Acute) Subjective: Patient is a 48-year-old lady with history of colectomy following severe C. difficile colitis admitted with abdominal cramps associated with nausea and vomiting and assessment of acute gastroenteritis made admitted to regular nursing floor for further management Objective: GENERAL: Appears to be in some distress HEENT: Atraumatic; EYES; Anicteric, NECK; supple, normal thyroid, RESPIRATORY: Diminished to auscultation CARDIOVASCULAR: Regular S1 S2, GI: soft, normoactive bowel sounds, : No Renal angle tenderness; EXTREMITIES: No edema, no clubbing, NEURO: Awake; no lateralizing signs. SKIN: No Rash PSYCH; flat affect Vitals/I&O's: Vital Signs Temp Pulse Resp BP Pulse Ox 98.4 F 75 16 96/58 L 95 03/11/19 08:27 03/11/19 08:27 03/11/19 08:27 03/11/19 08:27 03/11/19 08:27 Oxygen Delivery Method Room Air Weight: 75 kg Body Mass Index (BMI) 27.5 Microbiology Past 72 Hours 03/10/19 18:10 Stool Enteric Bacteriology - Final Shiga Toxin 2 03/10/19 18:10 Stool C. difficile DNA Amplification - Final Laboratory Results 03/10/19 17:35: WBC 10.2, RBC 5.16, Hgb 15.9 H, Hct 47.9 H, MCV 92.8, MCH 30.8, MCHC 33.2, RDW 14.6, RDW Differential 49.4 H, Plt Count 301, MPV 9.8, Immature Gran % (Auto) 0.100, Neut % (Auto) 53.3, Lymph % (Auto) 32.5, [place] % (Auto) 10.5 H, Eos % (Auto) 3.0, Baso % (Auto) 0.6, Absolute Neuts (auto) 5.4, Absolute Lymphs (auto) 3.30, Total Counted Not Reportable 03/10/19 17:35: Sodium 138, Potassium 4.3, Chloride 109 H, Carbon Dioxide 18.0 L, Anion Gap 11, BUN 21 H, Creatinine 1.20 H, Estim Creat Clear Calc 51.59, Est GFR (MDRD) Af Amer 62, Est GFR (MDRD) Non-Af 51 L, BUN/Creatinine Ratio 17.5, Glucose 100, Calcium 9.0, Total Bilirubin 0.40, AST 19, ALT 23, Alkaline Phosphatase 94, Total Protein 8.2, Albumin 4.1, Globulin 4.1, Albumin/Globulin Ratio 1.0, Lipase 120 03/10/19 18:10: Urine Color Yellow, Urine Clarity Cloudy, Urine pH 5.0, Ur Specific [place] 1.020, Urine Protein 30 H, Urine Glucose (UA) Normal, Urine Ketones 5 H, Urine Occult Blood 25 H, Urine Nitrite Negative, Urine Bilirubin 1 H, Urine Urobilinogen 1 H, Ur Leukocyte Esterase 25 H, Urine RBC 0-5 SEEN, Urine WBC 0 SEEN, Ur Squamous Epith Cells 0-5 SEEN, Urine Bacteria 0 SEEN, Hyaline Casts 10-25 SEEN, Fine Granular Casts 0-5 SEEN, Urine Mucus 0 SEEN 03/11/19 06:14: WBC 5.9, RBC 4.23, Hgb 13.0, Hct 40.1, MCV 94.8, MCH 30.7, MCHC 32.4, RDW 14.7 H, RDW Differential 50.4 H, Plt Count 221, MPV 9.8, Immature Gran % (Auto) 0.200, Neut % (Auto) 44.1 L, Lymph % (Auto) 39.1, [place] % (Auto) 10.8 H, Eos % (Auto) 5.1 H, Baso % (Auto) 0.7, Absolute Neuts (auto) 2.6, Absolute Lymphs (auto) 2.32, Total Counted Not Reportable 03/11/19 06:14: Sodium 140, Potassium 3.8, Chloride 113 H, Carbon Dioxide 21.0, Anion Gap 6, BUN 15, Creatinine 0.88, Estim Creat Clear Calc 70.35, Est GFR (MDRD) Af Amer 88, Est GFR (MDRD) Non-Af 73, BUN/Creatinine Ratio 17.1, Glucose 78, Calcium 8.1 L Current Medications Acetaminophen (Tylenol) 650 mg PO Q6H PRN PRN PRN Reason: Mild Pain (1-3)/Temp > 100.7 F Last Admin: 03/11/19 10:12 Dose: 650 mg Al Hydroxide/Mg Hydroxide (Mylanta Ii) 30 ml PO X1 [facility] Stop: 03/11/19 11:18 Dextrose (D50w Syringe) 0 gm IV X1 PRN; Protocol PRN Reason: Hypoglycemia Dicyclomine HCl (Bentyl) 10 mg PO Q8H PRN PRN PRN Reason: Abdominal cramps Last Admin: 03/11/19 08:17 Dose: 10 mg Enoxaparin Sodium (Lovenox) 40 mg SC DAILY [facility] BEDS AT [facility] Last Admin: 03/11/19 10:12 Dose: 40 mg Glucagon () 1 mg IM .X1 PRN PRN Reason: Hypoglycemia Hydromorphone HCl (Dilaudid Inj) 1 mg IV Q3H PRN PRN PRN Reason: Severe pain (7-07/18) Last Admin: 03/11/19 09:29 Dose: 1 mg Lactated Ringer's () 1,000 mls @ 100 mls/hr IV .Q10H [facility] Stop: 03/11/19 19:30 Last Admin: 03/11/19 09:30 Dose: 100 mls/hr Ibuprofen (Motrin) 800 mg PO Q6H PRN PRN PRN Reason: PAIN Last Admin: 03/11/19 08:17 Dose: 800 mg Levothyroxine Sodium (Synthroid) 75 mcg PO DAILY@0600 [facility] 234 BEDS [facility] Last Admin: 03/11/19 06:09 Dose: 75 mcg Lidocaine HCl (Xylocaine Viscous) 15 ml PO X1 [facility] Stop: 03/11/19 11:18 Nicotine (Nicoderm Cq (Pbkc)) 21 mg TRANSDERM. DAILY [facility] 234 BEDS AT [facility] Last Admin: 03/10/19 23:57 Dose: 21 mg Olanzapine (Zyprexa) 10 mg PO BID [facility] 234 B[facility]S AT [facility] Last Admin: 03/11/19 10:12 Dose: 10 mg Ondansetron HCl (Zofran) 4 mg IV Q6H PRN PRN PRN Reason: NAUSEA/VOMITING Last Admin: 03/11/19 06:09 Dose: 4 mg Pantoprazole Sodium (Protonix) 40 mg PO BID [facility] 234 BEDS AT [facility] Last Admin: 03/11/19 09:29 Dose: 40 mg Sodium Chloride () 5 - 15 ml IV UD PRN PRN Reason: SALINE FLUSH Last Admin: 03/10/19 23:59 Dose: 10 ml Medical Necessity - Tobacco Use Smoking Status: Light Smoker (<10/day) Tobacco Use: Cigarettes Assessment/Plan All Active Problems (Last Reviewed 03/10/19 @ 23:02 by Dewayne Dodge MD) Acute gastroenteritis (Acute) Carpal tunnel syndrome on left (Acute) Nonunion of fracture (Acute) Pelvic pain in female (Acute) Patient is a 48-year-old lady with history of colectomy following severe C. difficile colitis admitted with abdominal cramps associated with nausea and vomiting and assessment of acute gastroenteritis made admitted to regular nursing floor for further management 1. Acute gastroenteritis . Patient stool assay came back positive for Shiga toxins. C. difficile was ruled out. Patient admitted to regular nursing floor for symptomatic management 2. History of colectomy following severe C. difficile colitis 3. History of chronic back pain 4. Hypothyroidism-patient is on levothyroxine home dose continued 5. Depression with anxiety 6. Tobacco dependence counseled on cessation, offered nicotine patch for tobacco cravings 7. DVT prophylaxis SC Lovenox Active Medications Acetaminophen (Tylenol) 650 mg PO Q6H PRN PRN PRN Reason: Mild Pain (1-3)/Temp > 100.7 F Last Admin: 03/11/19 10:12 Dose: 650 mg Dextrose (D50w Syringe) 0 gm IV X1 PRN; Protocol PRN Reason: Hypoglycemia Dicyclomine HCl (Bentyl) 10 mg PO Q8H PRN PRN PRN Reason: Abdominal cramps Last Admin: 03/11/19 08:17 Dose: 10 mg Enoxaparin Sodium (Lovenox) 40 mg SC DAILY [facility] Last Admin: 03/11/19 10:12 Dose: 40 mg Glucagon () 1 mg IM .X1 PRN PRN Reason: Hypoglycemia Hydromorphone HCl (Dilaudid Inj) 1 mg IV Q3H PRN PRN PRN Reason: Severe pain (7-10/10) Last Admin: 03/11/19 09:29 Dose: 1 mg Lactated Ringer's () 1,000 mls @ 100 mls/hr IV .Q10H [facility] Stop: 03/11/19 19:30 Last Admin: 03/11/19 09:30 Dose: 100 mls/hr Ibuprofen (Motrin) 800 mg PO Q6H PRN PRN PRN Reason: PAIN Last Admin: 03/11/19 08:17 Dose: 800 mg Levothyroxine Sodium (Synthroid) 75 mcg PO DAILY@0600 [facility] 234 BEDS AT [facility] Last Admin: 03/11/19 06:09 Dose: 75 mcg Nicotine (Nicoderm Cq (Pbkc)) 21 mg TRANSDERM. DAILY [facility] 234 BEDS AT [facility] Last Admin: 03/10/19 23:57 Dose: 21 mg Olanzapine (Zyprexa) 10 mg PO BID [facility] 234 B[facility]S AT [facility] Last Admin: 03/11/19 10:12 Dose: 10 mg Ondansetron HCl (Zofran) 4 mg IV Q6H PRN PRN PRN Reason: NAUSEA/VOMITING Last Admin: 03/11/19 06:09 Dose: 4 mg Pantoprazole Sodium (Protonix) 40 mg PO BID [facility] 234 BEDS AT [facility] Last Admin: 03/11/19 09:29 Dose: 40 mg Sodium Chloride () 5 - 15 ml IV UD PRN PRN Reason: SALINE FLUSH Last Admin: 03/10/19 23:59 Dose: 10 ml Clinical Impression(s) from Imaging Studies Abdomen/Pelvis CT 03/10/19 17:33 IMPRESSION: Almost all the colon has been resected. Inflammation involving the distal remaining small bowel. Individualized dose optimization techniques were used for this CT. at 2111 Reported and signed by: Sidney López MD Electronically Signed: Sidney López MD at 21:10 EDT Tel , Service support , Code Visit Inpatient E&M: 98099 Subs Hosp L2
[2019-03-11] MEDS: Mag Hydrox/Al Hydrox/Simeth 30 ML UDC PO (12:11)
[2019-03-11] MEDS: 0.9% NaCl Peripheral Flush Adult/Peds IV ×2 (12:39→21:40)
[2019-03-11 16:06] VITALS: BP 109/72; PULSE 71; RESP 16; TEMP 37; O2SAT 95
[2019-03-11] MEDS: oxyCODONE 5 MG Tablet PO (19:09)
[2019-03-11 19:48] VITALS: BP 118/81; PULSE 78; RESP 14; TEMP 36.6; O2SAT 96
[2019-03-11] MEDS: VORTIOXETINE HYDROBROMIDE 10 MG TABLET PO (21:39)
[2019-03-12] MEDS: oxyCODONE 5 MG Tablet PO ×3 (00:02→08:47)
[2019-03-12 02:45] VITALS: BP 102/64; PULSE 88; RESP 16; TEMP 36.6; O2SAT 94
[2019-03-12] MEDS: HYDROmorphone 1 MG/ML Syringe IV ×2 (02:57→06:24)
[2019-03-12] MEDS: 0.9% NaCl Peripheral Flush Adult/Peds IV ×2 (02:57→06:24)
[2019-03-12] MEDS: Acetaminophen 325 MG Tablet 650 MG PO (04:42)
[2019-03-12] MEDS: Dicyclomine 10 MG Capsule PO (04:42)
[2019-03-12 06:01] LABS: Absolute Lymphocyte Count 1.64 X10^3/ul (0.83-4.51); Absolute Neutrophil Count 2.2 X10^3/uL (2.0-7.7); Basophil# 0.02 X10^3/uL; Basophil% 0.4 % (0-1); Eosinophil# 0.23 X10^3/uL; Eosinophils% 4.9 % (0-5); Hematocrit 35.7 % (37-47); Hemoglobin 11.5 g/dl (12.0-15.0); Lymphocyte # 1.64 X10^3/ul (4.0); Lymphocyte % 34.8 % (19-41); Mean Corp Hgb Conc 32.2 g/gl (32-36); Mean Corpuscular Hgb 30.4 pg (27.0-32.0); Mean Corpuscular Volume 94.4 fL (81-99); Mean Platelet Vol. 10.2 fl (6.2-12.0); Monocyte# 0.63 X10^3/uL; Monocyte% 13.4 % (0-10); Neutrophil # 2.19 X10^3/uL (2.7-7.7); Neutrophil % 46.5 % (47-70); Platelet Count 177 K/mm3 (150-450); RBC Distribution Width CV 14.3 % (11.6-14.6); RBC Distribution Width SD 47.2 fl (35.1-43.9); Red Blood Count 3.78 M/mm3 (4.2-5.4); White Blood Count 4.7 K/mm3 (4.4-11.0)
[2019-03-12 06:07] LABS: POSITIVE COUNT NO; POSITIVE DIFFERENTIAL NO; POSITIVE MORPHOLOGY NO
[2019-03-12 06:11] LABS: Anion Gap 7 (5-15); BUN 8 mg/dL (7-18); BUN/Creat Ratio 9.9 RATIO (10-20); Chloride 113 mmol/L (98-107); Creatinine, Serum 0.81 mg/dL (0.55-1.02); EST Glomerular Filtration Rate 80 mL/min (>60); Est Glom Filt Rate - Afr Amer 97 mL/min (>60); Estimated Creatinine Clearance 76.43 ml/min; Glucose 90 mg/dL (74-106); Magnesium 1.9 mg/dL (1.6-2.6); Potassium 3.8 mmol/L (3.5-5.1); Sodium Level 143 mmol/L (136-145)
[2019-03-12] MEDS: Levothyroxine 75 MCG Tablet PO (06:24)
[2019-03-12] MEDS: Ondansetron 4 MG/2 ML Vial IV (06:32)
[2019-03-12] MEDS: Ibuprofen 400 MG Tablet 800 MG PO (07:52)
[2019-03-12 07:54] VITALS: BP 91/56; PULSE 72; RESP 16; TEMP 37.1; O2SAT 96
--- NOTE | 2019-03-12 08:12 | DCINST_ITS ---
- Discharge Diagnoses Current Active Problems: Current Active and Chronic Problems (Last Reviewed 03/10/19 @ 23:02 by Dewayne Dodge MD) Acute gastroenteritis (Acute) You will use the following diet at home:: No restrictions Discharge Activity: May not drive while taking narcotic pain medications. Allergies/Adverse Reactions: Allergies codeine Allergy (Verified 03/10/19 17:09) Other meloxicam [From Mobic] Allergy (Verified 03/10/19 17:09) Chest tightness Sulfa (Sulfonamide Antibiotics) Allergy (Verified 03/10/19 17:09) Itching tramadol Allergy (Verified 03/10/19 17:09) SEIZURES morphine Adverse Reaction (Verified 03/10/19 17:09) Other ANXIETY Medications to take at Discharge Acetaminophen [Tylenol] 650 mg PO Q8H PRN PRN 10/18/17 Levothyroxine [Synthroid] 75 mcg PO DAILY 10/18/17 Olanzapine [Zyprexa] 10 mg PO BID 10/18/17 Omeprazole 40 mg PO BID 12/14/18 Vortioxetine Hydrobromide [Trintellix] 10 mg PO QHS 12/14/18 Dicyclomine HCl [Bentyl] 10 mg PO Q8H PRN PRN #30 cap 03/12/19 Oxycodone [Oxyir] 5 mg PO Q4H PRN PRN 3 Days #14 tab 03/12/19 The following prescriptions were given: Dicyclomine HCl [Bentyl] 10 mg PO Q8H PRN PRN #30 cap PRN Reason: Abdominal cramps Oxycodone [Oxyir] 5 mg PO Q4H PRN PRN 3 Days #14 tab PRN Reason: Severe Pain (6-07/18) Primary Care Physician: Warren Samson MD [Primary Care Provider] - Test Results: Test results from this visit will be discussed in further detail at your follow- up appointment, if applicable. Proposed Discharge Date: 03/12/19
--- NOTE | 2019-03-12 08:12 | PCM.DC.SUM ---
Discharge Date and Diagnosis - Problem List Patient Problems: Active and Suspected Problems (Last Reviewed 03/10/19 @ 23:02 by Dewayne Dodge MD) Acute gastroenteritis (Acute) Date of Admission: 03/10/19 Date of Discharge: 03/12/19 - Primary Discharge Diagnosis Active and Suspected Problems (Last Reviewed 03/10/19 @ 23:02 by Dewayne Dodge MD) Acute gastroenteritis (Acute) - Secondary Discharge Diagnosis Chronic Problems (Last Reviewed 03/10/19 @ 23:02 by Dewayne Dodge MD) Calcific tendinitis of right shoulder (Chronic) Hospital Course and Treatment Summary of Care Provided: Patient is a 48-year-old lady with history of colectomy following severe C. difficile colitis admitted with abdominal cramps associated with nausea and vomiting and assessment of acute gastroenteritis made admitted to regular nursing floor for further management 1. Acute gastroenteritis . Patient stool assay came back positive for Shiga toxins. C. difficile was ruled out. Patient admitted to regular nursing floor for symptomatic management 2. History of colectomy following severe C. difficile colitis 3. History of chronic back pain 4. Hypothyroidism-patient is on levothyroxine home dose continued 5. Depression with anxiety 6. Tobacco dependence counseled on cessation, offered nicotine patch for tobacco cravings 7. DVT prophylaxis SC Lovenox Patient Problems: Active and Suspected Problems (Last Reviewed 03/10/19 @ 23:02 by Dewayne Dodge MD) Acute gastroenteritis (Acute) Objective: GENERAL: Comfortable HEENT: Atraumatic; EYES; Anicteric, NECK; supple, normal thyroid, RESPIRATORY: Diminished to auscultation CARDIOVASCULAR: Regular S1 S2, GI: soft, normoactive bowel sounds, : No Renal angle tenderness; EXTREMITIES: No edema, no clubbing, NEURO: Awake; no lateralizing signs. SKIN: No Rash PSYCH; flat affect - Physical Exam Vital Signs Temp Pulse Resp BP Pulse Ox 98.7 F 72 16 91/56 L 96 03/12/19 07:54 03/12/19 07:54 03/12/19 07:54 03/12/19 07:54 03/12/19 07:54 Oxygen Delivery Method Room Air Weight: 75 kg Body Mass Index (BMI) 27.5 Intake and Output for Last 24 Hours 03/10/19 03/11/19 03/12/19 23:59 23:59 23:59 Intake Total 2210 / 2210 700 / 700 Output Total 100 / 100 200 / 200 Balance 2110 / 2110 500 / 500 Microbiology Past 72 Hours 03/10/19 18:10 Enteric Bacteriology - Final Stool Shiga Toxin 2 03/10/19 18:10 C. difficile DNA Amplification - Final Stool Laboratory Tests Past 24 Hrs 03/12/19 03/12/19 05:35 05:35 WBC 4.7 RBC 3.78 L Hgb 11.5 L Hct 35.7 L MCV 94.4 MCH 30.4 MCHC 32.2 RDW 14.3 RDW Differential 47.2 H Plt Count 177 MPV 10.2 Immature Gran % (Auto) 0.000 Neut % (Auto) 46.5 L Lymph % (Auto) 34.8 [place] % (Auto) 13.4 H Eos % (Auto) 4.9 Baso % (Auto) 0.4 Absolute Neuts (auto) 2.2 Absolute Lymphs (auto) 1.64 Total Counted Not Reportable Sodium 143 Potassium 3.8 Chloride 113 H Carbon Dioxide 23.0 Anion Gap 7 BUN 8 Creatinine 0.81 Estim Creat Clear Calc 76.43 Est GFR (MDRD) Af Amer 97 Est GFR (MDRD) Non-Af 80 BUN/Creatinine Ratio 9.9 L Glucose 90 Calcium 8.0 L Magnesium 1.9 Discharge Diet: No Restrictions Discharge Activity: May not drive while taking narcotic pain medications. Home Medications: Medications to take at Discharge Acetaminophen [Tylenol] 650 mg PO Q8H PRN PRN 10/18/17 Levothyroxine [Synthroid] 75 mcg PO DAILY 10/18/17 Olanzapine [Zyprexa] 10 mg PO BID 10/18/17 Omeprazole 40 mg PO BID 12/14/18 Vortioxetine Hydrobromide [Trintellix] 10 mg PO QHS 12/14/18 Dicyclomine HCl [Bentyl] 10 mg PO Q8H PRN PRN #30 cap 03/12/19 Oxycodone [Oxyir] 5 mg PO Q4H PRN PRN 3 Days #14 tab 03/12/19 Following Prescrptions Were Given to Patient: Dicyclomine HCl [Bentyl] 10 mg PO Q8H PRN PRN #30 cap PRN Reason: Abdominal cramps Oxycodone [Oxyir] 5 mg PO Q4H PRN PRN 3 Days #14 tab PRN Reason: Severe Pain (6-07/18) Primary Care Physician: Warren Samson MD [Primary Care Provider] - Disposition: Home Minutes spent on discharge:: 35 Patient Condition:: Stable Medical Necessity - Tobacco Use Smoking Status: Light Smoker (<10/day) Tobacco Use: Cigarettes Meaningful Use Info Meaningful Use Diagnoses (Choose all that apply): None applicable Code Visit OBSV E&M: 55911 Observation care discharge
[2019-03-12 08:48] VITALS: BP 115/72; PULSE 78
== END 2019-03-12 09:05 | disposition home or self-care (01) ==
LOC: ED 17:36 → MS2 23:06
PROVIDERS: Admitting Provider Hospitalist; Emergency Provider Emergency Medicine; Family Provider Family Medicine; PCP Family Medicine; Visit Provider Internal Medicine
DX: K52.9 Noninfective gastroenteritis and colitis, unspecified (principal); E03.9 Hypothyroidism, unspecified; G89.29 Other chronic pain; M75.31 Calcific tendinitis of right shoulder; F17.210 Nicotine dependence, cigarettes, uncomplicated; F41.8 Other specified anxiety disorders; Z90.49 Acquired absence of other specified parts of digestive tract; Z79.899 Other long term (current) drug therapy
CPT/HCPCS: 36415; 74177; 80048; 80053; 81001; 83690; 83735; 85025; 87493; 87506; 96361; 96372; 96374; 96375; 96376; 99218; 99284; 99406; J7030; J7120; Q9967; A4216; G0378; J2405

== ENCOUNTER 2019-03-14 09:43 | Emergency (ER) | payer MEDICAID, SELFPAY ==
[2019-03-14 09:44] VITALS: BP 140/99; PULSE 82; RESP 18; TEMP 36.6; O2SAT 100; BMI 27.4
--- NOTE | 2019-03-14 10:15 | ED.DCSUM_ITS ---
History of Present Illness Chief Complaint: Abd Pain Informant: Patient Onset: Days Context: Sudden Onset Timing: Continuous Quality: Watery diarrhea with mucus Location: Not applicable Current Severity: Severe Maximum Severity: Severe Worsened by: Stool enteric pathogen panel positive Shigella toxin Relieved by: Nothing Associated Symptoms: Thirst, dry mouth, orthostatic symptoms and fever last evening Narrative: On March 10 and discharged on March 12 for acute gastroenteritis. Patient's C. difficile toxin was negative. Her stool for enteric pathogen was positive for Shigella. Patient was not discharged on antibiotics. She reports profuse diarrhea. She reports nausea and abdominal pain when she attempts to eat or drink anything. She reports dry mouth, thirst and orthostatic symptoms. She denies cardiac or respiratory symptoms. She denies urologic symptoms. Prior similar symptoms: Yes Recent Illness/Hospitalization: Yes - Past Medical History (1) 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 Status: Acute Past Medical History - Allergies and Home Meds Allergies/Adverse Reactions: Allergies codeine Allergy (Verified 03/14/19 09:46) Other meloxicam [From Mobic] Allergy (Verified 03/14/19 09:46) Chest tightness Sulfa (Sulfonamide Antibiotics) Allergy (Verified 03/14/19 09:46) Itching tramadol Allergy (Verified 03/14/19 09:46) SEIZURES morphine Adverse Reaction (Verified 03/14/19 09:46) Other ANXIETY Primary Care Physician: Warren Samson MD [NON-STAFF] - Prior records reviewed: Yes - Recent admission and discharge summary and labs Surgical History: noncontributory Lives: Spouse/ Significant Other, With Family Smoking Status: Light Smoker (<10/day) Alcohol: None - Family History Maternal Family History: Reports: Diabetes, Heart Disease Paternal Family History: Reports: Cancer - Colon, Diabetes, Heart Disease - Heart attack Review of Systems General: Reports: Chills, Fever, Malaise, Weight loss. Denies: Subjective, Sweats Eyes: Denies: Visual changes - bilaterally, Blurred Vision - bilaterally ENT: Denies: Bilateral ear pain, Rhinorrhea, Sore throat Cardiovascular: Denies: Chest pain, Palpitations Respiratory: Denies: Dyspnea, Cough, Dyspnea on exertion Gastrointestinal: Reports: Abdominal pain, Nausea, Diarrhea. Denies: Vomiting, Constipation, Melena, Hematochezia Genitourinary: Denies: Dysuria, Hematuria, Frequency Musculoskeletal: Reports: Myalgias. Denies: Arthralgias, Neck pain, Back pain, Swelling, Extremity Pain, -, - Skin: Denies: Rash, Wounds Neurological: Reports: Weakness. Denies: Headache, Parasthesia, Numbness Hematologic: Denies: Easy bruising, Easy bleeding Allergy: Denies: Swelling of the mouth, Swelling of the tongue Physical Exam Vital Signs/Narrative: Vital Signs Temp Pulse Resp BP Pulse Ox 03/14/19 09:44 98 F 82 18 140/99 H 100 Inital Vital Signs reviewed: Yes General: Well nourished, Well developed, Acute Distress Head: Normocephalic, Atraumatic Eyes: Perrl, EOMI. Negative for: Pale conjunctiva, Scleral icterus, - ENT: No rhinorrhea, TM's clear, Dry mucous membranes Neck: Supple, Nontender, No lymphadenopathy, No JVD, - Cardiovascular: Regular rate, Regular rhythm, No murmurs, Normal S1, Normal S2 Respiratory: No distress, CTA bilaterally, Chest nontender Abdomen: Soft, Nondistended, No masses, Tender, Guarding - Voluntary guarding, Hypoactive bowel sounds. Negative for: Nontender, Normal bowel sounds, Rebound tenderness, Hepatomegaly, Splenomegaly, Mass, Pulsatile mass Rectal: Deferred Back: Nontender, Normal Inspection Extremities: Nontender, No edema Skin: Normal color, No rash, No Trauma. Negative for: Cyanosis, Diaphoresis, Jaundice Neurological: Alert, Oriented x3, Cranial nerves II-XII grossly intact, Normal Strength, Normal Sensation Psychological: Depressed Diagnostic/Tx/Re-eval Laboratory Results 03/14/19 03/14/19 10:10 10:10 WBC 8.5 RBC 4.32 Hgb 13.5 Hct 40.1 MCV 92.8 MCH 31.3 MCHC 33.7 RDW 14.2 RDW Differential 48.1 H Plt Count 218 MPV 10.2 Immature Gran % (Auto) 0.000 Neut % (Auto) 73.6 H Lymph % (Auto) 16.9 L [place] % (Auto) 8.4 Eos % (Auto) 0.9 Baso % (Auto) 0.2 Absolute Neuts (auto) 6.2 Absolute Lymphs (auto) 1.43 Total Counted Not Reportable Sodium 141 Potassium 3.7 Chloride 109 H Carbon Dioxide 25.0 Anion Gap 7 BUN 10 Creatinine 0.82 Estim Creat Clear Calc 75.50 Est GFR (MDRD) Af Amer 95 Est GFR (MDRD) Non-Af 78 BUN/Creatinine Ratio 12.1 Glucose 93 Calcium 9.4 - Medical Decision Making With history of continued diarrhea patient was sent to the emergency department. She states her primary care physician recommended metronidazole. Patient was informed that her stool culture was negative for segments and a colitis, but her culture was positive for Shigella. We will treat with ciprofloxacin since she reports allergy to sulfa. IV was established and she received 1 L normal saline. Will assess BMP to evaluate electrolytes and specifically potassium, CO2 anion gap and renal function. CBC was obtained to evaluate white count and H&H. She did receive 4 mg of Zofran IV push. Cipro was ordered orally. If unable to tolerate orals will likely need admission to the hospital for IV antibiotics. Patient passed p.o. challenge. Patient's laboratory results are unremarkable. Plan is to discharge to home with prescription for ciprofloxacin and Bentyl unless she received a prescription for Bentyl at the time of discharge on March 12. She was prescribed 10 mg every 8 hours. Will write prescription for 20 mg 4 times a day. ED Disposition - Plan for ED Patient: Disposition: Home or Assisted Living Diagnosis: Shigella dysenteriae Instructions: ED Gastroenteritis Shigella Ch Prescriptions: Dicyclomine HCl [Bentyl] 20 mg PO TIDAC #20 cap Ciprofloxacin [Cipro] 500 mg PO BID #14 tab Referrals: Warren Samson MD [NON-STAFF] - 3-5 Days if not improving
[2019-03-14 10:23] LABS: Absolute Lymphocyte Count 1.43 X10^3/ul (0.83-4.51); Absolute Neutrophil Count 6.2 X10^3/uL (2.0-7.7); Basophil# 0.02 X10^3/uL; Basophil% 0.2 % (0-1); Eosinophil# 0.08 X10^3/uL; Eosinophils% 0.9 % (0-5); Hematocrit 40.1 % (37-47); Hemoglobin 13.5 g/dl (12.0-15.0); Lymphocyte # 1.43 X10^3/ul (4.0); Lymphocyte % 16.9 % (19-41); Mean Corp Hgb Conc 33.7 g/gl (32-36); Mean Corpuscular Hgb 31.3 pg (27.0-32.0); Mean Corpuscular Volume 92.8 fL (81-99); Mean Platelet Vol. 10.2 fl (6.2-12.0); Monocyte# 0.71 X10^3/uL; Monocyte% 8.4 % (0-10); Neutrophil # 6.21 X10^3/uL (2.7-7.7); Neutrophil % 73.6 % (47-70); POSITIVE COUNT NO; POSITIVE DIFFERENTIAL NO; POSITIVE MORPHOLOGY NO; Platelet Count 218 K/mm3 (150-450); RBC Distribution Width CV 14.2 % (11.6-14.6); RBC Distribution Width SD 48.1 fl (35.1-43.9); Red Blood Count 4.32 M/mm3 (4.2-5.4); White Blood Count 8.5 K/mm3 (4.4-11.0)
[2019-03-14 10:32] LABS: Anion Gap 7 (5-15); BUN 10 mg/dL (7-18); BUN/Creat Ratio 12.1 RATIO (10-20); Calcium,Total 9.4 mg/dL (8.5-10.1); Chloride 109 mmol/L (98-107); Creatinine, Serum 0.82 mg/dL (0.55-1.02); EST Glomerular Filtration Rate 78 mL/min (>60); Est Glom Filt Rate - Afr Amer 95 mL/min (>60); Glucose 93 mg/dL (74-106); Potassium 3.7 mmol/L (3.5-5.1); Sodium Level 141 mmol/L (136-145)
[2019-03-14] MEDS: 0.9% Normal Saline 1,000 ML 1000 ML IV (10:33)
[2019-03-14] MEDS: Ciprofloxacin 500 MG Tablet PO (10:33)
[2019-03-14] MEDS: Ondansetron 4 MG/2 ML Vial IV (10:33)
[2019-03-14] MEDS: Morphine 4 MG/ML Syringe IV (10:43)
[2019-03-14 10:45] VITALS: BP 151/92; PULSE 67; RESP 16; TEMP 36.7; O2SAT 99
[2019-03-14 10:50] VITALS: BP 151/92; PULSE 73; RESP 16; O2SAT 97
[2019-03-14 12:15] VITALS: BP 148/68; PULSE 90; RESP 18; O2SAT 96
[2019-03-14] MEDS: Dicyclomine 10 MG Capsule 20 MG PO (12:15)
== END 2019-03-14 12:18 | disposition home or self-care (01) ==
PROVIDERS: Emergency Provider Emergency Medicine; Family Provider Physician Assistant; PCP Physician Assistant
DX: A03.9 Shigellosis, unspecified (principal); Z87.19 Personal history of other diseases of the digestive system; Z90.49 Acquired absence of other specified parts of digestive tract; F17.200 Nicotine dependence, unspecified, uncomplicated
CPT/HCPCS: 80048; 85025; 96361; 96374; 96375; 99285; J7030; A4216; J2405

== ENCOUNTER 2019-07-10 00:39 | Emergency (ER) | payer MEDICAID, SELFPAY ==
[2019-07-10 00:41] VITALS: BP 144/104; PULSE 94; RESP 17; TEMP 36.7; O2SAT 99; BMI 25.6
[2019-07-10 01:19] VITALS: BP 102/68; PULSE 91; RESP 18; O2SAT 98
--- NOTE | 2019-07-10 01:22 | ED.RN ---
PT WAS SEEN AT ANOTHER ER AND TREATED FOR THE SAME. PT DENIES RECEIVING ANY MEDICATIONS BESIDES TYLENOL AT THE OTHER FACILITY.
--- NOTE | 2019-07-10 02:06 | ED.VIS.GEN ---
History of Present Illness Chief Complaint: Anxiety Narrative: Patient is a 49-year-old female who resents with anxiety. She does have a history of depression and anxiety and is prescribed Vistaril. She was previously on Klonopin. She is scheduled to see a new psychiatrist in 2 weeks. She states her anxiety has been worse recently which she attributes to a lower back strain from lifting something a couple of days ago as well as some conflict with family. She believes conflict with family and pain exacerbated her anxiety day. She felt like her tongue was swelling she felt short of breath and she felt dizzy which was her typical symptoms of panic attack. Past Medical History - Allergies and Home Meds Allergies/Adverse Reactions: Allergies codeine Allergy (Verified 07/10/19 00:40) Other meloxicam [From Mobic] Allergy (Verified 07/10/19 00:40) Chest tightness Sulfa (Sulfonamide Antibiotics) Allergy (Verified 07/10/19 00:40) Itching tramadol Allergy (Verified 07/10/19 00:40) SEIZURES morphine Adverse Reaction (Verified 07/10/19 00:40) Other ANXIETY Primary Care Physician: Fang Jennings PA [Primary Care Provider] - Past Medical History: - - Depression and anxiety Surgical History: noncontributory Smoking Status: Current every day smoker - Family History Maternal Family History: Reports: Diabetes, Heart Disease Paternal Family History: Reports: Cancer - Colon, Diabetes, Heart Disease - Heart attack Review of Systems All systems negative except as indicated General: Denies: Fever Cardiovascular: Reports: - - Dizziness. Denies: Chest pain Respiratory: Reports: Dyspnea Musculoskeletal: Reports: Back pain Psych: Reports: Anxiety Physical Exam Vital Signs/Narrative: Vital Signs Temp Pulse Resp BP Pulse Ox 07/10/19 01:19 91 18 102/68 98 07/10/19 00:41 98.1 F 94 17 144/104 H 99 Inital Vital Signs reviewed: Yes General: Well nourished, Well developed Head: Normocephalic Eyes: EOMI ENT: Moist mucous membranes Neck: Supple Cardiovascular: Regular rate, Regular rhythm Respiratory: No distress Abdomen: Soft Skin: Normal color Neurological: Alert, Oriented x3 Psychological: Normal affect Diagnostic/Tx/Re-eval - Medical Decision Making Patient was given Ativan here. She was advised to follow-up with psychiatry as an outpatient. In regards to her lower back strain she is already on 800 mg ibuprofen and Flexeril. She was advised to continue supportive care. Patient was discharged. ED Disposition - Plan for ED Patient: Disposition: Home or Assisted Living Diagnosis: Low back strain, Anxiety Instructions: Anxiety Reaction, Back Sprain/Strain Referrals: Fang Jennings PA [Primary Care Provider] -
[2019-07-10 02:14] VITALS: RESP 12
--- NOTE | 2019-07-10 02:14 | ED.RN ---
PT GIVEN WRITTEN AND VERBAL DISCHARGE INSTRUCTIONS. PT REFUSES MEDICATION, STATES THAT ISN'T GOING TO HELP MY BACK. THIS RN OFFERS PT EMOTIONAL SUPPORT. PT VERBALIZES UNDERSTANDING OF INSTRUCTIONS AND DENIES ANY FURTHER QUESTIONS. PT AMBULATES OUT OF DEPT BY SELF AFTER REFUSING D/C VS.
== END 2019-07-10 02:17 | disposition home or self-care (01) ==
PROVIDERS: Emergency Provider Emergency Medicine; Family Provider Physician Assistant; PCP Physician Assistant
DX: S39.012A Strain of muscle, fascia and tendon of lower back, initial encounter (principal); F41.9 Anxiety disorder, unspecified; X50.9XXA Other and unspecified overexertion or strenuous movements or postures, initial encounter; Y93.9 Activity, unspecified; Y92.9 Unspecified place or not applicable; F32.9 Major depressive disorder, single episode, unspecified; Z79.899 Other long term (current) drug therapy; F17.200 Nicotine dependence, unspecified, uncomplicated
CPT/HCPCS: 99283

== ENCOUNTER 2019-10-23 13:33 | Emergency (ER) | payer MEDICAID, SELFPAY ==
[2019-10-23 13:34] VITALS: BP 151/101; PULSE 82; PULSE 83; RESP 16; TEMP 36.5; O2SAT 96; O2SAT 97; BMI 24.6
[2019-10-23] MEDS: HYDROcodone Bitartrate/Apap 5/325 Tablet PO (14:23)
[2019-10-23] MEDS: Triamcinolone Acetonide 40 MG/ML Vial IU (14:24)
--- NOTE | 2019-10-23 15:01 | ED.VISSUMM ---
- ER Visit Summary Date of Service: 10/23/19 Chief Complaint: Acute on chronic right shoulder pain. History of Present Illness: The patient is a 49 F history of calcific tendinitis. Has had shoulder joint injections before. Says she was cleaning her apartment the last several days and she started having increasing pain. Denies any fall or trauma. Denies any fever. She is never had any shoulder surgery. Physical Examination: Middle-aged female no acute distress vital signs are stable afebrile. HEENT exam unremarkable. Lungs are clear. Heart regular rhythm. Abdomen soft nontender. Her right shoulder is tender to palpation. There is no redness or warmth. Is not significantly swollen. She has increased pain with attempting to move the shoulder. It does not look like a septic joint. There is no signs of trauma. There is no gross bony deformity. With passive range of motion of her right shoulder she has some discomfort and crepitus consistent with arthritic changes. Her right elbow is nontender nonswollen. Her right wrist is nontender nonswollen. 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 And a normal right arm radial pulse. Test Results: None Emergency Department Course and Treatment: History and exam are consistent with acute exacerbation of right shoulder pain due to calcific tendinitis. Patient requested a joint injection. She was given 2 [place] for pain. I cleaned the shoulder with alcohol swabs multiple times. On the lateral posterior approach I was able to get in the joint and inject a total of 10 cc of lidocaine with Kenalog. She tolerated procedure well. It was then again cleaned with alcohol swabs and a Band-Aid was placed. Patient is getting relief after several minutes. Treatment Plan: Ice to her shoulder. [place] for pain 14 no refill. Follow-up with orthopedic doctor. Disposition: Discharge Impression: Acute on chronic right shoulder pain secondary to a history of calcific tendinitis (acute flare) Right shoulder joint injection with Kenalog and lidocaine by emergency department. This note was generated with hoohbe dictation software. It may contain incorrect words, spelling, and punctuation that were not noted in review of the chart prior to signing ED Disposition - Plan for ED Patient: Referrals: Warren Samson MD [Primary Care Provider] -
--- NOTE | 2019-10-23 15:05 | DCINST.ED_ITS ---
ED Disposition - Plan for ED Patient: Disposition: Home or Assisted Living Instructions: Tendonitis Prescriptions: Hydrocodone/Acetaminophen [[place] 5-325 Tablet] 1 ea PO Q6H PRN PRN 3 Days #14 tab PRN Reason: Pain Or Fever Prescription Printed Ondansetron [Zofran Odt] 4 mg PO Q8H PRN PRN #14 tab PRN Reason: Nausea Prescription Printed Referrals: Warren Samson MD [Primary Care Provider] - As Needed Vernon Sullivan DO [STAFF PHYSICIAN] - 3-5 Days if not improving Additional Instructions: Ice to right shoulder to decrease pain and inflammation. Motrin and [place] for pain. This should progressively improve with the injection if it does not follow-up with your orthopedic doctor. If think it is red or hot or you get a fever return to be re-evaluated.
== END 2019-10-23 15:14 | disposition home or self-care (01) ==
PROVIDERS: Emergency Provider Emergency Medicine; Family Provider Family Medicine; PCP Family Medicine
DX: M75.31 Calcific tendinitis of right shoulder (principal); F32.9 Major depressive disorder, single episode, unspecified; Z79.899 Other long term (current) drug therapy; Z72.0 Tobacco use
CPT/HCPCS: 20610; 99283

== ENCOUNTER 2019-12-23 09:15 | Emergency (ER) | payer MEDICAID, SELFPAY ==
[2019-12-23 09:16] VITALS: BP 139/82; PULSE 82; RESP 18; TEMP 36.6; O2SAT 98; BMI 25.1
--- NOTE | 2019-12-23 09:30 | ED.VIS.UPPEX ---
History of Present Illness Chief Complaint: Upper Extremity Injury Informant: Patient Onset: Month(s) - many Context: Gradual Onset Timing: Waxes and wanes Quality of Pain: Aching Location: R shoulder Current Severity: Severe Maximum Severity: Severe Worsened by: abduction, overhead movements Relieved by: remaining still w/ arm at side Associated Symptoms: Negative for: Parasthesia, Weakness, Loss of Funtion Narrative: Patient has a history of pain in the right shoulder for several years. Started getting worse several months ago, quite a down now it is worse again due to repetitive movements from a new job. I did not start getting worse while at work. This episode started getting worse yesterday. It is the same pain she has been having for years. [id number]. No numbness. Radiates up into her neck on the right. - Past Medical History (1) Anxiety Status: Chronic Past Medical History - Allergies and Home Meds Allergies/Adverse Reactions: Allergies codeine Allergy (Verified 12/23/19 09:19) Other meloxicam [From Mobic] Allergy (Verified 12/23/19 09:19) Chest tightness Sulfa (Sulfonamide Antibiotics) Allergy (Verified 12/23/19 09:19) Itching tramadol Allergy (Verified 12/23/19 09:19) SEIZURES morphine Adverse Reaction (Verified 12/23/19 09:19) Other ANXIETY Primary Care Physician: Warren Samson MD [Primary Care Provider] - Surgical History: noncontributory Lives: Spouse/ Significant Other Smoking Status: Current every day smoker - Family History Maternal Family History: Reports: Diabetes, Heart Disease Paternal Family History: Reports: Cancer - Colon, Diabetes, Heart Disease - Heart attack Review of Systems General: Denies: Chills, Fever, Sweats Musculoskeletal: Reports: Extremity Pain. Denies: Swelling Skin: Denies: Rash, Wounds Neurological: Denies: Headache, Weakness, Numbness Physical Exam Vital Signs/Narrative: Vital Signs Temp Pulse Resp BP Pulse Ox 12/23/19 09:16 97.8 F 82 18 139/82 H 98 General: Well nourished, Well developed, - - nad Head: Normocephalic, Atraumatic Extremeties: Right subacromial tenderness. Negative Yergason. No tenderness at the acromioclavicular joint. No deformity. Good short arc range of motion, very limited abduction due to pain, but is able to forward flex very well at the shoulder. Skin: Normal color, No rash, No Trauma Neurological: Alert, Oriented x3, Cranial nerves II-XII grossly intact, Normal Strength, Normal Sensation, Normal Gait Psychological: Normal affect, Normal Mood Diagnostic/Tx/Re-eval - Medical Decision Making Patient has x-rays from almost 1 year ago showing calcific tendinitis in her right shoulder. This is consistent with that, and in addition she states that someone in the ER tried to give her a cortisone shot in the right shoulder and was taking around in calcium and states that the injection did not help and in fact made her worse. I agree that she needs to see orthopedics. She states she is trying to get in and waiting for insurance to approve the referral. She asked about prednisone which I think is reasonable to try since she was taking [id number] NSAIDs that were not helping. Placed on a taper. ED Disposition - Plan for ED Patient: Disposition: Home or Assisted Living Diagnosis: Calcific tendinitis of right shoulder Instructions: Tendonitis, Shoulder Impingement Syndrome Prescriptions: Prednisone 10 mg PO UD #33 tab Prescription Printed Referrals: Warren Samson MD [Primary Care Provider] - Jim Goins MD [STAFF PHYSICIAN] - (call for appt when approved)
== END 2019-12-23 10:19 | disposition home or self-care (01) ==
LOC: ED 09:41
PROVIDERS: Emergency Provider Emergency Medicine; PCP Family Medicine
DX: M75.31 Calcific tendinitis of right shoulder (principal); F41.9 Anxiety disorder, unspecified; Z79.899 Other long term (current) drug therapy; F17.200 Nicotine dependence, unspecified, uncomplicated
CPT/HCPCS: 99282

== ENCOUNTER 2019-12-24 12:00 | Emergency (ER) | payer MEDICAID, SELFPAY ==
[2019-12-23 09:16] VITALS: BMI 25.1
[2019-12-24 12:01] VITALS: BP 163/84; PULSE 91; RESP 16; TEMP 36.6; O2SAT 99; BMI 25.2
--- NOTE | 2019-12-24 12:16 | ED.VISSUMM ---
- ER Visit Summary Date of Service: 12/24/19 Chief Complaint: [Right shoulder pain] History of Present Illness: The patient is a 49 F [presents to the emergency department with complaint of pain in her right shoulder is been worse over the last 2 days. Patient states that yesterday while at work she was doing some repetitive motions that is required for her job and she felt a pop in her shoulder. Patient was seen in the emergency department and was started on prednisone which she states makes her jittery. Patient has an appointment to see orthopedics tomorrow. Patient states that she was at work today and was given restrictions for no work over her head however she is having too much discomfort to do any work with the right arm and is having pain at times that is burning like and radiating down towards her hand. Patient complains of pain into her neck. Patient denies any new injury or trauma. Patient had x-rays of her right shoulder about a year ago and was noted to have calcific tendinitis. Patient does not want to claim this under workman's comp.] Physical Examination: [HEENT-PERRLA, EOMI. Cranial nerves II through XII grossly intact. TMs clear. Mucous membranes moist. No adenopathy. Cardiovascular-regular rate and rhythm without murmur or ectopy Lungs-clear to auscultation, chest wall stable without crepitus or subcu emphysema Abdomen-normoactive bowel sounds, soft, nontender, no rebound or rigidity, no peritoneal signs. Extremities-intact ?4, normal range of motion, normal pulses, atraumatic. Right shoulder-patient does have tenderness palpation diffusely about the glenohumeral joint. Patient also has tenderness over the area of the trapezius and right cervical paraspinal musculature. He has decreased range of motion at the shoulder secondary to pain however she is able to abduct to 90 degrees and resist abduction. She is neurovascular intact. 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 Deep tendon reflexes are plus 2 out of 4 bilaterally at the bicep, tricep, brachioradialis.] Test Results: [None indicated] Emergency Department Course and Treatment: [She was given a sling. Patient given 1 dose of [place]. Patient will be given work restrictions including no use right arm.] Treatment Plan: [Patient to keep her appointment with orthopedics tomorrow. She understands she may need further work-up such as possibly imaging including MRI to evaluate further at the discretion of the orthopedic surgeon.] Etiology of pain may be due to calcific tendinitis versus cervical radiculopathy. Disposition: [Discharged home in stable condition] Impression: [Right shoulder pain-etiology uncertain] This note was generated with Mixers dictation software. It may contain incorrect words, spelling, and punctuation that were not noted in review of the chart prior to signing ED Disposition - Plan for ED Patient: Referrals: Warren Samson MD [Primary Care Provider] -
--- NOTE | 2019-12-24 12:19 | DCINST.ED_ITS ---
ED Disposition - Plan for ED Patient: Instructions: Shoulder Sprain, Shoulder Impingement Syndrome Prescriptions: Hydrocodone Bitart/Apap 5-325 [[place] 5MG-325MG] 1 tablet PO Q4H PRN PRN 2 Days #10 tablet PRN Reason: Pain Transmission Status: Sent to [facility] Referrals: Warren Samson MD [Primary Care Provider] - Jim Goins MD [STAFF PHYSICIAN] - 1 Day
--- NOTE | 2019-12-24 12:19 | ED.DEP ---
ED Disposition - Plan for ED Patient: Instructions: Shoulder Sprain, Shoulder Impingement Syndrome Prescriptions: Hydrocodone Bitart/Apap 5-325 [[place] 5MG-325MG] 1 tablet PO Q4H PRN PRN 2 Days #10 tablet PRN Reason: Pain Transmission Status: Sent to [facility] Referrals: Warren Samson MD [Primary Care Provider] - Jim Goins MD [STAFF PHYSICIAN] - 1 Day
[2019-12-24] MEDS: HYDROcodone Bitartrate/Apap 5/325 Tablet PO (12:24)
--- NOTE | 2019-12-24 12:30 | DCINST.ED_ITS ---
ED Disposition - Plan for ED Patient: Instructions: Shoulder Impingement Syndrome, Shoulder Sprain Prescriptions: cycloBENZAPRine HCl [Flexeril] 10 mg PO TID PRN #20 tab PRN Reason: Muscle Spasm Transmission Status: Pending to [facility] Hydrocodone Bitart/Apap 5-325 [[place] 5MG-325MG] 1 tab PO Q4H PRN PRN 2 Days #10 tab PRN Reason: Pain Transmission Status: Received by [facility] Referrals: Warren Samson MD [Primary Care Provider] - Jim Goins MD [STAFF PHYSICIAN] - 1 Day
--- NOTE | 2019-12-24 12:30 | ED.DEP ---
ED Disposition - Plan for ED Patient: Instructions: Shoulder Impingement Syndrome, Shoulder Sprain Prescriptions: cycloBENZAPRine HCl [Flexeril] 10 mg PO TID PRN #20 tab PRN Reason: Muscle Spasm Transmission Status: Pending to [facility] Hydrocodone Bitart/Apap 5-325 [[place] 5MG-325MG] 1 tab PO Q4H PRN PRN 2 Days #10 tab PRN Reason: Pain Transmission Status: Received by [facility] Referrals: Warren Samson MD [Primary Care Provider] - Jim Goins MD [STAFF PHYSICIAN] - 1 Day
--- NOTE | 2019-12-24 12:35 | ED.DEP ---
ED Disposition - Plan for ED Patient: Instructions: Shoulder Impingement Syndrome, Shoulder Sprain Prescriptions: cycloBENZAPRine HCl [Flexeril] 10 mg PO TID PRN #20 tab PRN Reason: Muscle Spasm Transmission Status: Received by [facility] Hydrocodone Bitart/Apap 5-325 [[place] 5MG-325MG] 1 tab PO Q4H PRN PRN 2 Days #10 tab PRN Reason: Pain Transmission Status: Received by [facility] Hydrocodone Bitart/Apap 5-325 [[place] 5MG-325MG] 1 tab PO Q4H PRN PRN 2 Days #10 tab PRN Reason: Pain Prescription Printed Referrals: Warren Samson MD [Primary Care Provider] - Jim Goins MD [STAFF PHYSICIAN] - 1 Day
== END 2019-12-24 13:21 | disposition home or self-care (01) ==
PROVIDERS: Emergency Provider Emergency Medicine; PCP Family Medicine
DX: M25.511 Pain in right shoulder (principal); F41.9 Anxiety disorder, unspecified; Z79.899 Other long term (current) drug therapy; Z72.0 Tobacco use
CPT/HCPCS: 99282

== ENCOUNTER 2020-01-03 11:12 | Emergency (ER) | payer MEDICAID, SELFPAY ==
[2020-01-03 11:13] VITALS: BP 103/71; PULSE 81; RESP 19; TEMP 36.6; O2SAT 98; BMI 25.8
--- NOTE | 2020-01-03 11:37 | ED.DCSUM_ITS ---
- ER Visit Summary Date of Service: 01/03/20 Chief Complaint: Abdominal pain with nausea, vomiting and diarrhea. History of Present Illness: The patient is a 49 F with extensive past medical history of multiple abdominal surgeries in occluding a subtotal colectomy, appendectomy, cholecystectomy, hysterectomy, ectopic surgery and back surgery. She also has a history of depression anxiety reportedly C. difficile in the past. Patient states that she has had diarrhea for last 5 days greater than 10 episodes per day. Denies gross blood. And yesterday started having abdominal cramping and nausea and vomiting. No fever positive chills. No cough. No shortness of breath. No dysuria. Physical Examination: Middle-aged female no acute distress anxious and tearful vital signs are stable and afebrile. She does not look septic or toxic. She is in no distress. H EENT exam unremarkable. Moist with membranes. Neck nontender no lymphadenopathy. Lungs clear to auscultation bilaterally. Heart regular rhythm no murmur. Abdomen is soft. Flat. Nondistended. No signs of obstruction. Positive bowel sounds. Multiple prior abdominal surgeries and scars which are well-healed. No obvious hernia or mass. Moving all 4 extremities. Nontender. No edema. Neurologically she is awake and alert with no focal motor deficits. Back nontender. Test Results: A white count of 7 hemoglobin 13. Chemistries unremarkable with normal creatinine gap. Liver enzymes unremarkable. Lipase normal. UA negative. C. difficile was initially ordered but patient did not give a stool sample. Emergency Department Course and Treatment: Patient with nausea, vomiting and diarrhea with reported abdominal pain. Is a benign abdominal exam. Without any signs of obstruction. Labs to be obtained. Also treated with IV fluids and Zofran. Patient refused the Toradol. Stated she wanted some stronger pain for the nursing staff. I explained her she did not need that narcotics were not necessary. She wants to be discharged. Treatment Plan: Fluids and rest. Follow-up with your doctor. Disposition: Discharge Impression: Acute abdominal pain of uncertain etiology Acute nausea, vomiting and diarrhea Drug seeking behavior This note was generated with Vericantation software. It may contain incorrect words, spelling, and punctuation that were not noted in review of the chart prior to signing ED Disposition - Plan for ED Patient: Referrals: Warren Samson MD [Primary Care Provider] -
[2020-01-03] MEDS: Ondansetron 4 MG/2 ML Vial IV (11:39)
[2020-01-03] MEDS: 0.9% Normal Saline 1,000 ML 1000 ML IV (11:39)
[2020-01-03 11:47] LABS: Mucous, Urine 0 SEEN /hpf (<or=2+); Red Blood Cells-Urine 0 SEEN /hpf (0-5)
[2020-01-03 11:48] LABS: Absolute Lymphocyte Count 0.78 X10^3/uL (0.83-4.51); Basophil# 0.02 X10^3/uL; Basophil% 0.3 % (0-1); Eosinophil# 0.04 X10^3/uL; Eosinophils% 0.6 % (0-5); Hematocrit 40.2 % (37-47); Lymphocyte # 0.78 X10^3/ul (4.0); Lymphocyte % 11.1 % (19-41); Mean Corp Hgb Conc 32.3 g/dL (32-36); Mean Corpuscular Hgb 30.4 pg (27.0-32.0); Mean Corpuscular Volume 93.9 fL (81-99); Mean Platelet Vol. 9.5 fl (6.2-12.0); Monocyte# 0.14 X10^3/uL; NRBC Flagged by Analyzer 0 % (0-5); Neutrophil % 85.6 % (47-70); Platelet Count 233 K/mm3 (150-450); RBC Distribution Width CV 13.2 % (11.6-14.6); RBC Distribution Width SD 45.3 fl (35.1-43.9); Red Blood Count 4.28 M/mm3 (4.2-5.4)
[2020-01-03 11:49] LABS: Color, Urine Straw (Yellow); Glucose, Dipstick Normal (Normal); Ketone-Dipstick Negative (Negative); Leukocyte Esterase-Dipstick Negative /ul (Negative); Nitrite-Dipstick Negative (Negative); Occult Blood-Urine Negative /ul (Negative); Protein-Dipstick Negative (Negative); Urine Bilirubin Dipstick Negative (Negative); Urine Clarity Clear (Clear); Urine Urobilinogen Normal (Normal); Urine pH 6.5 (5.0 - 8.0)
[2020-01-03 11:54] LABS: AST(SGOT) 98 U/L (15-37); Alanine Aminotransfer ALT/SGPT 94 U/L (13-56); Albumin, Serum 3.3 g/dL (3.2-5.0); Alkaline Phosphatase 92 U/L (45-117); Anion Gap 4 (5-15); BUN 20 mg/dL (7-18); BUN/Creat Ratio 19.8 RATIO (10-20); Bilirubin, Direct 0.07 mg/dL (0.00-0.30); Calcium,Total 8.6 mg/dL (8.5-10.1); Chloride 112 mmol/L (98-107); Creatinine, Serum 1.01 mg/dL (0.55-1.02); EST Glomerular Filtration Rate 62 mL/min (>60); Est Glom Filt Rate - Afr Amer 75 mL/min (>60); Estimated Creatinine Clearance 60.63 ml/min; Globulin 3.4 g/dL (2.2-4.2); Glucose 142 mg/dL (74-106); Lipase 112 U/L (73-393); Potassium 4.7 mmol/L (3.5-5.1); Protein, Total 6.7 g/dL (6.4-8.2); Sodium Level 139 mmol/L (136-145)
[2020-01-03 12:11] LABS: Bacteria RARE /hpf (None Seen); Squamous Epithelial Cells - UA 0-5 SEEN /hpf (5-10); White Blood Cells 0-5 SEEN /hpf (0-5)
--- NOTE | 2020-01-03 12:12 | ED.DEP ---
ED Disposition - Plan for ED Patient: Disposition: Home or Assisted Living Instructions: ED Abdominal Pain Unkn Cause Fem Prescriptions: Ondansetron [Zofran Odt] 4 mg PO Q8H PRN PRN #7 tab PRN Reason: Nausea Prescription Printed Referrals: Warren Samson MD [Primary Care Provider] - 3-5 Days Additional Instructions: Fluids and rest. Follow-up with your doctor if not improving. All your labs today were unremarkable. Clinically there is no signs of a bowel obstruction. Zofran as needed for nausea.
== END 2020-01-03 12:32 | disposition home or self-care (01) ==
PROVIDERS: Emergency Provider Emergency Medicine; PCP Family Medicine
DX: R10.9 Unspecified abdominal pain (principal); R11.2 Nausea with vomiting, unspecified; R19.7 Diarrhea, unspecified; Z76.5 Malingerer [conscious simulation]; F32.9 Major depressive disorder, single episode, unspecified; F41.9 Anxiety disorder, unspecified; Z86.19 Personal history of other infectious and parasitic diseases; Z90.49 Acquired absence of other specified parts of digestive tract; Z79.899 Other long term (current) drug therapy; F17.200 Nicotine dependence, unspecified, uncomplicated
CPT/HCPCS: 80048; 80076; 81001; 83690; 85025; 96361; 96374; 99283; J7030; A4216; J2405

== ENCOUNTER 2020-07-25 16:24 | Emergency (ER) | payer MEDICAID, SELFPAY ==
[2020-07-25 16:25] VITALS: BP 128/81; PULSE 93; RESP 18; TEMP 36.2; O2SAT 100; BMI 27.6
--- NOTE | 2020-07-25 16:45 | CT_ITS ---
STUDY: CT ABDOMEN AND PELVIS WITH CONTRAST REASON FOR EXAM: Female, 50 years old. ABDOMEN PAIN -- HX:APPY,AUDREY,LUMBAR FUSION,CHOLECYSTECTOMY RADIATION DOSAGE (If Supplied By Facility): CTDIvol = ( 15.75 ) mGy, DLP = ( 849.73 ) mGycm TECHNIQUE: Transaxial images were obtained from the dome of the diaphragm to the symphysis pubis with oral contrast. Oral and amp; IV Gastrografin and amp; 75mL Isovue-370 was administered. Sagittal and coronal images were reconstructed. Individualized dose optimization techniques were used for this CT. COMPARISON: 03/10/2019. FINDINGS: The visualized lung bases are unremarkable. The visualized portions of the heart are within normal limits. Liver shows intrahepatic bile duct distention which was also the case previously. There has been cholecystectomy, and there is prominent extrahepatic bile distention. Common bile duct measures 1.2 cm across. All these findings are stable since previous study. Normal pancreas and spleen. Normal bilateral adrenal glands. Normal right kidney. Normal left kidney. Distal esophagus is distended and filled with contrast, likely representing reflux from the contrast-filled stomach. Contrast has passed throughout the jejunum is grossly normal. There is very little opacification of ileum which is also grossly normal. Again noted is resection of most of the colon except for some stool filled loops in the pelvis. No definite segments of bowel wall thickening. Normal abdominal aorta. Normal inferior vena cava. Normal retroperitoneum. Normal urinary bladder. There is absence of the uterus consistent with a prior hysterectomy. Normal abdominal wall. Stable postsurgical changes of posterior fixation at L5-S1, otherwise normal osseous structures. CT/Abdomen/Pelvis WITH Contrast IMPRESSION: Status post near complete colectomy. No definite acute abnormalities of the remaining loops of large bowel pelvis, and grossly normal. The small bowel. Prominent reflux into the visualized esophagus. Continued prominent intra and extra hepatic bile duct distention. Electronically Signed: Kvng Rey MD at 19:42 EDT , Service support ,
--- NOTE | 2020-07-25 16:46 | ED.DCSUM_ITS ---
- ER Visit Summary Date of Service: 07/25/20 Chief Complaint: [Abdominal pain] History of Present Illness: The patient is a 50 F [ presents with abdominal pain that started about 6 or 7 days ago. Patient's been incontinent of stool since that time. Patient went to [facility] where her general surgeon works and apparently was transferred and admitted to [facility] 5 days ago. Patient was released 3 days ago. Patient states that she was told that her bowel was inflamed and they start her on Cipro and Flagyl. Patient continues to have significant pain that now is radiating to her back. She denies fever although she has had some chills. She denies any blood in her stool. Patient states that she always has diarrhea ever since she had a partial colectomy due to C. difficile. Patient's had prior cholecystectomy and appendectomy. She denies urinary symptoms.] Physical Examination: [HEENT-PERRLA, EOMI. Cranial nerves II through XII grossly intact. TMs clear. Mucous membranes moist. No adenopathy. Cardiovascular-regular rate and rhythm without murmur or ectopy Lungs-clear to auscultation, chest wall stable without crepitus or subcu emphysema Abdomen-normoactive bowel sounds, soft. Patient has diffuse tenderness palpation especially to the right lower quadrant and suprapubic region. No rebound, rigidity, or cranial signs. Extremities-intact ?4, normal range of motion, normal pulses, atraumatic] Test Results: [CBC with differential showed a white count of 7.7, hemoglobin 12, hematocrit 38, placed 223. Chemistries unremarkable. LFTs unremarkable. Lipase was 145. CT scan of the abdomen pelvis with IV and p.o. contrast was unremarkable other than some reflux of contrast to back into the esophagus. Patient had dilated bile ducts which are stable and chronic findings.] I ordered stool for C. difficile however patient did not give sample. Patient was recently tested and she does not know result. Emergency Department Course and Treatment: [IV line established on arrival. Patient was medicated Dilaudid and Zofran.] Treatment Plan: [Patient to continue with her current antibiotics.] Disposition: [Discharged home in stable condition] Impression: [Abdominal pain-etiology uncertain] This note was generated with [email or web address] dictation software. It may contain incorrect words, spelling, and punctuation that were not noted in review of the chart prior to signing ED Disposition - Plan for ED Patient: Referrals: Warren Samson MD [NON-STAFF] -
[2020-07-25 17:13] LABS: Absolute Lymphocyte Count 2.35 X10^3/uL (0.83-4.51); Absolute Neutrophil Count 4.1 X10^3/uL (2.0-7.7); Basophil# 0.06 X10^3/uL; Basophil% 0.8 % (0-1); Eosinophil# 0.32 X10^3/uL; Eosinophils% 4.1 % (0-5); Hematocrit 37.9 % (37-47); Hemoglobin 12.1 g/dL (12.0-15.0); Lymphocyte # 2.35 X10^3/ul (4.0); Lymphocyte % 30.4 % (19-41); Mean Corp Hgb Conc 31.9 g/dL (32-36); Mean Corpuscular Hgb 30.4 pg (27.0-32.0); Mean Corpuscular Volume 95.2 fL (81-99); Mean Platelet Vol. 9.7 fl (6.2-12.0); Monocyte# 0.84 X10^3/uL; Monocyte% 10.9 % (0-10); NRBC Flagged by Analyzer 0 % (0-5); Neutrophil # 4.14 X10^3/uL (2.7-7.7); Neutrophil % 53.5 % (47-70); Platelet Count 223 K/mm3 (150-450); RBC Distribution Width CV 13.7 % (11.6-14.6); RBC Distribution Width SD 48.8 fl (35.1-43.9); Red Blood Count 3.98 M/mm3 (4.2-5.4); White Blood Count 7.7 K/mm3 (4.4-11.0)
[2020-07-25] MEDS: 0.9% Normal Saline 1,000 ML 125 ML IV (17:19)
[2020-07-25] MEDS: Ondansetron 4 MG/2 ML Vial IV (17:19)
[2020-07-25] MEDS: HYDROmorphone 1 MG/ML Syringe IV ×2 (17:20→18:43)
[2020-07-25 17:26] LABS: ALB/GLOB Ratio 0.9 RATIO (0.9-2.4); AST(SGOT) 38 U/L (15-37); Alanine Aminotransfer ALT/SGPT 52 U/L (13-56); Albumin, Serum 3.3 g/dL (3.2-5.0); Alkaline Phosphatase 120 U/L (45-117); Anion Gap 3 (5-15); BUN 21 mg/dL (7-18); BUN/Creat Ratio 22.5 RATIO (10-20); Calcium,Total 8.7 mg/dL (8.5-10.1); Chloride 110 mmol/L (98-107); Creatinine, Serum 0.94 mg/dL (0.55-1.02); EST Glomerular Filtration Rate 67 mL/min (>60); Est Glom Filt Rate - Afr Amer 82 mL/min (>60); Estimated Creatinine Clearance 64.43 ml/min; Globulin 3.5 g/dL (2.2-4.2); Glucose 76 mg/dL (74-106); Lipase 145 U/L (73-393); Potassium 3.7 mmol/L (3.5-5.1); Protein, Total 6.8 g/dL (6.4-8.2); Sodium Level 141 mmol/L (136-145)
[2020-07-25 17:38] LABS: Lactic Acid 0.7 mmol/L (0.4-1.9)
[2020-07-25 18:46] VITALS: BP 128/90
--- NOTE | 2020-07-25 19:59 | ED.DEP ---
ED Disposition - Plan for ED Patient: Instructions: ED Abdominal Pain Unkn Cause Fem Referrals: Warren Samson MD [NON-STAFF] - 3-5 Days
--- NOTE | 2020-07-25 20:00 | ED.DEP ---
ED Disposition - Plan for ED Patient: Instructions: ED Abdominal Pain Unkn Cause Fem Prescriptions: Ondansetron [Zofran Odt] 4 mg PO Q8H PRN PRN #10 tab PRN Reason: Nausea Prescription Printed Referrals: Warren Samson MD [NON-STAFF] - 3-5 Days
[2020-07-25 20:14] VITALS: BP 128/88; PULSE 80; RESP 16
[2020-07-25 20:15] VITALS: BP 128/88; PULSE 80; RESP 16
== END 2020-07-25 20:17 | disposition home or self-care (01) ==
LOC: ED 17:24
PROVIDERS: Emergency Provider Emergency Medicine; PCP Family Medicine
DX: R10.30 Lower abdominal pain, unspecified (principal); R68.83 Chills (without fever); R11.2 Nausea with vomiting, unspecified; K21.9 Gastro-esophageal reflux disease without esophagitis; F32.9 Major depressive disorder, single episode, unspecified; Z86.19 Personal history of other infectious and parasitic diseases; Z90.49 Acquired absence of other specified parts of digestive tract; Z79.899 Other long term (current) drug therapy; Z72.0 Tobacco use
CPT/HCPCS: 74177; 80053; 83605; 83690; 85025; 96361; 96374; 96375; 96376; 99281; 99285; J7030; Q9967; A4216; J2405

== ENCOUNTER 2020-09-17 08:06 | Day surgery (SDC) | payer MEDICAID, SELFPAY ==
[2020-09-17] MEDS: Lidocaine Jelly 2% 20 ML Syringe (URO-JET) 20 APPLIC (08:38)
== END 2020-09-17 09:17 | disposition home or self-care (01) ==
PROVIDERS: Referring Provider Surgery; Visit Provider Surgery
PROC: F00ZJWZ Instrumental Swallowing and Oral Function Assessment using Swallowing Equipment (ICD-10-PCS; CPT 43235; principal; 2020-09-17 08:55)
DX: K21.9 Gastro-esophageal reflux disease without esophagitis (principal)
CPT/HCPCS: 91010; 91013

== ENCOUNTER 2020-09-19 16:32 | Emergency (ER) | payer MEDICAID, SELFPAY ==
[2020-09-19 16:33] VITALS: BP 129/76; PULSE 92; RESP 18; TEMP 36.2; O2SAT 99; BMI 29.1
--- NOTE | 2020-09-19 16:51 | ED.DCSUM_ITS ---
History of Present Illness Informant: Patient Narrative: 50-year-old female with past medical history of GERD, cholecystectomy, appendectomy, partial colon resection from C. difficile, hysterectomy presents with epigastric pain and dysphagia. She states she has had dysphagia for the last month. She has pain in her epigastric region that sometimes goes up the esophagus. She had a swallow study several days ago which was abnormal and she is following up with a GI doctor for some type of surgery. She states yesterday the epigastric pain worsened and she has had difficulty swallowing food. It feels like it gets stuck and moves down very slowly. No choking or difficulty breathing. She has vomited 2-3x in the 24 hours. She went to [facility] last night for these symptoms and had a CT scan of her chest and abdomen and was told she has fluid on her esophagus. They prescribed her Vicodin and sent her home. She states her pharmacy was unable to fill it until Monday and she is here due to persistent pain. She takes PPI and carafate. Denies alcohol use. <Naima Juarez - Last Filed: 09/19/20 17:28> <Vernon Lyon - Last Filed: 09/19/20 18:16> Chief Complaint: Abd Pain Past Medical History Past Medical History: - - GERD Surgical History: noncontributory Smoking Status: Current every day smoker - Family History Maternal Family History: Reports: Diabetes, Heart Disease Paternal Family History: Reports: Cancer - Colon, Diabetes, Heart Disease - Heart attack <Naima Juarez - Last Filed: 09/19/20 17:28> <Vernon Lyon - Last Filed: 09/19/20 18:16> - Allergies and Home Meds Allergies/Adverse Reactions: Allergies codeine Allergy (Verified 07/25/20 16:28) Other meloxicam [From Mobic] Allergy (Verified 07/25/20 16:28) Chest tightness Sulfa (Sulfonamide Antibiotics) Allergy (Verified 07/25/20 16:28) Itching tramadol Allergy (Verified 07/25/20 16:28) SEIZURES morphine Adverse Reaction (Verified 07/25/20 16:28) Other ANXIETY Primary Care Physician: Care Physician,No Primary [Primary Care Provider] - Review of Systems General: Denies: Chills, Fever, Sweats Eyes: Denies: Visual changes - bilaterally, Diplopia ENT: Denies: Rhinorrhea, Sore throat Cardiovascular: Denies: Chest pain, Palpitations Respiratory: Denies: Dyspnea, Cough, Dyspnea on exertion Gastrointestinal: Reports: Abdominal pain, Nausea, Vomiting. Denies: Diarrhea, Constipation, Melena, Hematochezia Genitourinary: Denies: Dysuria, Hematuria, Frequency Musculoskeletal: Denies: Back pain, Extremity Pain Skin: Denies: Rash, Wounds Neurological: Denies: Headache, Weakness, Numbness <Naima Juarez - Last Filed: 09/19/20 17:28> Physical Exam Vital Signs/Narrative: Vital Signs Temp Pulse Resp BP Pulse Ox 09/19/20 16:33 97.1 F L 92 18 129/76 H 99 General: Well nourished, Well developed, No Acute Distress Head: Normocephalic, Atraumatic Eyes: Perrl, EOMI ENT: Moist mucous membranes, No rhinorrhea Neck: Supple, Nontender Cardiovascular: Regular rate, Regular rhythm, No murmurs Respiratory: No distress, CTA bilaterally, Chest nontender Abdomen: Soft, Nondistended, Normal bowel sounds, - - tender in epigastrium, soft with no guarding or rebound Back: Nontender, Normal Inspection. Negative for: CVA tenderness Extremities: Nontender, No edema Skin: Normal color, No rash Neurological: Alert, Oriented x3, Cranial nerves II-XII grossly intact Psychological: Normal affect, Normal Mood <Naima Juarez - Last Filed: 09/19/20 17:28> Vital Signs/Narrative: Vital Signs Temp Pulse Resp BP Pulse Ox 09/19/20 17:41 74 18 105/72 98 09/19/20 16:33 97.1 F L 92 18 129/76 H 99 <Vernon Lyon - Last Filed: 09/19/20 18:16> Diagnostic/Tx/Re-eval Laboratory Data 09/19/20 09/19/20 16:54 16:54 WBC 7.1 RBC 3.96 L Hgb 12.1 Hct 38.0 MCV 96.0 MCH 30.6 MCHC 31.8 L RDW Std Deviation 47.0 H RDW Coeff of Krissy 13.2 Plt Count 214 MPV 9.3 Immature Gran % (Auto) 0.100 Neut % (Auto) 42.4 L Lymph % (Auto) 41.4 H Morgan % (Auto) 10.3 H Eos % (Auto) 5.1 H Baso % (Auto) 0.7 Absolute Neuts (auto) 3.0 Absolute Lymphs (auto) 2.93 Nucleated RBC % 0 Sodium 141 Potassium 4.0 Chloride 109 H Carbon Dioxide 27.0 Anion Gap 5 BUN 15 Creatinine 0.96 Estim Creat Clear Calc 63.09 Est GFR (MDRD) Af Amer 79 Est GFR (MDRD) Non-Af 65 BUN/Creatinine Ratio 15.6 Glucose 84 Calcium 8.7 Total Bilirubin 0.20 AST 14 L ALT 18 Alkaline Phosphatase 79 Total Protein 7.2 Albumin 3.6 Globulin 3.6 Albumin/Globulin Ratio 1.0 Lipase 119 - Medical Decision Making Patient presents with chronic dysphagia and epigastric pain that worsened over the last 2 days with several episodes of vomiting. She appears well nontoxic. Vital signs within normal limits. She has mild epigastric tenderness on exam. Labs are unremarkable. Clinisync records reviewed and she was seen at [facility] last night and had a CT chest and abdomen which showed esophageal inflammation which may be from GERD/stricture. No other acute process. She was given IV morphine and GI cocktail here with some improvement. She is still tolerating PO. She is already taking PPI, Carafate, and Vicodin at home. She needs to follow-up with her GI specialist on Monday for this chronic issue. She was agreeable and discharged home in stable condition. <Naima Juarez - Last Filed: 09/19/20 17:28> - Medical Decision Making Patient has recently been evaluated for the same pain. I was able to review the results and they were unremarkable. She states that she is going to see her GI specialist on Monday. She did have endoscopy a month ago which showed significant esophagitis. Patient was treated with analgesics. Labs were obtained were unremarkable. At this point, I do feel that she is safe for follow-up with her GI doctor. <Vernon Lyon - Last Filed: 09/19/20 18:16> ED Disposition <Naima Juarez - Last Filed: 09/19/20 17:28> <Vernon Lyon - Last Filed: 09/19/20 18:16> - Plan for ED Patient: Disposition: Home or Assisted Living Diagnosis: Abdominal pain, Dysphagia, Esophagitis determined by endoscopy Instructions: Gastroesophageal Reflux Disease (GERD), ED Abdominal Pain Unkn Cause Fem Referrals: Care Physician,No Primary [Primary Care Provider] -
[2020-09-19] MEDS: Ondansetron 4 MG/2 ML Vial IV (17:04)
[2020-09-19] MEDS: 0.9% Normal Saline 1,000 ML 999 ML IV (17:04)
[2020-09-19] MEDS: Morphine 4 MG/ML Syringe IV (17:04)
[2020-09-19 17:09] LABS: Absolute Lymphocyte Count 2.93 X10^3/uL (0.83-4.51); Basophil# 0.05 X10^3/uL; Basophil% 0.7 % (0-1); Eosinophil# 0.36 X10^3/uL; Eosinophils% 5.1 % (0-5); Hemoglobin 12.1 g/dL (12.0-15.0); Lymphocyte # 2.93 X10^3/ul (4.0); Lymphocyte % 41.4 % (19-41); Mean Corp Hgb Conc 31.8 g/dL (32-36); Mean Corpuscular Hgb 30.6 pg (27.0-32.0); Mean Platelet Vol. 9.3 fl (6.2-12.0); Monocyte# 0.73 X10^3/uL; Monocyte% 10.3 % (0-10); NRBC Flagged by Analyzer 0 % (0-5); Neutrophil % 42.4 % (47-70); Platelet Count 214 K/mm3 (150-450); RBC Distribution Width CV 13.2 % (11.6-14.6); Red Blood Count 3.96 M/mm3 (4.2-5.4); White Blood Count 7.1 K/mm3 (4.4-11.0)
[2020-09-19 17:21] LABS: AST(SGOT) 14 U/L (15-37); Alanine Aminotransfer ALT/SGPT 18 U/L (13-56); Albumin, Serum 3.6 g/dL (3.2-5.0); Alkaline Phosphatase 79 U/L (45-117); Anion Gap 5 (5-15); BUN 15 mg/dL (7-18); BUN/Creat Ratio 15.6 RATIO (10-20); Calcium,Total 8.7 mg/dL (8.5-10.1); Chloride 109 mmol/L (98-107); Creatinine, Serum 0.96 mg/dL (0.55-1.02); EST Glomerular Filtration Rate 65 mL/min (>60); Est Glom Filt Rate - Afr Amer 79 mL/min (>60); Estimated Creatinine Clearance 63.09 ml/min; Globulin 3.6 g/dL (2.2-4.2); Glucose 84 mg/dL (74-106); Lipase 119 U/L (73-393); Protein, Total 7.2 g/dL (6.4-8.2); Sodium Level 141 mmol/L (136-145)
[2020-09-19] MEDS: Mag Hydrox/Al Hydrox/Simeth 30 ML UDC PO (17:39)
[2020-09-19 17:41] VITALS: BP 105/72; PULSE 74; RESP 18; O2SAT 98
== END 2020-09-19 17:47 | disposition home or self-care (01) ==
PROVIDERS: Emergency Provider Physician Assistant
DX: K21.00 Gastro-esophageal reflux disease with esophagitis, without bleeding (principal); Z86.19 Personal history of other infectious and parasitic diseases; Z90.49 Acquired absence of other specified parts of digestive tract; F17.200 Nicotine dependence, unspecified, uncomplicated
CPT/HCPCS: 80053; 83690; 85025; 96361; 96374; 96375; 99284; J2405

== ENCOUNTER 2021-08-09 12:13 | Emergency (ER) | payer MEDICAID, SELFPAY ==
[2021-08-09 12:14] VITALS: BP 130/95; PULSE 74; RESP 18; TEMP 36.1; O2SAT 100; BMI 19.1
--- NOTE | 2021-08-09 12:18 | RAD_ITS ---
STUDY: X-RAY - RIGHT HAND REASON FOR EXAM: Dorsal right hand pain, right hand injury. TECHNIQUE: 3 view(s) of the hand. COMPARISON: None. FINDINGS: Normal radiocarpal articulation. Normal distal radioulnar joint. Normal visualized carpal bones. Normal carpal articulations Normal carpometacarpal articulation of the thumb. Normal second through fifth carpometacarpal joints. Normal metacarpi. Normal metacarpophalangeal joint of the thumb. Normal interphalangeal joint of the thumb. Normal proximal and distal phalanges of the thumb. Normal metacarpophalangeal joints of the second through fifth fingers. Normal proximal and distal interphalangeal joints of the second through fifth fingers. Normal phalanges of the second through fifth fingers. The soft tissue structures are unremarkable. RAD/Hand Min 3 Views IMPRESSION: No demonstrated fracture. Electronically Signed: Barak Reeves MD at 12:53 EDT Tel , Service support ,
--- NOTE | 2021-08-09 13:56 | EX.ED.UPPERE ---
HPI History of Present Illness Chief Complaint: Upper Extremity Injury Informant: patient Narrative Narrative: Patient is right-hand dominant complaining of right hand pain. She slipped while putting shelf paper on a shelf this morning. Landed on the counter. Has pain in the right hand. Most of it is in the distal metacarpal area. No other injury. Never hit her head. Pain is worse with motion or palpation is better with rest. No numbness tingling distally. PFSH PFSH Home Medications levothyroxine 100 mcg PO DAILY 10/18/17 [History Last Taken 12/14/18] omeprazole 40 mg PO BID 12/14/18 [History Last Taken 12/14/18] vortioxetine [Trintellix] 10 mg PO DAILY 12/14/18 [History Last Taken 12/14/18] hydroxyzine pamoate 50 mg PO TID PRN PRN 07/10/19 [History Last Taken Unknown] ondansetron 4 mg PO Q8H PRN PRN #7 tab 01/03/20 [Rx Last Taken Unknown] sucralfate 1 gm PO 4X/DAY 09/19/20 [History Last Taken Unknown] Allergy/AdvReac Type Severity Reaction Status Date / Time codeine Allergy Other Verified 08/09/21 13:04 meloxicam [From Mobic] Allergy Chest Verified 08/09/21 13:04 tightness Sulfa (Sulfonamide Allergy Itching Verified 08/09/21 13:04 Antibiotics) tramadol Allergy SEIZURES Verified 08/09/21 13:04 morphine AdvReac Other Verified 08/09/21 13:04 Surgical History colon History of hysterectomy left wrist S/P appendectomy s/p back S/P cholecystectomy Social History Smoking Status: Current every day smoker tobacco type: cigarettes ROS ROS ED Constitutional Constitutional ED: Denies fever(s) Respiratory/Chest Respiratory/Chest: Denies cough or dyspnea Gastrointestinal Gastrointestinal: Denies nausea or vomiting Musculoskeletal Musculoskeletal: Reports other Details: See history of present illness ; Denies back pain or neck pain Integumentary Denies rash Neurologic Neurologic: Denies paresthesias or weakness Hematologic/Lymphatic Hematologic/Lymphatic: Denies easy bleeding or easy bruising EXAM Physical Exam Const Vital Signs: 08/09/21 12:14 Temperature 97 F L Temperature Source Temporal Pulse Rate 74 Respiratory Rate 18 Blood Pressure 130/95 H Blood Pressure Mean 106 Pulse Ox 100 Oxygen Delivery Method Room Air Positive well nourished and well developed General Appearance ED: well developed and NAD HEENT normocephalic Neck full ROM and supple Neck Narrative: No pain with range of motion. General: Negative for tenderness Resp normal respiratory effort and clear to auscultation bilaterally Auscultation: Negative for rales, rhonchi or wheezes Cardio regular rate Extremity Extremity Narrative: Patient does have some mild swelling to the dorsum of her right hand. Most of this is in the distal half of the metacarpals. Involves first through fourth area. No deformity. No erythema. No warmth. No snuffbox or wrist tenderness. She is somewhat sore with finger range of motion but is complete. No numbness tingling distally. Capillary refills are normal. Neuro no sensory deficits noted Sensorium / Orientation: alert Motor Exam: strength 5/5 throughout Skin Lesions: no lesions Rashes: no rashes MDM MDM MDM Narrative Medical decision making narrative: X-rays show no sign of acute fracture. We will give her a dose of pain meds here. She takes Tylenol and Motrin at home which I think are appropriate for this. She should also add ice and elevation. Radiography Diagnostic Testing: Clinical Impression(s) from Imaging Studies Hand X-Ray 08/09/21 12:18 IMPRESSION: No demonstrated fracture. Electronically Signed: Barak Reeves MD at 12:53 EDT Tel , Service support , Discharge Plan Triage Chief Complaint: Upper Extremity Injury ED Provider: Joo Bolanos Dx/Rx/DC Orders Clinical Impression: Fall at home, Contusion of hand, right Instructions: ED Hand Contusion Prescriptions: No Action levothyroxine 75 MCG tablet 100 mcg PO DAILY RF: 0 vortioxetine [Trintellix] 10 MG tablet 10 mg PO DAILY RF: 0 omeprazole 40 Capsule.Dr 40 mg PO BID RF: 0 hydroxyzine pamoate 50 MG capsule 50 mg PO TID PRN PRN (Reason: Anxiety) RF: 0 ondansetron 4 MG tablet 4 mg PO Q8H PRN PRN (Reason: Nausea) Qty: 7 RF: 0 sucralfate 1 GM tablet 1 gm PO 4X/DAY RF: 0 Primary Care Provider: Gerri Gonzales Referrals: Gerri Gonzales MD [Primary Care Provider] - 3-5 Days if not improving Disposition Disposition: Home, Self Care
[2021-08-09] MEDS: oxyCODONE 5 MG Tablet PO (14:53)
== END 2021-08-09 15:00 | disposition home or self-care (01) ==
PROVIDERS: Emergency Provider Emergency Medicine; PCP Student in an Organized Health Care Education/Training Program
DX: S60.221A Contusion of right hand, initial encounter (principal); W01.198A Fall on same level from slipping, tripping and stumbling with subsequent striking against other object, initial encounter; Y93.9 Activity, unspecified; Y92.009 Unspecified place in unspecified non-institutional (private) residence as the place of occurrence of the external cause; F17.210 Nicotine dependence, cigarettes, uncomplicated
CPT/HCPCS: 73130; 99283

== ENCOUNTER 2023-12-16 15:15 | Emergency (ER) | payer MEDICAID, SELFPAY ==
[2023-12-16 15:16] VITALS: BP 102/85; PULSE 109; RESP 18; TEMP 35.6; O2SAT 100; BMI 16.6
--- NOTE | 2023-12-16 15:38 | EDS_ITS ---
<Statement entered by Mervat Dooley MD - 12/16/23 22:04> I have personally performed a face to face assessment of the patient and have reviewed the RADHA Note. Patient presents secondary to lower back pain. Patient reported was knocked down yesterday landing on her buttocks. She has low back pain rating down her right leg. She does have a history of sciatica with similar symptoms. She also reports some urinary frequency. Patient lying in bed, appears uncomfortable but no acute distress. Head and neck examination unremarkable. Heart is regular rate and rhythm. Lung sounds are clear. Abdomen is soft with no focal tenderness. Back examination feels tenderness in the low lumbar midline as well as right paraspinals. Patient initially treated with analgesics and x-ray. Chronic changes noted on x-ray per my interpretation. Given increased pain and now wrapping around her flank IV line is established. She is given further analgesics and lab work obtained along with CT scan of the abdomen pelvis. No significant abnormalities are noted in the spine. No evidence of urinary retention. Patient was observed ambulating to the restroom and back. She be discharged with a short course of analgesics and will follow up with primary care physician. HPI History of Present Illness Chief Complaint: Back Narrative Narrative: Patient is a 53-year-old female with history of anxiety, chronic pain syndrome, presents to the emergency department with complaints of right-sided lower back pain. Patient states yesterday, she was at a client's house when a dog jumped up on top of her, she fell on her right side. Patient dates she had increased pain to her right lower back, right buttock, she is having worsening pain down her right leg and she is here for evaluation. She states that she try to work today however secondary to the pain she was unable to for fill her job title. Patient denies any fever or chills. Patient denies any nausea or vomiting. Denies any saddle paresthesia, bowel or bladder incontinence. [facility] Medical History (Updated 12/16/23 @ 19:27 by ANNCY Díaz) 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 Home Medications levothyroxine 75 mcg tablet 100 mcg PO DAILY 10/18/17 [History Last Taken 12/14/18] omeprazole 40 mg capsule,delayed release 40 mg PO BID GERD 12/14/18 [History Last Taken 12/14/18] vortioxetine 10 mg tablet (Trintellix) 10 mg PO DAILY depression 12/14/18 [History Last Taken 12/14/18] hydroxyzine pamoate 50 mg capsule 50 mg PO TID PRN PRN Anxiety 07/10/19 [History Last Taken Unknown] ondansetron 4 mg disintegrating tablet 4 mg PO Q8H PRN PRN Nausea #7 tabs 01/03/20 [Rx Last Taken Unknown] sucralfate 1 gram tablet 1 gm PO 4X/DAY 09/19/20 [History Last Taken Unknown] nitrofurantoin monohydrate/macrocrystals 100 mg capsule (Macrobid) 100 mg PO Q12H 5 days #10 caps 12/16/23 [Rx Last Taken Unknown] oxycodone-acetaminophen 5 mg-325 mg tablet (Percocet) 1 tab PO Q8H PRN pain 2 days #6 tabs 12/16/23 [Rx Last Taken Unknown] Allergy/AdvReac Type Severity Reaction Status Date / Time codeine Allergy Other Verified 12/16/23 15:16 meloxicam [From Mobic] Allergy Chest Verified 12/16/23 15:16 tightness Sulfa (Sulfonamide Allergy Itching Verified 12/16/23 15:16 Antibiotics) tramadol Allergy SEIZURES Verified 12/16/23 15:16 morphine AdvReac Other Verified 12/16/23 15:16 Surgical History colon History of hysterectomy left wrist S/P appendectomy s/p back S/P cholecystectomy Social History Smoking Status: Current every day smoker tobacco type: cigarettes ROS ROS ED ROS Narrative Constitutional: Negative for fever, chills, weight loss, weakness Eyes: Negative for vision loss, vision change, double vision ENT: Negative for any sore throat, ear pain, congestion Cardiovascular: Negative for any chest pain, tightness, palpitations Respiratory: Negative for any cough, sputum production, hemoptysis, dyspnea, dyspnea on exertion, orthopnea Gastrointestinal: Negative for any abdominal pain, nausea, vomiting, diarrhea, constipation, blood in stool, blood in vomit : Negative for any urinary frequency, dysuria, retention, blood in urine Muscle skeletal: Negative for any neck pain. Positive right-sided lower back pain, right upper buttock pain Neurological: Negative for any headache, syncope, dizziness Skin: Negative for any rashes, itching, abrasions, lacerations Psychiatric: Negative for any depression, anxiety, stress, suicidal ideation, homicidal ideation Hematologic: Negative for any excessive bruising, easy bleeding EXAM Physical Exam Narrative Exam Narrative: Vital signs reviewed. HEET: Head normocephalic atraumatic, TMs clear bilaterally. Posterior pharynx is clear, moist mucous membranes. Nares clear bilaterally. Neck: Supple with no lymphadenopathy or tenderness. No signs of meningismus. Cardiac: Regular rate and rhythm no murmurs gallops or rubs, equal peripheral pulses bilaterally. Respiratory: Lungs clear to auscultation bilaterally. No chest tenderness. Abdomen: Soft, nontender, nondistended. No abdominal bruit or pulsatile masses. No hepatosplenomegaly Extremities: No peripheral edema, no signs of gross trauma or deformity. Active full range of motion of all extremities. Neuro: Cranial nerves II through XII intact, no focal neurological deficits. Skin: Clean dry and intact with no rash, purpura, petechiae, vesicles or pustules. Backs/flank: No CVA tenderness, no midline spinal tenderness, no deformity. Patient's pain is mostly to the paraspinal area on the right side just above the right buttock. There is no ecchymosis, there is no edema, there is no sign of direct trauma. There is no pain midline. Patient is able to flex her right leg. No saddle paresthesia. Psych: Normal mood and affect. No SI, HI or acute psychosis. Const Vital Signs: 12/16/23 15:16 Temperature 96.1 F L Temperature Source Temporal Pulse Rate 109 H Respiratory Rate 18 Blood Pressure 102/85 H Blood Pressure Mean 90 Pulse Ox 100 Oxygen Delivery Method Room Air [facility] Lab Data Labs: Laboratory Results - last 24 hr 12/16/23 12/16/23 15:56 16:45 WBC 5.7 RBC 4.71 Hgb 15.1 H Hct 48.1 H MCV 102.1 H MCH 32.1 H MCHC 31.4 L RDW Std Deviation 51.3 H RDW Coeff of Krissy 13.4 Plt Count 294 MPV 9.3 Immature Gran % (Auto) 0.200 Neut % (Auto) 47.5 Lymph % (Auto) 41.2 H [place] % (Auto) 7.7 Eos % (Auto) 2.3 Baso % (Auto) 1.1 H Absolute Neuts (auto) 2.7 Absolute Lymphs (auto) 2.34 Nucleated RBC % 0 Sodium 140 Potassium 3.6 Chloride 111 H Carbon Dioxide 26.0 Anion Gap 3 L BUN 24 H Creatinine 0.82 Estim Creat Clear Calc 56.81 Est GFR (MDRD) Af Amer 93 Est GFR (MDRD) Non-Af 77 BUN/Creatinine Ratio 29.1 H Glucose 118 H Calcium 9.5 Total Bilirubin 0.40 AST 15 ALT 21 Alkaline Phosphatase 178 H Total Protein 8.1 Albumin 4.0 Globulin 4.1 Albumin/Globulin Ratio 1.0 Lipase 27 Urine Color Yellow Urine Clarity Sl. Cloudy Urine pH 6.0 Ur Specific [place] 1.025 Urine Protein 100 H Urine Glucose (UA) Normal Urine Ketones 5 H Urine Occult Blood 10 H Urine Nitrite Negative Urine Bilirubin 1 H Urine Urobilinogen 1 H Ur Leukocyte Esterase 500 H Urine RBC 0-5 SEEN Urine WBC 0-5 SEEN Ur Squamous Epith Cells 0-5 SEEN Urine Bacteria 1+ Urine Mucus 0 SEEN Radiography Diagnostic Testing: Clinical Impression(s) from Imaging Studies Lumbar Spine X-Ray 12/16/23 15:50 IMPRESSION: Minor scoliosis and degenerative change. No acute fractures. Electronically Signed: Warren Weaver MD at 16:31 EST Reading Location ID and State: [id number] Tel , Service support , Abdomen/Pelvis CT 12/16/23 17:04 IMPRESSION: Findings which may be consistent with nonspecific gastroenteritis however comparison with prior exam demonstrates persistent bile duct dilatation and increasing dilatation of the pancreatic duct since prior exam suggesting possibility of chronic pancreatitis without intraductal stone possibly representing periampullary obstructing lesion MRI/MRCP would be useful for further evaluation if clinically warranted. Electronically Signed: Warren Weaver MD at 19:03 EST , Treatment and Re-Evaluation :: Differential diagnosis includes however is not limited to: Lumbar strain, lumbar contusion, acute on chronic sciatica, lumbar compression fracture, UTI Patient appears to be in mild distress secondary to pain to the right lower back. Patient will be given oral Percocet, IM Norflex. Patient received x-rays of the lower lumbar spine. He is to be interpreted by the ER physician. Patient will be reevaluated. Patient states that the oral Percocet, as well as IV Norflex did not help her pain. Patient's lumbar sacral spine x-ray shows mild scoliosis, degenerative changes. No acute fractures. Patient continued to have pain that radiated from the right side around to the right abdomen. She stated the pain is getting worse. She is here for evaluation. Patient will receive some basic laboratory values as well as CT scan of the abdomen pelvis with IV contrast. Made a little bit patient's urinalysis was positive for infection with 1+ bacteria 500 leukocytes, this was sent for culture. Patient's laboratory values showed normal CBC, patient slightly hemoconcentrated. Chemistries showed an alkaline phosphatase of 178, she does have history of some elevated alkaline phosphatase over 117. Patient's lipase was negative at 27. Patient's x-ray of the lumbar sacral spine was negative for any acute fracture this was interpreted by the ER physician. Patient CT of the abdomen pelvis showed some findings that may be consistent with nonspecific gastroenteritis however comparison with prior examination demonstrates persistent bile duct dilatation and increasing dilation of the pancreatic duct since prior exam suggesting possibly of chronic pancreatitis without intraductal stone possibly representing periampullary obstructing lesion. However patient has no pain to her right upper quadrant all to the right lower quadrant, right back is well as going down her right hip. At this time, patient on reevaluation was feeling much improved. I spoke with the patient at length regarding her results, she will be given a work note for today, she will be started on Percocet she will be given 8 tablets, she will also be given Macrobid twice a day for 5 days. She instructed return for any worsening symptoms. She is happy with the plan of care, all questions answered, patient stable for discharge. Discharge Plan Triage Chief Complaint: Back ED Midlevel Provider: Sam Kendall ED Provider: Mervat Dooley Dx/Rx/DC Orders Clinical Impression: UTI (urinary tract infection), Acute exacerbation of chronic low back pain, Fall Instructions: Urinary Tract Infections in Women, ED Back and Neck Pain, General Prescriptions: New oxycodone-acetaminophen [Percocet] 5-325 mg tablet 1 tab PO Q8H PRN (Reason: pain) 2 Days Qty: 6 0RF nitrofurantoin monohyd/m-cryst [Macrobid] 100 mg capsule 100 mg PO Q12H 5 Days Qty: 10 0RF Rx Instructions: must administer with a meal/food No Action levothyroxine 75 MCG tablet 100 mcg PO DAILY vortioxetine [Trintellix] 10 MG tablet 10 mg PO DAILY Patient Comments: TAKE ONE TABLET BY MOUTH EVERY DAY omeprazole 40 capsule,delayed release(DR/EC) 40 mg PO BID hydroxyzine pamoate 50 MG capsule 50 mg PO TID PRN PRN (Reason: Anxiety) ondansetron 4 MG tablet 4 mg PO Q8H PRN PRN (Reason: Nausea) Qty: 7 0RF sucralfate 1 GM tablet 1 gm PO 4X/DAY Primary Care Provider: Gerri Gonzales Referrals: Gerri Gonzales MD [Primary Care Provider] - Activity Restrictions/Additional Instructions: Please follow-up outpatient. Return for worsening back pain, abdominal pain, nausea or vomiting. Disposition Disposition: Home, Self Care
[2023-12-16] MEDS: Oxycodone/Apap 5/325 Tablet PO ×2 (15:46→19:40)
[2023-12-16] MEDS: Orphenadrine 60 MG/2 ML Ampul IM (15:46)
--- NOTE | 2023-12-16 15:50 | RAD_ITS ---
STUDY: X-RAY - LUMBAR SPINE REASON FOR EXAM: Female, 53 years old. fall TECHNIQUE: AP and lateral view(s) of the lumbar spine were obtained. COMPARISON: None FINDINGS: Normal lumbar lordosis. Minor dextroscoliosis or splinting secondary to muscle spasm. Grade 1 spondylolisthesis at L5-S1 Postop change status post bilateral laminectomy and posterior fusion at L5-S1 No evidence for acute fracture or subluxation. Narrowed L3-4, L4-5 and L5-S1 disc spaces with minor endplate spurring Surgical clips are seen within the right mid abdomen. RAD/Lumbar Spine 2 or 3 Views IMPRESSION: Minor scoliosis and degenerative change. No acute fractures. Electronically Signed: Warren Weaver MD at 16:31 EST ,
[2023-12-16 16:03] LABS: Color, Urine Yellow (Yellow); Glucose, Dipstick Normal (Normal); Ketone-Dipstick 5 mg/dl (Negative); Leukocyte Esterase-Dipstick 500 /ul (Negative); Mucous, Urine 0 SEEN /hpf (<or=2+); Nitrite-Dipstick Negative (Negative); Occult Blood-Urine 10 /ul (Negative); Protein-Dipstick 100 mg/dl (Negative); Specific Gravity, Urine 1.025 (1.002-1.030); Urine Clarity Sl. Cloudy (Clear); Urine Urobilinogen 1 mg/dl (Normal)
[2023-12-16 16:06] LABS: Urine Bilirubin Dipstick 1 mg/dL (Negative)
[2023-12-16 16:19] LABS: Bacteria 1+ /hpf (None Seen); Red Blood Cells-Urine 0-5 SEEN /hpf (0-5); Squamous Epithelial Cells - UA 0-5 SEEN /hpf (5-10); White Blood Cells 0-5 SEEN /hpf (0-5)
[2023-12-16] MEDS: HYDROmorphone 0.5 MG/0.5 ML SYRINGE IV (16:35)
[2023-12-16] MEDS: Ondansetron 4 MG/2 ML Vial IV (16:35)
[2023-12-16] MEDS: 0.9% Normal Saline (1000mL) 1,000 ML 1000 ML IV (16:44)
[2023-12-16 17:00] LABS: Absolute Lymphocyte Count 2.34 X10^3/uL (0.83-4.51); Absolute Neutrophil Count 2.7 X10^3/uL (2.0-7.7); Basophil# 0.06 X10^3/uL; Basophil% 1.1 % (0-1); Eosinophil# 0.13 X10^3/uL; Eosinophils% 2.3 % (0-5); Hematocrit 48.1 % (37-47); Hemoglobin 15.1 g/dL (12.0-15.0); Lymphocyte # 2.34 X10^3/ul (0.83-4.51); Lymphocyte % 41.2 % (19-41); Mean Corp Hgb Conc 31.4 g/dL (32-36); Mean Corpuscular Hgb 32.1 pg (27.0-32.0); Mean Corpuscular Volume 102.1 fL (81-99); Mean Platelet Vol. 9.3 fl (6.2-12.0); Monocyte# 0.44 X10^3/uL; Monocyte% 7.7 % (0-10); NRBC Flagged by Analyzer 0 % (0-5); Neutrophil % 47.5 % (47-70); Platelet Count 294 K/mm3 (150-450); RBC Distribution Width CV 13.4 % (11.6-14.6); RBC Distribution Width SD 51.3 fl (35.1-43.9); Red Blood Count 4.71 M/mm3 (4.2-5.4); White Blood Count 5.7 K/mm3 (4.4-11.0)
--- OUTSIDE RECORDS SUMMARY | 2023-12-16 17:00 | XMS RPT_ITS | CCD ---
Author Name Unknown Address [address] [place] [address] Organization [facility] Care Team Providers Care Dive Superintendent Name Role Phone Naye Winters Unavailable Naye Winters Unavailable ANGIE TORRES Unavailable Unavailable ANGIE TORRES Unavailable Unavailable FADIA PANDA Referring Unavailable IDANIA KELLEY Admitting Unavailab KARLA Flores Attending Unavailable DAVID MANDEL Primary Care Provider MATTHEW HERNANDEZ Emergency Provider SHAJI CHAMBERLAIN Primary Care Provider IVORY OLIVA Other Provider JUAN JOSÉ GONZALEZ Admit Provider JUAN JOSÉ GONZALEZ Attending Provider [phone] W[address] SHIN Primary Care Provider [phone] FADIA PANDA Emergency Provider No, Physician Primary Care Provider Unavailabl e Sam Cortez Primary Care Provider Warren Shin MD Primary Care Provider Warren Shin MD Primary Care Provider HI HA Referring Unavailable KIP, WARREN A Primary Care Unavailable HELENA LÓPEZ Attending Unavailable KIP, WARREN A Referring Unavailable KIP, WARREN A Primary Care Unavailable LAVONNE MEHTA MD Referring Unavailable CSERNYIK, BINTA DO Admitting Unavailable CSERNYIK, BINTA DO Primary Care Unavailable JUANA, BINTA DO Attending Unavailable LAVONNE MEHTA MD Consulting Unavailable PROVIDER, UNKNOWN Consulting Unavailable PROVIDER, UNKNOWN Consulting Unavailable LAVONNE MEHTA MD Referring Unavailable PATSY ELLIS MD Primary Care Unavailable PTASY ELLIS MD Attending Unavailable PATSY ELLIS MD Admitting Unavailable LAVONNE MEHTA MD Consulting Unavailable PROVIDER, UNKNOWN Consulting Unavailable PROVIDER, UNKNOWN Consulting Unavailable LUCIE CASEY Attending Unavailable LUCIE CASEY Primary Care Unavailable LUCIE CASEY Admitting Unavailable LAVONNE MEHTA MD Consulting Unavailable LAVONNE MEHTA MD Referring Unavailable PROVIDER, UNKNOWN Consulting Unavailable PROVIDER, UNKNOWN Consulting Unavailable MILLICENT SIMPSON DO Attending Unavailable MILLICENT SIMPSON DO Primary Care Unavailable MILLICENT SIMPSON DO Admitting Unavailable LAVONNE MEHTA MD Referring Unavailable LAVONNE MEHTA MD Consulting Unavailable PROVIDER, UNKNOWN Consulting Unavailable PROVIDER, UNKNOWN Consulting Unavailable LAVONNE MEHTA MD Consulting Unavailable LAURA RIGGS Admitting Unavailable LAURA RIGGS Primary Care Unavailable LAURA RIGGS Attending Unavailable LAVONNE MEHTA MD Referring Unavailable PROVIDER, UNKNOWN Consulting Unavailable PROVIDER, UNKNOWN Consulting Unavailable LAVONNE MEHTA MD Primary Care Unavailable LAVONNE MEHTA MD Admitting Unavailable LAVONNE MEHTA MD Attending Unavailable LAVONNE MEHTA MD Consulting Unavailable PROVIDER, UNKNOWN Consulting Unavailable PROVIDER, UNKNOWN Consulting Unavailable LAVONNE MEHTA MD Primary Care Unavailable LAVONNE MEHTA MD Admitting Unavailable LAVONNE MEHTA MD Attending Unavailable LAVONNE MEHTA MD Consulting Unavailable PROVIDER, UNKNOWN Consulting Unavailable PROVIDER, UNKNOWN Consulting Unavailable IVORY OLIVA Attending Unavailable IVORY OLIVA Primary Care Unavailable IVORY OLIVA Admitting Unavailable LAVONNE MEHTA MD Consulting Unavailable PROVIDER, UNKNOWN Consulting Unavailable PROVIDER, UNKNOWN Consulting Unavailable LAVONNE MEHTA MD Primary Care Unavailable LAVONNE MEHTA MD Admitting Unavailable LAVONNE MEHTA MD Attending Unavailable LAVONNE MEHTA MD Consulting Unavailable PROVIDER, UNKNOWN Consulting Unavailable PROVIDER, UNKNOWN Consulting Unavailable LAVONNE MEHTA MD Referring Unavailable DONTE HARRIS MD Admitting Unavailable DONTE HARRIS MD Primary Care Unavailable DONTE HARRIS MD Attending Unavailable LAVONNE MEHTA MD Consulting Unavailable PROVIDER, UNKNOWN Consulting Unavailable PROVIDER, UNKNOWN Consulting Unavailable VERÓNICA JEFFREY MD Attending Unavailable VERÓNICA JEFFREY MD Primary Care Unavailable VERÓNICA JEFFREY MD Admitting Unavailable LAVONNE MEHTA MD Consulting Unavailable LAVONNE MEHTA MD Referring Unavailable PROVIDER, UNKNOWN Consulting Unavailable PROVIDER, UNKNOWN Consulting Unavailable LAVONNE MEHTA MD Consulting Unavailable LAURA RIGGS Admitting Unavailable LAURA RIGGS Primary Care Unavailable LAURA RIGGS Attending Unavailable LAVONNE MEHTA MD Referring Unavailable PROVIDER, UNKNOWN Consulting Unavailable PROVIDER, UNKNOWN Consulting Unavailable ALYCE SCOTT Attending Unavail able [facility] Primary Care Unavail able [facility] Admitting Unavail able LAVONNE MEHTA MD Referring Unavailable LAVONNE MEHTA MD Consulting Unavailable PROVIDER, UNKNOWN Consulting Unavailable PROVIDER, UNKNOWN Consulting Unavailable MILLICENT SIMPSON DO Attending Unavailable MILLICENT SIMPSON DO Primary Care Unavailable MILLICENT SIMPSON DO Admitting Unavailable LAVONNE MEHTA MD Referring Unavailable LAVONNE MEHTA MD Consulting Unavailable PROVIDER, UNKNOWN Consulting Unavailable PROVIDER, UNKNOWN Consulting Unavailable KRISTINA BROOKS Primary Care Unavailable KRISTINA BROOKS Admitting Unavailable KRISTINA BROOKS Attending Unavailable LAVONNE MEHTA MD Referring Unavailable LAVONNE MEHTA MD Consulting Unavailable PROVIDER, UNKNOWN Consulting Unavailable PROVIDER, UNKNOWN Consulting Unavailable Unavailable Unavailable Unavailable Allergies Allergy Classification Reported Allergen(s) Allergy Type Date of Onset Reaction(s) Facility (8 sources) codeine; Translations: [CODEINE] Drug Allergy 10-31-19 09 Palpitations, Shortness of Breath [facility] Repository (4 sources) meloxicam; Translations: [MELOXICAM] Drug Allergy 12-14-19 18 Vomiting [facility] Repository (4 sources) naproxen; Translations: [NAPROXEN] Drug Allergy 12-14-19 18 GI Upset [facility] Repository (4 sources) sulfamethoxazole / trimethoprim; Translations: [SULFAMETHOXAZOLE-T RIMETHOPRIM] Drug Allergy 01-23-20 07 Hives, Shortness of Breath [facility] Repository (7 sources) Sulfonamides (Antibiotic); Translations: [SULFA (SULFONAMIDE ANTIBIOTICS)] Propensity to adverse reactions to drug (disorder) 11-25-19 09 Itching [facility] Repository (4 sources) traMADol; Translations: [TRAMADOL] Drug Allergy 12-21-19 18 Intolerance [facility] Repository (3 sources) traMADol; Translations: [TRAMADOL HCL] Drug Allergy 01-23-20 07 GI Upset [facility] Repository (2 sources) OTHER; Translations: [OTHER] Propensity to adverse reactions (disorder) 01-23-20 07 AOF [facility] Repository (4 sources) AMOXICILLIN-POT CLAVULANATE; Translations: [AMOXICILLIN-POT CLAVULANATE] Propensity to adverse reactions to drug (disorder) 01-23-20 GI Upset, Itching [facility] Repository (2 sources) traMADol Drug Allergy 08-11-20 [facility] Work Phone: (1 source) Sulfonamides (Antibiotic) Propensity to adverse reactions to drug 07-02-20 17 Itching [place], [place] (1 source) tordol [Other] Propensity to adverse reactions 01-23-20 07 Vomiting [facility] Work Phone: (1 source) NITROFURANTOIN, MACROCRYSTALS / Nitrofurantoin, Monohydrate Drug Allergy 09-12-20 22 Shortness of Breath [facility] (2 sources) Ketorolac Drug Allergy [facility] Repository (3 sources) Sulfonamides (Antibiotic) Drug allergy (disorder) [facility] Repository (1 source) 06/17/18 (-) MRSA SCREEN; Translations: [06/17/18 (-) MRSA SCREEN] Propensity to adverse reactions (disorder) [facility] Repository (1 source) [id number] (+) CDIFF AG; Translations: [[id number] (+) CDIFF AG] Propensity to adverse reactions (disorder) [facility] Repository Medications Current Medications Medication Drug Class(es) Dates Sig (Normalized) Sig (Original) ciprofloxacin 500 mg oral tablet (3 sources) Quinolone Antimicrobial Start: 07-22-2020 End: 07-29-2020 take 1 tablet by mouth twice daily ciprofloxacin HCl (CIPRO) 500 MG tablet Take 1 (one) tablet (500 mg total) by mouth 2 (two) times a day for 7 days . 14 tablet 0 07/22/2020 07/29/2020 Active Completed/Discontinued Medications Medication Drug Class(es) Dates Sig (Normalized) Sig (Original) acetaminophen 325 mg oral tablet (4 sources) Start: 07-21-2020 End: 07-22-2020 take 1 tablet by mouth every four hours as needed 650 mg, Oral, Every 4 hours PRN, mild pain, fever 100.4 F or greater, headaches, Starting Mon07/21/20 at 0255 Problems Active Problems Problem Classification Problem Date Documented Da te Episodic/Chronic Abdominal pain (3 sources) Intractable abdominal pain; Translations: [Intractable abdominal pain] Onset: 07-21-2020 07-21-2020 Anxiety disorders (1 source) Anxiety disorder, unspecified; Translations: [Anxiety disorder, unspecified] Onset: 06-22-2023 Chronic Biliary tract disease (2 sources) Cholangiectasis; Translations: [Other specified diseases of biliary tract] Onset: 2014 12-04-2014 Chronic Chronic obstructive pulmonary disease and bronchiectasis (1 source) Chronic obstructive pulmonary disease, unspecified; Translations: [Chronic obstructive pulmonary disease, unspecified] Onset: 06-22-2023 Chronic Disorders of lipid metabolism (1 source) Hyperlipidemia, unspecified; Translations: [Hyperlipidemia, unspecified] Onset: 06-22-2023 Chronic Essential hypertension (3 sources) Benign essential hypertension; Translations: [Essential (primary) hypertension] Onset: 06-22-2023 12-04-2014 Chronic Infective arthritis and osteomyelitis (except that caused by tuberculosis or sexually transmitted disease) (1 source) Osteomyelitis of left ankle; Translations: [Acute hematogenous osteomyelitis, left ankle and foot] Chronic Intestinal obstruction without hernia (2 sources) Intestinal obstruction; Translations: [Intestinal obstruction] Episodic Menstrual disorders (2 sources) Dysmenorrhea; Translations: [Dysmenorrhea, unspecified] Onset: 05-07-2010 12-04-2014 Chronic Mood disorders (4 sources) Major depression, single episode; Translations: [Major depressive disorder, single episode, unspecified] Onset: 11-20-2019 12-04-2014 Chronic Mood disorders (1 source) Mood disorders; Translations: [Depression, unspecified] Onset: 06-22-2023 Nutritional deficiencies (1 source) Unspecified protein-calorie malnutrition; Translations: [Unspecified protein-calorie malnutrition] Onset: 06-22-2023 Chronic Other circulatory disease (1 source) Abnormal peripheral pulse; Translations: [Other specified symptoms and signs involving the circulatory and respiratory systems] Episodic Other congenital anomalies (1 source) Porokeratosis; Translations: [Other specified congenital malformations of skin] Chronic Other connective tissue disease (1 source) Pain in left foot; Translations: [Pain in left foot] Episodic Other connective tissue disease (1 source) Other muscle spasm; Translations: [Other muscle spasm] Onset: 08-03-2023 Episodic Other connective tissue disease (3 sources) Pain in right hand; Translations: [Pain in right hand] Onset: 07-31-2023 Episodic Other female genital disorders (2 sources) Abnormal uterine bleeding; Translations: [Abnormal uterine and vaginal bleeding, unspecified] Onset: 2014 12-04-2014 Chronic Other gastrointestinal disorders (1 source) Gastrostomy status; Translations: [Gastrostomy status] Onset: 02-06-2023 Chronic Other gastrointestinal disorders (2 sources) Diarrhea, unspecified; Translations: [Nausea, vomiting, and diarrhea] Episodic Other gastrointestinal disorders (2 sources) Diarrhea; Translations: [Diarrhea] Episodic Other infections; including parasitic (2 sources) Personal history of other infectious and parasitic diseases; Translations: [History of viral infection] Episodic Other infections; including parasitic (2 sources) H/O: infectious disease; Translations: [History of Clostridioides difficile infection] Episodic Other inflammatory condition of skin (2 sources) Psoriasis; Translations: [Other psoriasis] 12-04-2014 Chronic Other nervous system disorders (2 sources) Carpal tunnel syndrome; Translations: [Carpal tunnel syndrome, left upper limb] Onset: 08-04-2016 08-04-2016 Chronic Other nervous system disorders (2 sources) Chronic pain syndrome; Translations: [Chronic pain syndrome] Onset: 01-20-2016 01-20-2016 Chronic Other nervous system disorders (1 source) Other chronic pain; Translations: [Other chronic pain] Onset: 06-22-2023 Chronic Other non-traumatic joint disorders (2 sources) Arthropathy; 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] Chronic Other non-traumatic joint disorders (3 sources) Pain in wrist; Translations: [Pain in left wrist] Onset: 07-11-2016 07-11-2016 Episodic Other non-traumatic joint disorders (2 sources) Shoulder pain; Translations: [Right shoulder pain] Episodic Other nutritional; endocrine; and metabolic disorders (2 sources) Overweight; Translations: [Overweight] 12-04-2014 Episodic Other screening for suspected conditions (not mental disorders or infectious disease) (1 source) Patient encounter status; Translations: [Encounter for screening mammogram for malignant neoplasm of breast] Episodic Residual codes; unclassified (1 source) Procedure and treatment not carried out because of patient's decision for other reasons; Translations: [Procedure and treatment not carried out because of patient's decision for other reasons] Onset: 07-31-2023 Episodic Schizophrenia and other psychotic disorders (1 source) Psychotic disorder; Translations: [Psychosis] 07-22-2017 Chronic Spondylosis; intervertebral disc disorders; other back problems (2 sources) Post-laminectomy syndrome; Translations: [Postlaminectomy syndrome, not elsewhere classified] Onset: 01-20-2016 01-20-2016 Chronic Substance-related disorders (6 sources) Smoker; Translations: [Nicotine dependence, unspecified, uncomplicated] Onset: 01-09-2015 10-04-2021 Chronic Thyroid disorders (4 sources) Acquired hypothyroidism; Translations: [Hypothyroidism, unspecified] Onset: 06-22-2023 10-22-2015 Chronic Unclassified (1 source) Low back pain, unspecified; Translations: [Low back pain, unspecified] Onset: 01-14-2023 Urinary tract infections (2 sources) Urinary tract infectious disease; Translations: [Urinary tract infection] Episodic Past or Other Problems Problem Classification Problem Date Documented Da te Episodic/Chronic Abdominal pain (6 sources) Abdominal pain; Translations: [Unspecified abdominal pain] Onset: 06-22-2023 Episodic Acute posthemorrhagic anemia (2 sources) Acute posthemorrhagic anemia; Translations: [Acute posthemorrhagic anemia] Onset: 11-13-2015 11-13-2015 Episodic Allergic reactions (3 sources) Allergy status to sulfonamides status; Translations: [Allergy status to other drugs, medicaments and biological substances status] Onset: 02-06-2023 Episodic Calculus of urinary tract (4 sources) Unspecified renal colic; Translations: [Calculus of ureter] Onset: 02-13-2023 Episodic Complication of device; implant or graft (3 sources) Pain due to internal orthopedic prosthetic devices, implants and grafts, initial encounter; Translations: [Pain] Onset: 02-22-2018 02-22-2018 Episodic Diseases of mouth; excluding dental (3 sources) Other lesions of oral mucosa; Translations: [Other lesions of oral mucosa] Onset: 02-06-2023 Episodic Fluid and electrolyte disorders (5 sources) Dehydration; Translations: [Dehydration] Onset: 06-22-2023 Episodic Genitourinary symptoms and ill-defined conditions (4 sources) History of acute renal failure; Translations: [Personal history of other diseases of urinary system] Onset: 01-13-2015 10-04-2021 Episodic Intestinal obstruction without hernia (2 sources) Unspecified intestinal obstruction, unspecified as to partial versus complete obstruction; Translations: [Diverticular stricture] Noninfectious gastroenteritis (1 source) Noninfective gastroenteritis and colitis, unspecified; Translations: [Noninfective gastroenteritis and colitis, unspecified] Onset: 06-22-2023 Episodic Other aftercare (2 sources) Encounter for other specified surgical aftercare; Translations: [Encounter for other specified surgical aftercare] Onset: 08-23-2016 08-23-2016 Episodic Other bone disease and musculoskeletal deformities (4 sources) Nonunion of fracture; Translations: [Fracture malunion] Onset: 07-11-2016 08-04-2016 Episodic Other connective tissue disease (2 sources) O/E - snuff box tenderness; Translations: [Pain in unspecified wrist] Onset: 08-04-2016 08-04-2016 Episodic Other gastrointestinal disorders (2 sources) Incontinence of feces; Translations: [Full incontinence of feces] Onset: 11-24-2015 11-24-2015 Episodic Other gastrointestinal disorders (1 source) Bariatric surgery status; Translations: [Bariatric surgery status] Onset: 06-22-2023 Episodic Other lower respiratory disease (2 sources) Cyanosis; Translations: [Cyanosis] Onset: 01-09-2015 01-09-2015 Episodic Other nervous system disorders (2 sources) Numbness and tingling sensation of skin; Translations: [Anesthesia of skin] Onset: 11-24-2015 11-24-2015 Episodic Other nervous system disorders (2 sources) Finding of sensation of lower limb; Translations: [Unspecified disturbances of skin sensation] Onset: 11-24-2015 11-24-2015 Episodic Other non-traumatic joint disorders (2 sources) Pain of left wrist; Translations: [Pain in left wrist] Onset: 02-22-2018 02-22-2018 Episodic Other nutritional; endocrine; and metabolic disorders (1 source) Body mass index (BMI) 19.9 or less, adult; Translations: [Body mass index [BMI] 19.9 or less, adult] Onset: 06-22-2023 Episodic Ovarian cyst (2 sources) Complex ovarian cyst; Translations: [Other ovarian cyst, unspecified side] Onset: 2014 12-04-2014 Episodic Residual codes; unclassified (2 sources) Altered mental status; Translations: [Altered mental status] Onset: 08-30-2019 08-30-2019 Episodic Residual codes; unclassified (2 sources) Abnormal cytology findings; Translations: [ASCUS favoring benign] Onset: 05-29-2014 10-04-2021 Episodic Residual codes; unclassified (2 sources) History of total colectomy; Translations: [Acquired absence of other specified parts of digestive tract] Onset: 11-13-2015 11-13-2015 Episodic Residual codes; unclassified (1 source) Acquired absence of other specified parts of digestive tract; Translations: [Acquired absence of other specified parts of digestive tract] Onset: 02-06-2023 Episodic Spondylosis; intervertebral disc disorders; other back problems (7 sources) Radicular pain; Translations: [Radiculopathy, site unspecified] Onset: 11-24-2015 11-24-2015 Episodic Substance-related disorders (2 sources) Continuous opioid dependence; Translations: [Opioid use, unspecified, uncomplicated] Onset: 01-20-2016 01-20-2016 Episodic Unclassified (1 source) Low back pain, unspecified; Translations: [Low back pain, unspecified] Onset: 01-14-2023 Results Test Name Value Interpretation Reference Range Facil ity Vital Signs Date Time Vital Sign Value Performing Clinician Sameer arias 08-14-2020 17:53-0500 Pulse Oximetry 97 % [facility] Work Phone: 08-14-2020 14:25-0500 BP Diastolic 79 mm[Hg] WARREN SHIN [facility] Work Phone: 08-14-2020 14:25-0500 BP Systolic 127 mm[Hg] WARREN SHIN [facility] Work Phone: 08-14-2020 14:25-0500 Pulse (Heart Rate) 93 /min [facility] Work Phone: 08-14-2020 14:25-0500 Respiratory Rate 16 /min [facility] Work Phone: 08-14-2020 14:13-0500 Body Temperature 97 [degF] [facility] Work Phone: 08-14-2020 06:30-0500 Body weight 79.83 kg [facility] Work Phone: 08-11-2020 19:23-0500 Height 165.1 cm [facility] Work Phone: 07-29-2020 20:25-0400 BP Diastolic 80 mm[Hg] [facility] Work Phone: 07-29-2020 20:25-0400 BP Systolic 118 mm[Hg] [facility] Work Phone: 07-29-2020 20:25-0400 Pulse (Heart Rate) 84 /min [facility] Work Phone: 07-29-2020 20:25-0400 Pulse Oximetry 98 % [facility] Work Phone: 07-29-2020 20:25-0400 Respiratory Rate 16 /min WARREN DAVIESEY [facility] Work Phone: 07-29-2020 18:13-0400 Body Temperature 98.7 [degF] WARREN KIP [facility] Work Phone: 07-29-2020 18:13-0400 Body weight 74.84 kg WARREN Mas [facility] Work Phone: 07-22-2020 14:54-0400 Body Temperature 98.2 [degF] Generic [facility] 07-22-2020 14:54-0400 BP Diastolic 66 mm[Hg] Generic [facility] 07-22-2020 14:54-0400 BP Systolic 103 mm[Hg] Generic [facility] 07-22-2020 14:54-0400 Pulse (Heart Rate) 91 /min Generic [facility] 07-22-2020 14:54-0400 Pulse Oximetry 96 % Generic [facility] 07-22-2020 14:54-0400 Respiratory Rate 14 /min Generic [facility] 07-21-2020 08:13-0400 BMI (Body Mass Index) 30.79 kg/m2 [facility] 07-21-2020 08:13-0400 Body weight 83.92 kg Generic [facility] 07-21-2020 08:13-0400 Height 165.1 cm Generic [facility] 07-21-2020 01:29-0400 BP Diastolic 68 mm[Hg] WARREN Mas [facility] Work Phone: 07-21-2020 01:29-0400 BP Systolic 104 mm[Hg] W[facility] Work Phone: 07-21-2020 01:29-0400 Pulse (Heart Rate) 88 /min WARREN Mas [facility] Work Phone: 07-21-2020 01:29-0400 Pulse Oximetry 99 % WARREN Mas [facility] Work Phone: 07-21-2020 01:29-0400 Respiratory Rate 10 /min [facility] Work Phone: 07-20-2020 23:25-0400 Body Temperature 97.3 [degF] WARREN [facility] Work Phone: 07-20-2020 15:36-0400 Body weight 83.92 kg WARREN SHIN [facility] Work Phone: 09-02-2019 16:16-0500 Body Temperature 96.91 [degF] [place], [place] 09-02-2019 16:16-0500 BP Diastolic 83 mm[Hg] [place] 09-02-2019 16:16-0500 BP Systolic 122 mm[Hg] [place] 09-02-2019 16:16-0500 Pulse (Heart Rate) 81 /min [place] 09-02-2019 16:16-0500 Pulse Oximetry 95 % [place] 09-02-2019 16:16-0500 Respiratory Rate 18 /min [place] 07-11-2016 09:50-0400 BMI (Body Mass Index) 24.63 kg/m2 [facility] Work Phone: 07-11-2016 09:50-0400 Height 165.1 cm [facility] Work Phone: 07-11-2016 09:50-0400 Weight 67.13 kg [facility] Work Phone: Encounters Encounter Date Encounter Type Care Provider Facility Start: 10-25-2023 End: 10-25-2023 ambulatory LAVONNE MD KALISETTI [facility] Start: 09-01-2023 End: 09-01-2023 [facility] 08-03-[facility]23 ambulatory LAVONNE HUTCHINS [facility] Start: 08-03-2023 End: 08-03-2023 Emergency department patient visit MILLICENT ADRIAN [facility] Start: 07-31-2023 End: 07-31-2023 Emergency department [facility] Start: 06-28-2023 End: 06-28-2023 Emergency department patient visit MILLICENT ADRIAN [facility] Start: 06-22-2023 End: 06-25-2023 ambulatory LAVONNE HUTCHINS [facility] Start: 04-18-2023 End: 04-18-2023 Emergency department patient visit YEIMIJORGEESPERANZA SCOTT [facility] Start: 02-22-2023 End: 02-22-2023 Emergency department patient visit KRISTINA BROOKS [facility] Start: 02-13-2023 End: 02-13-2023 Emergency department patient visit LUCIE CASEY [facility] Start: 02-06-2023 End: 02-06-2023 Emergency department patient visit LAVONNE HUTCHINS [facility] Start: 01-14-2023 End: 01-14-2023 Emergency department patient visit VERÓNICA JEFFREY [facility] Start: 12-20-2022 End: 12-20-2022 ambulatory IVORY [facility] Start: 12-20-2022 End: 12-20-2022 Encounter for general adult medical examination without abnormal findings IVORY [facility] Start: 12-08-2022 End: 12-08-2022 Emergency department [facility] Start: 09-12-2022 End: 09-12-2022 ambulatory HELENA LÓPEZ Facility:[facility] Start: 09-12-2022 End: 09-12-2022 Patient encounter procedure Helena López Work Phone: Podiatry Procedures Date Procedure Procedure Detail Performing Clinician Start: 06-22-2023 Urinalysis LAVONNE BAUER Plan of Treatment Date Care Activity Detail Author Start: 04-12-2025 DIABETES SCREEN DIABETES SCREEN [facility] Start: 09-12-2023 LIPID SCREEN LIPID SCREEN [facility] Start: 06-09-2022 Influenza vaccination INFLUENZA (#1) [facility] Start: 03-09-2022 DIABETES SCREEN DIABETES SCREEN [facility] Start: 2020 SHINGRIX VACCINE (1 of 2) SHINGRIX VACCINE (1 of 2) [facility] Start: 04-26-2020 ANNUAL PCP TEAM CHRONIC DISEASE VISIT ANNUAL PCP TEAM CHRONIC DISEASE VISIT [facility] Start: 06-09-2019 Influenza vaccination Flu vaccine (#1) [place], [place] Start: 2019 HPV TESTING HPV TESTING [facility] Start: 2019 PAP TESTING PAP TESTING [facility] Start: 02-07-2017 End: 02-07-2017 Ct upper extremity w/o dye CT Upper Extremity [facility] Work Phone: Start: 02-07-2017 End: 02-07-2017 X-ray exam of hand X-Ray, Hand [facility] Work Phone: Start: 08-24-2016 End: 08-24-2016 Occupational Therapy General Occupational Therapy General Rehab [facility], [address] [place] [address], [id number] [facility] Work Phone: Start: 08-23-2016 End: 08-23-2016 X-ray exam of wrist X-Ray, Wrist [facility] Work Phone: Start: 08-04-2016 End: 08-04-2016 X-ray exam of wrist X-Ray, Wrist [facility] Work Phone: Start: 07-11-2016 End: 07-11-2016 Ct upper extremity w/o dye CT Upper Extremity [facility] Work Phone: Start: 07-11-2016 End: 07-11-2016 X-ray exam of wrist X-Ray, Wrist [facility] Work Phone: Start: 2015 COLOGUARD (FIT-DNA) COLOGUARD (FIT-DNA) [facility] Start: 2015 Colonoscopy COLONOSCOPY [facility] Start: 2015 COLORECTAL CANCER SCREENING COLORECTAL CANCER SCREENING [facility] Start: [address] COLONOGRAPHY [facility] Start: 2015 FECAL OCCULT BLOOD FECAL OCCULT BLOOD [facility] Start: 2015 SIGMOIDOSCOPY SIGMOIDOSCOPY [facility] Start: 2010 Mammography MAMMOGRAM [facility] Start: 1989 Urine microalbumin profile DTAP,TDAP,TD (1 - Tdap) [facility] Start: 1988 BP CONTROLLED (<130/80) BP CONTROLLED (<130/80) [facility] Start: 1976 PNEUMOCOCCAL (1 - PCV) PNEUMOCOCCAL (1 - PCV) [facility] Start: 1970 COVID-19 VACCINE (#1) COVID-19 VACCINE (#1) [facility] Start: 1970 HEPATITIS B (1 of 3 - 3-dose series) HEPATITIS B (1 of 3 - 3-dose series) [facility] End: 07-21-2020 Gastrointestinal pathogens DNA and RNA panel - Stool by VERO with non-probe detection Stool/GI PCR Panel Microbiology Routine Once for 1 Occurrences starting 07/21/2020 until 07/21/2020 [facility] Payers Date Payer Category Payer Unknown [facility] xxxxxxxxxxx 2017-Present [phone] CLAIMS DEPARTMENT [address] [place] [address] xxxxxxxxxxx [id number] 2003 Medicaid [place] [employer] [id number] 2003-Present [phone] [address] [place] [address] Medicaid [id number] 2003 Unknown [id number] 2003 Unknown [id number]. [id number] 1970 Unknown [id number] 2.16.840.1.317813.3.579.2. 902 1970 Unknown [id number] 2.16.840.1.681787.3.579.2. 651 1970 Unknown [id number] 2.16.840.1.454086.3.579.2. 651 1970 Unknown [id number] 2.16.840.1.385178.3.579.2. 651 1970 Unknown [id number] 2.16.840.1.726405.3.579.2. 651 1970 Unknown [id number] 2.16.840.1.075483.3.579.2. 651 1970 Unknown [id number] 2.16.840.1.649196.3.579.2. 651 1970 Unknown [id number] 2.16.840.1.450067.3.579.2. 651 1970 Unknown [id number] 2.16.840.1.726944.3.579.2. 651 1970 Unknown [id number] 2.16.840.1.052790.3.579.2. 651 1970 Unknown [id number] 2.16.840.1.527157.3.579.2. 651 1970 Unknown [id number] 2.16.840.1.982870.3.579.2. 651 1970 Unknown [id number] 2.16.840.1.694750.3.579.2. 651 1970 Unknown [id number] 2.16.840.1.044805.3.579.2. 651 1970 Unknown [id number] 2.16.840.1.900588.3.579.2. 651 1970 Unknown [id number] 2.16.840.1.180287.3.579.2. 651 Self-pay SELF PAY [id number] Worker's Compensation [id number] Social History Date Type Detail Facility Start: 08-12-2020 [facility] Work Phone: Start: 07-20-2020 Never [facility] Work Phone: Start: 07-20-2020 No [facility] Work Phone: Start: 1970 Sex Assigned At Female C [employer] Work Phone: Start: 07-21-2020 End: 09-12-2022 Tobacco smoking status NHIS Current every day smoker [facility] History of tobacco use Cigarette Smoker [facility] Start: 07-21-2020 End: 09-12-2022 Tobacco use and exposure Never used [facility] Start: 07-21-2020 Alcohol intake Ex-drinker (finding) [facility] Start: 07-21-2020 Alcohol Comment hx of alcohol use disorder many years ago [facility] Start: 1970 Sex Assigned At Not on file M Ubooly Exposure to SARS-CoV -2 (event) Unable to assess [facility] Start: 08-30-2019 [facility] ever [facility] Start: 11-20-2019 End: 09-12-2022 Alcohol intake Current non-drinker of alcohol (finding) [facility] Start: 12-13-2017 Tobacco Comment down to 5-6 per day [facility] Start: 09-12-2022 Cigarettes smoked current (pack per day) - Reported 0.5 [facility] Start: 09-02-2022 End: 09-12-2022 Exposure to SARS-CoV-2 (event) Not sure [facility] Goals Date Patient Goal Desired Activity /State Functional Status Date Assessment Result Facility 08-14-2020 Functional status Independent [facility] Work Phone: 08-11-2020 Functional status Oral Expressio n Ability No Impairment [facility] Work Phone: Mental Status Date Assessment Result Facility 08-14-2020 Cognitive function Name [facility] Work Phone: 08-11-2020 Cognitive function Comprehension Ability No Impairment [facility] Work Phone: 07-29-2020 Cognitive function Level Of Cons ciousness Awake;Alert;Appropriate;Follow s Commands [facility] Work Phone: 07-21-2020 Cognitive function Level Of Cons ciousness Awake;Alert;Appropriate;Follow s Commands [facility] Work Phone: Clinical Notes 05-07-2010 to 02-08-2023 Helena López - 09/12/2022 3:48 PM John Paul Baig RN - 09/12/2022 2:51 PM EST Note Date & Type Note Facility 02-08-2023 Note . MICRO - Microbiology PROCEDURE: Culture Beta Strep Only [*1] SOURCE: Throat BODY SITE: COLLECTED DATE/TIME: 02/06/2023 13:34 EDT RECEIVED DATE/TIME: 02/06/2023 21:11 EDT START DATE/TIME: 02/06/2023 21:12 EDT FREE TEXT SOURCE: FINAL REPORTS Final Report [] Verified Date/Time/Personnel: 02/08/2023 07:14 EDT No Beta Strep isolated at 48hrs. PRELIMINARY REPORTS Preliminary Report [] Verified Date/Time/Personnel: 02/07/2023 08:23 EDT No beta Strep isolated at 24 hours. Performing Locations *1: This test was performed at: [facility], [address] [place] [address], [id number]- , [facility] ([place]) 09-12-2022 Note HNO ID: [id number] Author: Helena Shincaterina Service: ? Author Type: Physician Type: Progress Notes Filed: 09/12/2022 7:21 PM Note Text: Consultation requested by Dr. Shin for an opinion regarding left heel pain. My final recommendations will be communicated back to the requesting physician by way of shared Medical record or letter to requesting physician via US mail. Initial Podiatric Office Visit: Chief Complaint: This 52 year old female who presents with chief complaint:left heel pain HPI Patient presents to clinic for evaluation of left foot She has a painful skin lesion of left heel. This has been present for approximatley 6 weeks She is having a difficult time walking because of the pain. She recently went to the urgent care and had xrays taken. Xrays were suggestive of heel spur Patient was told in the ER to stay off the foot and go see podiatr. PAIN EVALUATION 09/12/2022 1452 Pain Level: 7 Pain Location: Other: See Comment bilateral feet, L>R Description: Stabbing;Sharp;Burning Duration Amount of Time: 2 Duration Units: Weeks Frequency: Continuous Intervention/Comfort measure: Distractions;Reposition;Relaxatio n No results found for: HBA1C PCP: Warren Shin MD PAST MEDICAL HISTORY Diagnosis Date Abdominal pain, generalized Abdominal pain, left lower quadrant ASCUS favoring benign 05/29/2014 Bipolar disorder with psychotic features (HCC) 11/20/2019 Seeing [facility]: Kelly Carcinoma in situ of cervix uteri 1998 COPD (chronic obstructive pulmonary disease) (HCC) Dysmenorrhea Dyspareunia Essential hypertension, benign early 30's Excessive or frequent menstruation Heavy periods Headache(784.0) seen by Yue in the past resolved Intrahepatic bile duct dilation 2014 Irregular menstrual cycle Irregular periods Major depressive disorder, single episode, unspecified reports failed all but seroquel (paxil, zoloft, prozac, wellbutrin, celexa)--[facility] Other psoriasis left roldan (anterior), right posterior leg Overweight(278.02) since depression medications started Smoker 01/09/2015 Started at age 17. Smokes form 2-1 10/10 PPD. Denies drug use Unspecified hypothyroidism age 20's lost medication coverage for Synthroid 2004 +/- Current Outpatient Medications Medication Sig lamoTRIgine (LAMICTAL) 150 mg tablet Take 150 mg by mouth once daily. levothyroxine (SYNTHROID) 100 mcg tablet Take 1 tablet by mouth once daily. SUMAtriptan (IMITREX) 50 mg tablet TAKE ONE TABLET BY MOUTH NEEDED. MAY REPEAT one DOSE in TWO HOURS. OLANZapine (ZYPREXA) 20 mg tablet Take 10 mg by mouth once daily. Per counseling center Omeprazole 40 mg capsule TAKE ONE CAPSULE BY MOUTH TWICE DAILY BEFORE MEALS TRINTELLIX 10 mg tab Take 1 tablet by mouth once daily. hydrOXYzine HCl (ATARAX) 50 mg tablet Take 1 tablet by mouth twice daily as needed for Anxiety. acetaminophen (TYLENOL) 325 mg tablet Take 650 mg by mouth every 6 hours as needed. vortioxetine (TRINTELLIX) 10 mg tab Take by mouth. Per counseling center (Patient not taking: Reported on 09/12/2022) gabapentin (NEURONTIN) 300 mg capsule Take 1 capsule by mouth three times daily for 90 days. No current facility-administered medications for this visit. ALLERGIES Allergen Reactions Bactrim [Sulfametho* Hives, Shortness of Breath Codeine Shortness of Breath Heart races Macrobid [Nitrofura* Shortness of Breath Mobic [Meloxicam] Vomiting Naprosyn [Naproxen] GI Upset Sulfa (Sulfonamide * Itching Augmentin [Amoxicil* GI Upset, Itching PAST SURGICAL HISTORY Procedure Laterality Date 2D ECHO (EXEP) 12/03/2013 EF=70% no significant valvular disease. 2D ECHO (EXEP) 11/2014 EF=70 % unremarkable valves. CHOLECYSTECTOMY 2005 [facility] COLONOSCOPY 10/14/13 CONIZATION CERVIX W/WO DANDC RPR ELTRD EXC 1998 LEEP-Cervix EGD 10/10/11 Bai's EGD 10/14/13 Bai's ESOPHAGOGASTRODUODENOSCOPY TRANSORAL DIAGNOSTIC 11/19/2015 EGD HYSTERECTOMY HX 2013 PAST SURGICAL HISTORY OF back surgery x 2; Kayla 2000; Tobi and Toby combined 2001 = disc trimming (lumbar) fusion PAST SURGICAL HISTORY OF tubal right salpingectomy PAST SURGICAL HISTORY OF 2007 total abd colectomy with J anastomosis PAST SURGICAL HISTORY OF 2008 Exploratory surg with Corpus luteum cyst found and no further surg done PAST SURGICAL HISTORY OF 06/21/2014 AUDREY-BSO REMOVAL DEEP IMPLANT Left 02/23/2018 Removal painful hardware left wrist STRESS TEST 12/05/2014 NL STRESS TEST 11/2014 At [facility] was NL. FAMILY HISTORY Problem Relation Age of Onset Diabetes Mother fibrillation Diabetes Father Heart Father of MS, time frame unknown Prostate Cancer Father Cancer Maternal Aunt uterus or ovary Hypertension Sister Diabetes Sister Social History Tobacco Use Smoking status: Every Day Packs/day: 0.50 Years: 30.00 (more content not included)... [facility] 09-12-2022 Note HNO ID: [id number] Author: Salome Baig RN Service: ? Author Type: Registered Nurse Type: Progress Notes Filed: 09/12/2022 7:21 PM Note Text: AMB ROOMING INTAKE FLOWSHEET DATA Risk Screening Do you have concerns about personal safety or safety in the home?: No Pain Pain Level: 7 Pain Location: Other: See Comment (bilateral feet, L>R) Description: Stabbing, Sharp, Burning Duration Amount of Time: 2 Duration Units: Weeks Frequency: Continuous Intervention/Comfort measure: Distractions, Reposition, Relaxation Patient presents with: Left Foot - New, Pain Right Foot - New, Pain Patient presents for bilateral foot pain x2 weeks. Patient has been seen in ED and by PCP for pain and had mixed diagnosis. Patient carried X-Ray CD with her to appointment. [facility] 09-12-2022 History of Present illness Narrative Images from the original note were not included. Consultation requested by Dr. Shin for an opinion regarding left heel pain. My final recommendations will be communicated back to the requesting physician by way of shared Medical record or letter to requesting physician via US mail. Initial Podiatric Office Visit: Chief Complaint: This 52 year old female who presents with chief complaint:left heel pain HPI Patient presents to clinic for evaluation of left foot She has a painful skin lesion of left heel. This has been present for approximatley 6 weeks She is having a difficult time walking because of the pain. She recently went to the urgent care and had xrays taken. Xrays were suggestive of heel spur Patient was told in the ER to stay off the foot and go see podiatr. PAIN EVALUATION 09/12/2022 1452 Pain Level: 7 Pain Location: Other: See Comment bilateral feet, L>R Description: Stabbing;Sharp;Burning Duration Amount of Time: 2 Duration Units: Weeks Frequency: Continuous Intervention/Comfort measure: Distractions;Reposition;Relaxatio n No results found for: HBA1C PCP: Warren Shin MD PAST MEDICAL HISTORY Diagnosis Date Abdominal pain, generalized Abdominal pain, left lower quadrant ASCUS favoring benign 05/29/2014 Bipolar disorder with psychotic features (HCC) 11/20/2019 Seeing [facility]: Kelly Carcinoma in situ of cervix uteri 1998 COPD (chronic obstructive pulmonary disease) ([facility]) Dysmenorrhea Dyspareunia Essential hypertension, benign early ' Excessive or frequent menstruation Heavy periods Headache(784.0) seen by Yue in the past resolved Intrahepatic bile duct dilation 2014 Irregular menstrual cycle Irregular periods Major depressive disorder, single episode, unspecified reports failed all but seroquel (paxil, zoloft, prozac, wellbutrin, celexa)--[facility] Other psoriasis left roldan (anterior), right posterior leg Overweight(278.02) since depression medications started Smoker 01/09/2015 Started at age 17. Smokes form 10/10-1 10/10 PPD. Denies drug use Unspecified hypothyroidism age 20's lost medication coverage for Synthroid 2004 +/- Current Outpatient Medications Medication Sig lamoTRIgine (LAMICTAL) 150 mg tablet Take 150 mg by mouth once daily. levothyroxine (SYNTHROID) 100 mcg tablet Take 1 tablet by mouth once daily. SUMAtriptan (IMITREX) 50 mg tablet TAKE ONE TABLET BY MOUTH NEEDED. MAY REPEAT one DOSE in TWO HOURS. OLANZapine (ZYPREXA) 20 mg tablet Take 10 mg by mouth once daily. Per counseling center Omeprazole 40 mg capsule TAKE ONE CAPSULE BY MOUTH TWICE DAILY BEFORE MEALS TRINTELLIX 10 mg tab Take 1 tablet by mouth once daily. hydrOXYzine HCl (ATARAX) 50 mg tablet Take 1 tablet by mouth twice daily as needed for Anxiety. acetaminophen (TYLENOL) 325 mg tablet Take 650 mg by mouth every 6 hours as needed. vortioxetine (TRINTELLIX) 10 mg tab Take by mouth. Per counseling center (Patient not taking: Reported on 09/12/2022) gabapentin (NEURONTIN) 300 mg capsule Take 1 capsule by mouth three times daily for 90 days. No current facility-administered medications for this visit. ALLERGIES Allergen Reactions Bactrim [Sulfametho* Hives, Shortness of Breath Codeine Shortness of Breath Heart races Macrobid [Nitrofura* Shortness of Breath Mobic [Meloxicam] Vomiting Naprosyn [Naproxen] GI Upset Sulfa (Sulfonamide * Itching Augmentin [Amoxicil* GI Upset, Itching PAST SURGICAL HISTORY Procedure Laterality Date 2D ECHO (EXEP) 12/03/2013 EF=70% no significant valvular disease. 2D ECHO (EXEP) 11/2014 EF=70 % unremarkable valves. CHOLECYSTECTOMY 2006 [facility] COLONOSCOPY 10/14/13 CONIZATION CERVIX W/WO D&C RPR ELTRD EXC 1998 LEEP-Cervix EGD 10/10/11 Bai's EGD 10/14/13 Bai's ESOPHAGOGASTRODUODENOSCOPY TRANSORAL DIAGNOSTIC 11/19/2015 EGD HYSTERECTOMY HX 2013 PAST SURGICAL HISTORY OF back surgery x 2; Kayla 2000; Tobi and Toby combined 2001 = disc trimming (lumbar) fusion PAST SURGICAL HISTORY OF tubal right salpingectomy PAST SURGICAL HISTORY OF 2007 total abd colectomy with J anastomosis PAST SURGICAL HISTORY OF 2008 Exploratory surg with Corpus luteum cyst found and no further surg done PAST SURGICAL HISTORY OF 06/21/2014 AUDREY-BSO REMOVAL DEEP IMPLANT Left 02/23/2018 Removal painful hardware left wrist STRESS TEST 12/05/2014 NL STRESS TEST 11/2014 At [facility] Hosp was NL. FAMILY HISTORY Problem Relation Age of Onset Diabetes Mother fibrillation Diabetes Father Heart Father of MS, time frame unknown Prostate Cancer Father Cancer Maternal Aunt uterus or ovary Hypertension Sister Diabetes Sister Social History Tobacco Use Smoking status: Every Day Packs/day: 0.50 Years: 30.00 Pack years: 15.00 Types: Cigarettes Smokeless tobacco: Never Vaping Use Vaping Use: Never used Substance Use Topics Alcohol use: No Drug use: No REVIEW OF SYSTEMS GENERAL: Negative for Malaise, significant weight loss, fever RESPIRATORY: Negative for cough, wheezing and shortness of breath CARDIOVASCULAR: Negative for chest pain, leg swelling and palpitations GI: Negative for abdominal discomfort, blood in stools or black stools and change in bowel habits : Negative for dysuria, frequency and incontinence MUSCULOSKELETAL: Negative for joint pain or swelling, back pain, and muscle pain. SKIN: Negative for lesions, rash, and itching. HEMATOLOGY/LYMPHOLOGY Negative for prolonged bleeding, bruising easily, and swollen nodes. ENDOCRINE: Negative for cold or heat intolerance, polyuria, polydipsia and goiter. NEURO: negative Physical Exam: Constitutional: Pt is a well developed 52 year old female who is alert, oriented and cooperative Eyes: Following during examination. No redness or drainage. Respiratory: RR normal and nonlabored. Even breathing. No evidence of distress or shortness of breath. Psychology: Patient is engaged during conversation. Normal affect and mood. Does not appear depressed or anxious during encounter. Vascular: Dorsalis pedis and posterior tibial pulses nonpalpable as b/l Capillary Fill time < 5 seconds to digits 1-5 b/l Skin temperature warm to cool proximal to distal b/l Hair growth absent to digits Neurological: intact light touch/epicritic sensation b/l intact protective sensation no significant neurological deficits Dermatological: Nails 1-5 b/l appear normal. Webspaces clean and dry 1-4 b/l. Skin appears well hydrated and supple. good color, texture, turgor. No open lesions present. Callus present to right heel and left 1st metatarsal. There is lesion to plantar left heel resembling wart but significant pain to palpation. No signs of infection are noted. Mild swelling present to left heel Musculoskeletal/Orthopaedic: Patient has pain to palpation of left plantar heel Foot type is neutral structurally AJ ROM is full with knee extended and flexed 1st MPJ is full when loaded and no pain or crepitus are noted with ROM. MTJ, STJ are full and free of pain and crepitus. +5/5 muscle strength dorsiflexion, plantarflexion, inversion, eversion b/l Radiographs: 3 views left foot reviewed from outside facility: no acute fracture. Plantar heel spur. ASSESSMENT: (Q82.8) Porokeratosis (primary encounter diagnosis) Plantar wart (R09.89) Diminished pulses in lower extremity (M79.672) Pain in left foot (M86.072) Acute hematogenous osteomyelitis of left ankle (HCC) PLAN: 1. History and physical examination performed. 2. XR reviewed with patient and interpreted today 3. Discussed pain in left plantar heel. Patient has painful skin lesion that resembles wart vs porokeratosis. I would like to proceed with further debridement but given nonpalpable pulses, I only debrided superficially a benign skin lesion with 15 blade. No bleeding or deep wound encountered. I will pursue further debridement once I obtain pvr 4. Due to severe pain, cannot exclude deep abscess. For this reason, I am going to suggest getting mri. 5. F/u in 1-2 weeks 6. If pain persists, present to ED. Helena López DPM Podiatry [address] [address] Dept: [phone] Dept AMB ROOMING INTAKE FLOWSHEET DATA Risk Screening Do you have concerns about personal safety or safety in the home?: No Pain Pain Level: 7 Pain Location: Other: See Comment (bilateral feet, L>R) Description: Stabbing, Sharp, Burning Duration Amount of Time: 2 Duration Units: Weeks Frequency: Continuous Intervention/Comfort measure: Distractions, Reposition, Relaxation Patient presents with: Left Foot - New, Pain Right Foot - New, Pain Patient presents for bilateral foot pain x2 weeks. Patient has been seen in ED and by PCP for pain and had mixed diagnosis. Patient carried X-Ray CD with her to appointment. documented in this encounter [facility] 04-06-2022 Note Patient Outreach (IN [facility]) TO KEANE ([id number]) 1970 F CPA Date Time Provider Department 04/06/22 WARREN SHIN During your visit today, we recorded the following information about you: Allergies As of Date: 04/06/2022 Noted Allergy Reaction BACTRIM (SULFAMETHOXAZOLE-TRIMETH* 007 4 - Hives 12 - Shortness of Breath CODEINE 10/31/2008 12 - Shortness of Breath Comments: Heart races MOBIC (MELOXICAM) 12/13/2017 11 - Vomiting NAPROSYN (NAPROXEN) 12/13/2017 8 - GI Upset SULFA (SULFONAMIDE ANTIBIOTICS) 11/25/2008 9 - Itching tordol [Other] 01/22/2007 11 - Vomiting TRAMADOL 12/20/2017 5 - Intolerance Comments: Causes seizures AUGMENTIN (AMOXICILLIN-POT CLAVUL*01/22/2007 8 - GI Upset 9 - Itching ULTRAM (TRAMADOL HCL) 01/22/2007 8 - GI Upset Date Reviewed: 04/26/2019 Reviewed by: Harriet Knight LPN - Fully Assessed Visit Diagnosis:Encounter for screening mammogram for breast cancer [Z12.31] Order(s):[facility] SCREENING [[id number]] Order #: [id number] FUTURE Prescriptions as of 04/11/2022 - levothyroxine (SYNTHROID) 100 mcg tablet Take 1 tablet by mouth once daily. - SUMAtriptan (IMITREX) 50 mg tablet TAKE ONE TABLET BY MOUTH NEEDED. MAY REPEAT one DOSE in TWO HOURS. - OLANZapine (ZYPREXA) 20 mg tablet Take 0.5 tablets by mouth twice daily. Per counseling center - vortioxetine (TRINTELLIX) 10 mg tab Take by mouth. Per counseling center - Omeprazole 40 mg capsule TAKE ONE CAPSULE BY MOUTH TWICE DAILY BEFORE MEALS - TRINTELLIX 10 mg tab Take 1 tablet by mouth once daily. - hydrOXYzine HCl (ATARAX) 50 mg tablet Take 1 tablet by mouth twice daily as needed for Anxiety. - gabapentin (NEURONTIN) 300 mg capsule Take 1 capsule by mouth three times daily for 90 days. - acetaminophen (TYLENOL) 325 mg tablet Take 650 mg by mouth every 6 hours as needed. Problem List As Of Date 04/06/2022 Noted Resolved Major depressive disorder, single episode, unsp* Overweight(278.02) [E66.3] Acquired hypothyroidism [E03.9] Essential hypertension, benign [I10] Headache(784.0) [R51] 12/20/2017 Other psoriasis [L40.8] Dysmenorrhea [N94.6] 05/07/2010 Dyspareunia [FMP7414] 05/07/2010 2014 Other and unspecified ovarian cyst [N83.209] 05/07/2010 2014 Complex ovarian cyst [N83.299] 2014 Intrahepatic bile duct dilation [K83.8] 2014 Abnormal uterine bleeding (AUB) [N93.9] 2014 ASCUS favoring benign [CWA2627] 05/29/2014 Smoker [F17.200] 01/09/2015 Cyanosis [R23.0] 01/09/2015 H/O acute renal failure [Z87.448] 01/13/2015 Drug abuse (HCC) [F19.10] 11/11/2015 Acute posthemorrhagic anemia [D62] 11/13/2015 S/P total colectomy [Z90.49] 11/13/2015 Numbness and tingling sensation of skin [R20.0,*11/24/2015 Radicular pain of right lower extremity [M54.10]11/24/2015 Abnormal sensation of leg [R20.9] 11/24/2015 Bilateral low back pain with right-sided sciati*11/24/2015 Urinary hesitancy [R39.11] 11/24/2015 Bowel incontinence [R15.9] 11/24/2015 Chronic, continuous use of opioids [F11.90] 01/20/2016 Chronic back pain greater than 3 months duratio*01/20/2016 Chronic pain syndrome [G89.4] 01/20/2016 Postlaminectomy syndrome [M96.1] 01/20/2016 Pain in left wrist [M25.532] 02/22/2018 Painful orthopaedic hardware (HCC) [T84.84XA] 02/22/2018 Bipolar disorder with psychotic features (HCC) *11/20/2019 Encounter Status:Closed by CARROLL, PRODUSER on 04/11/22 [facility] 12-01-[address] [address] HEALTH INFORMATION MANAGEMENT OPERATIVE REPORT : [id number] Signed Patient: TO KEANE Acct:[id number] MRUN: [id number] : 1970 Sex: F Loc: 3OP ADM Date: Room/Bed: DISC Date: 11/30/20 Operative Note DATE OF SERVICE: 11/30/20 SURGEON: Ivory Oliva MD PREOPERATIVE DIAGNOSIS: Dysphagia POSTOPERATIVE DIAGNOSIS: Esophageal foreign body, anastomotic stricture PROCEDURE: EGD with evacuation of esophageal foreign body, balloon dilatation of anastomotic stricture, removal of operative gastrostomy tube with flexible endoscopy of distal gastric remnant, insertion of replacement PEG tube ANESTHESIA: MAC then general endotracheal anesthesia COMPLICATIONS: none SPECIMENS: biopsies of the distal gastric remnant to evaluate for H pylori EBL: none INDICATIONS: The patient has vomiting and problems keeping food down. She is 8 weeks after a gastrojejunostomy for GERD in the presence of an esophagus with impaired motility. She also has pain at her operative G tube site so we will insert a replacement PEG tube. Biopsies will be taken of the distal gastric remnant to evaluate for H pylori after having had treatment. The procedure has been reviewed and consent provided. PROCEDURE IN DETAIL: After the patient was given an adequate MAC anesthetic, the upper endoscope was inserted through the mouth into the esophagus. A large amount of foam and food particles were present. Due to the risk of aspiration, the procedure was converted to a general endotracheal anesthetic. Using a combination of irrigation suction and a net, the esophagus was cleared of particles enough to do an adequate exam. It was apparent that the previous ulcerated appearance to the esophagus had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 Tobacco use Past Surgical History Past Surgical History: Procedure Laterality Date APPENDECTOMY N/A COLECTOMY ECTOPIC SURGERY Family History Family History Problem Relation Age of Onset Diabetes Mother Heart attack Father 43 Social History Social History Tobacco Use Smoking Status Current Every Day Smoker Types: Cigarettes Smokeless Tobacco Never Used Social History Substance and Sexual Activity Alcohol Use Not Currently Comment: hx of alcohol use disorder many years ago Social History Substance and Sexual Activity Drug Use Yes Types: Methamphetamines Comment: last use 3 weeks ago Allergy Information I have reviewed the patient's allergies. Patient has no known allergies. Home Medications Home medications were reviewed. Review Of Systems All systems have been reviewed and are negative except as noted in HPI or below Physical Examination BP 92/60 (BP Location: Right arm, Patient Position: Lying) Pulse 82 Temp 97.6 F (36.4 C) (Oral) Resp 16 Wt 74.5 kg (164 lb 3.9 oz) SpO2 96% General Appearance: alert, well appearing, and in mild-mod acute distress, grabbing at her stomach HEENT: Head- normocephalic; Eyes- PERRLA, EOMI; Ears-hearing intact; Nose- no nasal discharge; Throat- oropharynx normal Cardiovascular: regular rate and rhythm; normal S1, S2; no murmurs, rubs, clicks or gallops; no peripheral edema Respiratory: lungs clear to auscultation; without wheezes, rales or rhonchi Abdomen: soft, moderately tender in right side of abdomen, non-distended; positive bowel sounds Neurological: alert, oriented x 3, normal speech; no focal findings or movement disorder noted Musculoskeletal: no significant deformity or tenderness to palpation Skin: normal coloration, texture and turgor; no lesions or eruptions Psych: normal mood and affect Laboratory and Additional Data Reviewed Laboratory 07/21/20 5:22 AM Radiology 07/21/20 5:22 AM Medications 07/21/20 5:22 AM Transcriptions 07/21/20 5:22 AM Expected Discharge/Time Spent documented in this encounter [facility] - Lovely Krishnamurthy RN - 07/22/2020 1:06 PM EDTPlan of [place]ida - Linda Monae RN - 07/22/2020 2:42 AM EDTPlan of Lovely Byrnes RN - 07/21/2020 9:16 AM EDT Miscellaneous Notes (unrecog nized section and content) Problem: Actual or potential alteration in health Goal: Absence of healthcare acquired conditions Outcome: Partially Met Goal: Knowledge of Interdisciplinary Plan of Care Outcome: Partially Met Goal: Knowledge of Enviroment Outcome: Partially Met Problem: Pain Goal: Manage acute pain Outcome: Partially Met Goal: Manage chronic pain Outcome: Partially Met Goal: Reduced pain sensation Outcome: Partially Met Goal: Achievement of comfort function goal Outcome: Partially Met Problem: Actual or potential alteration in health Goal: Absence of healthcare acquired conditions Outcome: Partially Met Goal: Knowledge of Interdisciplinary Plan of Care Outcome: Partially Met Goal: Knowledge of Enviroment Outcome: Partially Met Problem: Pain Goal: Manage acute pain Outcome: Partially Met Goal: Manage chronic pain Outcome: Partially Met Goal: Reduced pain sensation Outcome: Partially Met Goal: Achievement of comfort function goal Outcome: Partially Met Problem: Nausea/Vomiting Goal: Absence of nausea/vomiting Outcome: Partially Met Goal: Adequate nutritional intake Outcome: Partially Met Problem: Pressure Ulcer - Risk of Goal: Absence of pressure ulcer Outcome: Partially Met Problem: Pain Goal: Manage acute pain Outcome: Partially Met Goal: Manage chronic pain Outcome: Partially Met Goal: Reduced pain sensation Outcome: Partially Met Goal: Achievement of comfort function goal Outcome: Partially Met Problem: Nausea/Vomiting Goal: Absence of nausea/vomiting Outcome: Partially Met Goal: Adequate nutritional intake Outcome: Partially Met documented in this encounter Source Comments (unrecognize d section and content) In the event this informatio n is protected by the Federal Confidentiality of Alcohol and Drug Abuse Patient Records regulations: The Federal rules restrict any use of the information to criminally investigate or prosecute any alcohol or drug abuse patient.[facility] the event this information is protected by the Federal Confidentiality of Alcohol and Drug Abuse Patient Records regulations: The Federal rules restrict any use of the information to criminally investigate or prosecute any alcohol or drug abuse patient.[facility] Care Teams (unrecognized sec tion and content) Dive Superintendent Relationship Specialty Start Date End Date Warren Shin MD [address] [place] [address] PCP - General 11/19/15 FOR RECORDS PERTAINING TO PATIENTS WHO ARE OR HAVE BEEN ENROLLED IN A CHEMICAL DEPENDENCY/SUBSTANCEABUSE PROGRAM, SOME INFORMATION MAY BE OMITTED. This clinical summary was aggregated from multiple sources. Caution should be exercised in using it in the provision of clinical care. This summary normalizes information from multiple sources, and as a consequence, information in this document may materially change the coding, format and clinical context of patient data. In addition, data may be omitted in some cases. CLINICAL DECISIONS SHOULD BE BASED ON THE PRIMARY CLINICAL RECORDS. [facility] [employer] [facility]. provides no warranty or guarantee of the accuracy or completeness of information in this document.
--- NOTE | 2023-12-16 17:04 | CT_ITS ---
STUDY: CT ABDOMEN AND PELVIS WITH CONTRAST REASON FOR EXAM: Female, 53 years old. abdominal pain RADIATION DOSAGE (If Supplied By Facility): CTDIvol = ( 14.05 ) mGy, DLP = ( 233.56 ) mGycm TECHNIQUE: Transaxial images were obtained from the dome of the diaphragm to the symphysis pubis without oral contrast. isovue 370 75 ml was administered. Sagittal and coronal images were reconstructed. Individualized dose optimization techniques were used for this CT. COMPARISON: July 25, 2020 FINDINGS: Mild atelectasis within the dependent portion of the lower lobes.. The visualized portions of the heart are within normal limits. Small hiatal hernia is noted. Liver is mildly enlarged and heterogeneous attenuation without focal space-occupying lesions.. The bile ducts are dilated status post cholecystectomy. There is also mild prominence of the pancreatic head and neck and proximal pancreatic body without evidence for acute pancreatitis at this time.. Normal spleen. . Normal bilateral adrenal glands. Normal right kidney. Normal left kidney. No evidence for small bowel obstruction however there does appear to be some mild prominence of the gastric rugal folds and folds of the small bowel possibly representing gastroenteritis . Postsurgical changes status post subtotal colectomy with residual rectal pouch.. Appendix not visualized consistent with appendectomy. Mild atherosclerotic changes of the aorta without evidence for aneurysm. Normal inferior vena cava. Normal retroperitoneum. Normal urinary bladder. Uterus not visualized consistent with hysterectomy Normal abdominal wall. Lumbar spine demonstrates degenerative changes. Grade 1 spondylolisthesis L4-5. Postsurgical changes status post bilateral laminectomy and posterior fusion at L5-S1. CT/Abdomen/Pelvis W IV Cont ONLY IMPRESSION: Findings which may be consistent with nonspecific gastroenteritis however comparison with prior exam demonstrates persistent bile duct dilatation and increasing dilatation of the pancreatic duct since prior exam suggesting possibility of chronic pancreatitis without intraductal stone possibly representing periampullary obstructing lesion MRI/MRCP would be useful for further evaluation if clinically warranted. Electronically Signed: Warren Weaver MD at 19:03 EST ,
[2023-12-16 17:24] LABS: AST(SGOT) 15 U/L (15-37); Alanine Aminotransfer ALT/SGPT 21 U/L (13-56); Alkaline Phosphatase 178 U/L (45-117); Anion Gap 3 (5-15); BUN 24 mg/dL (7-18); BUN/Creat Ratio 29.1 RATIO (10-20); Calcium,Total 9.5 mg/dL (8.5-10.1); Chloride 111 mmol/L (98-107); Creatinine, Serum 0.82 mg/dL (0.55-1.02); EST Glomerular Filtration Rate 77 mL/min (>60); Est Glom Filt Rate - Afr Amer 93 mL/min (>60); Estimated Creatinine Clearance 56.81 ml/min; Globulin 4.1 g/dL (2.2-4.2); Glucose 118 mg/dL (74-106); Lipase 27 U/L (13-75); Potassium 3.6 mmol/L (3.5-5.1); Protein, Total 8.1 g/dL (6.4-8.2); Sodium Level 140 mmol/L (136-145)
[2023-12-16] MEDS: Nitrofurantoin Macrocrystals 100 MG Capsule PO (19:41)
[2023-12-16 19:50] VITALS: BP 106/74; PULSE 87; RESP 18; TEMP 36.6; O2SAT 99
== END 2023-12-16 19:52 | disposition home or self-care (01) ==
PROVIDERS: Nurse Practitioner; Emergency Provider Emergency Medicine; PCP Student in an Organized Health Care Education/Training Program; Visit Provider Emergency Medicine
DX: N39.0 Urinary tract infection, site not specified (principal); M54.50 Low back pain, unspecified; F17.210 Nicotine dependence, cigarettes, uncomplicated; F41.9 Anxiety disorder, unspecified; G89.29 Other chronic pain; W18.39XA Other fall on same level, initial encounter; Y92.89 Other specified places as the place of occurrence of the external cause; Z79.899 Other long term (current) drug therapy; Z90.710 Acquired absence of both cervix and uterus; Z90.49 Acquired absence of other specified parts of digestive tract
CPT/HCPCS: 72100; 74177; 80053; 81001; 83690; 85025; 87086; 87088; 96361; 96372; 96374; 96375; 99283; J7030; Q9967; J2405

== ENCOUNTER 2024-01-18 14:09 | Emergency (ER) | payer MEDICAID, SELFPAY ==
[2024-01-18 14:10] VITALS: BP 118/80; PULSE 79; RESP 14; TEMP 36.1; O2SAT 100; BMI 16.7
--- NOTE | 2024-01-18 15:59 | EDS_ITS ---
HPI <NANCY Díaz - Last Filed: 01/18/24 17:14> History of Present Illness Chief Complaint: Lower Extremity Injury Narrative Narrative: Patient is a 53-year-old female with history of anxiety, depression presents to the emergency department with acute on chronic right hip and right lower back pain. Patient states has been dealing with this for several months, she states today was hurting so bad she could not go to work. Patient states it starts in her back radiates down her groin down her mid thigh. She denies any loss of bowel or bladder control, denies any fever or chills, denies any nausea or vomiting. Patient Nuys any new trauma. She is currently try to get into see pain management. PFS <NANCY Díaz - Last Filed: 01/18/24 17:14> [facility] Medical History (Updated 01/18/24 @ 17:[address] 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 Home Medications levothyroxine 75 mcg tablet 100 mcg PO DAILY 10/18/17 [History Last Taken 12/14/18] omeprazole 40 mg capsule,delayed release 40 mg PO BID GERD 12/14/18 [History Last Taken 12/14/18] vortioxetine 10 mg tablet (Trintellix) 10 mg PO DAILY depression 12/14/18 [History Last Taken 12/14/18] hydroxyzine pamoate 50 mg capsule 50 mg PO TID PRN PRN Anxiety 07/10/19 [History Last Taken Unknown] ondansetron 4 mg disintegrating tablet 4 mg PO Q8H PRN PRN Nausea #7 tabs 01/03/20 [Rx Last Taken Unknown] sucralfate 1 gram tablet 1 gm PO 4X/DAY 09/19/20 [History Last Taken Unknown] nitrofurantoin monohydrate/macrocrystals 100 mg capsule (Macrobid) 100 mg PO Q12H 5 days #10 caps 12/16/23 [Rx Last Taken Unknown] oxycodone-acetaminophen 5 mg-325 mg tablet (Percocet) 1 tab PO Q8H PRN pain 2 days #6 tabs 12/16/23 [Rx Last Taken Unknown] hydrocodone-acetaminophen 5-325mg 5mg-325mg 1 tab PO Q4H PRN PRN Pain 3 days #10 TABLETS 04/11/24 [Rx Last Taken Unknown] naproxen 500 mg tablet (Naprosyn) 500 mg PO BID PRN pain #20 tabs 01/18/24 [Rx Last Taken Unknown] Allergy/AdvReac Type Severity Reaction Status Date / Time codeine Allergy Other Verified 01/18/24 14:10 meloxicam [From Mobic] Allergy Chest Verified 01/18/24 14:10 tightness Sulfa (Sulfonamide Allergy Itching Verified 01/18/24 14:10 Antibiotics) tramadol Allergy SEIZURES Verified 01/18/24 14:10 morphine AdvReac Other Verified 01/18/24 14:10 Surgical History colon History of hysterectomy left wrist S/P appendectomy s/p back S/P cholecystectomy Social History Smoking Status: Current every day smoker tobacco type: cigarettes ROS <NANCY Díaz - Last Filed: 01/18/24 17:14> ROS ED ROS Narrative Constitutional: Negative for fever, chills, weight loss, weakness Eyes: Negative for vision loss, vision change, double vision ENT: Negative for any sore throat, ear pain, congestion Cardiovascular: Negative for any chest pain, tightness, palpitations Respiratory: Negative for any cough, sputum production, hemoptysis, dyspnea, dyspnea on exertion, orthopnea Gastrointestinal: Negative for any abdominal pain, nausea, vomiting, diarrhea, constipation, blood in stool, blood in vomit : Negative for any urinary frequency, dysuria, retention, blood in urine Muscle skeletal: Negative for any neck pain. Positive right hip, right back pain Neurological: Negative for any headache, syncope, dizziness Skin: Negative for any rashes, itching, abrasions, lacerations Psychiatric: Negative for any depression, anxiety, stress, suicidal ideation, homicidal ideation Hematologic: Negative for any excessive bruising, easy bleeding EXAM <NANCY Díaz - Last Filed: 01/18/24 17:14> Physical Exam Narrative Exam Narrative: Vital signs reviewed. HEET: Head normocephalic atraumatic, TMs clear bilaterally. Posterior pharynx is clear, moist mucous membranes. Nares clear bilaterally. Neck: Supple with no lymphadenopathy or tenderness. No signs of meningismus. Cardiac: Regular rate and rhythm no murmurs gallops or rubs, equal peripheral pulses bilaterally. Respiratory: Lungs clear to auscultation bilaterally. No chest tenderness. Abdomen: Soft, nontender, nondistended. No abdominal bruit or pulsatile masses. No hepatosplenomegaly Extremities: No peripheral edema, no signs of gross trauma or deformity. Active full range of motion of all extremities. Patient equal strength of bilateral lower extremities. Equal pulses. I did have the patient get up and ambulate. Patient does have a limp however is able to walk on her heels, tiptoes. Neuro: Cranial nerves II through XII intact, no focal neurological deficits. Skin: Clean dry and intact with no rash, purpura, petechiae, vesicles or pustules. Backs/flank: No CVA tenderness, no midline spinal tenderness, no deformity. Psych: Normal mood and affect. No SI, HI or acute psychosis. Const Vital Signs: 01/18/24 14:10 01/18/24 17:27 Temperature 97 F L 98 F Temperature Source Temporal Pulse Rate 79 71 Respiratory Rate 14 12 Blood Pressure 118/80 112/81 H Blood Pressure Mean 92 91 Pulse Ox 100 98 Oxygen Delivery Method Room Air <Dr. Ben Agosto MD - Last Filed: 01/18/24 17:34> Physical Exam Const Vital Signs: 01/18/24 14:10 01/18/24 17:27 Temperature 97 F L 98 F Temperature Source Temporal Pulse Rate 79 71 Respiratory Rate 14 12 Blood Pressure 118/80 112/81 H Blood Pressure Mean 92 91 Pulse Ox 100 98 Oxygen Delivery Method Room Air [facility] <NANCY Díaz - Last Filed: 01/18/24 17:14> [facility] Radiography Diagnostic Testing: Clinical Impression(s) from Imaging Studies Hip/Pelvis X-Ray 01/18/24 16:45 IMPRESSION: No evidence of displaced pelvic or hip fracture. Electronically Signed: Nehemiah Canales DO at 17:00 EDT , Treatment and Re-Evaluation :: Differential diagnosis includes however is not limited to: Lumbar radiculopathy, arthritis, hip strain Patient appears to be in no obvious respiratory distress, patient's vital signs are stable, patient presents to the emergency department with complaints of right hip pain that radiates into her groin. Patient is ambulatory, patient will receive x-rays of the right hip, patient also receive IV morphine for pain. All radiologic examinations were read, reviewed by the emergency department attending. From these reads, a plan of care will be put in place. Patient's x-ray of the right hip interpreted to the ER physician was negative for any acute process. Patient did receive IV morphine, this did decrease her pain. At this time, patient be diagnosed with acute on chronic pain, she will need to continue to follow-up with her PCP as well as pain management. Patient be given 10 Duarte tablets, she will also be given naproxen. She is instructed to return for any worsening symptoms. At this time, patient has no red flag signs, patient stable for discharge. <Dr. Ben Agosto MD - Last Filed: 01/18/24 17:34> [facility] MDM Narrative Medical decision making narrative: I have personally performed a face to face assessment of the patient and have reviewed the RADHA Note. I performed a substantive portion of the visit including all aspects of the following. My munoz findings include: History is remarkable for pain in her right groin and lateral aspect of the proximal right thigh over the greater trochanteric region. Patient denies fever, chills night sweats. She denies bowel bladder dysfunction. Denies saddle paresthesia anesthesia. She denies foot drop and has buckling of her knees going up and down steps. She denies knee pain. She denies fever, chills night sweats. She denies recent dental procedure. There is no history of trauma. Patient does have history of calcific tendinitis of the shoulder. Patient has no history of renal disease. She has history of GERD but now peptic ulcer disease. She is never had black or maroon-colored stools. She denies kidney disease. Exam is remarkable for pain in the right inguinal area. 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 Gregorio Teodora 4 test causes pain in the right inguinal area. There is minimal pain over the right greater trochanteric region. There is no warmth, redness erythema or fluctuance. Straight leg test is negative right and left. EHLs intact bilaterally. Patient reports abnormal sensation over multiple dermatomes on the right. Patellar and ankle reflex are 1+. No clonus or Babinski sign. DP pulses palpable bilateral 1+. Patient does not have reproducible back pain. Medical Decision Making suspect pain is in the hip joint. Hip x-ray was ordered. Will treat with IV morphine. Also will treat with ketorolac. Other additions or changes: [None] Radiography Chest X-Ray - ED: Read by ED Physician (Three-view x-ray of the right hip reveals no acute process. There is no obvious degenerative changes noted.) Diagnostic Testing: Clinical Impression(s) from Imaging Studies Hip/Pelvis X-Ray 01/18/24 16:45 IMPRESSION: No evidence of displaced pelvic or hip fracture. Electronically Signed: Nehemiah Canales DO at 17:00 EDT Reading Location ID and State: [facility] / [place] Tel [phone], Service support , Discharge Plan Triage Chief Complaint: Lower Extremity Injury ED Midlevel Provider: Sam Kendall ED Provider: Ben Agosto Dx/Rx/DC Orders Clinical Impression: Acute exacerbation of chronic low back pain, Chronic pain of right hip, Acute pain of right hip Instructions: Understanding Chronic Pain, ED Back and Neck Pain, General Prescriptions: New naproxen [Naprosyn] 500 mg tablet 500 mg PO BID PRN (Reason: pain) Qty: 20 0RF hydrocodone-acetaminophen 5-325 mg tablet 1 tab PO Q4H PRN PRN (Reason: Pain) 3 Days Qty: 10 0RF No Action levothyroxine 75 MCG tablet 100 mcg PO DAILY vortioxetine [Trintellix] 10 MG tablet 10 mg PO DAILY Patient Comments: TAKE ONE TABLET BY MOUTH EVERY DAY omeprazole 40 capsule,delayed release(DR/EC) 40 mg PO BID hydroxyzine pamoate 50 MG capsule 50 mg PO TID PRN PRN (Reason: Anxiety) ondansetron 4 MG tablet 4 mg PO Q8H PRN PRN (Reason: Nausea) Qty: 7 0RF sucralfate 1 GM tablet 1 gm PO 4X/DAY oxycodone-acetaminophen [Percocet] 5-325 mg tablet 1 tab PO Q8H PRN (Reason: pain) 2 Days Qty: 6 0RF nitrofurantoin monohyd/m-cryst [Macrobid] 100 mg capsule 100 mg PO Q12H 5 Days Qty: 10 0RF Rx Instructions: must administer with a meal/food Primary Care Provider: Gerri Gonzales Referrals: Gerri Gonzales MD [Primary Care Provider] - Activity Restrictions/Additional Instructions: Please follow-up outpatient. Take the pain medicine as needed. Perform gentle stretching, return for any worsening symptoms. Disposition Disposition: Home, Self Care Discharge Date/Time: 01/18/24 17:30
[2024-01-18] MEDS: Morphine 4 MG/ML Syringe IV (16:37)
--- NOTE | 2024-01-18 16:45 | RAD_ITS ---
INDICATION: hip pain EXAMINATION/TECHNIQUE: X-RAY - XR Hip Unilateral with Pelvis when performed; 3 Views COMPARISON: FINDINGS: PELVIC BONES: No displaced fracture, destructive or sclerotic lesions. Note that overlapping bowel shadows may however obscure fine detail. Sacroiliac joints are unremarkable. No widening of the pubic symphysis. HIPS: The articular structures are unremarkable. No displaced fracture seen in this frontal view. SOFT TISSUES: No soft tissue swelling or gas. Surgical fusion at the lumbosacral junction. RAD/HIP, UNI W/ Pelvis 2-3 Views IMPRESSION: No evidence of displaced pelvic or hip fracture. Electronically Signed: Nehemiah Canales DO at 17:00 EDT Reading Location ID and State: [facility] / [place] Tel [phone], Service support ,
[2024-01-18 17:27] VITALS: BP 112/81; PULSE 71; RESP 12; TEMP 36.6; O2SAT 98
== END 2024-01-18 17:30 | disposition home or self-care (01) ==
LOC: ED 16:06
PROVIDERS: Emergency Provider Emergency Medicine; PCP Student in an Organized Health Care Education/Training Program; Visit Provider Emergency Medicine
DX: G89.29 Other chronic pain (principal); M25.551 Pain in right hip; M54.50 Low back pain, unspecified; F41.9 Anxiety disorder, unspecified; K21.9 Gastro-esophageal reflux disease without esophagitis; F17.210 Nicotine dependence, cigarettes, uncomplicated; F32.A Depression, unspecified; Z90.49 Acquired absence of other specified parts of digestive tract; Z79.899 Other long term (current) drug therapy; Z90.710 Acquired absence of both cervix and uterus
CPT/HCPCS: 73502; 96374; 99283; A4216

== ENCOUNTER 2024-05-16 18:37 | Emergency (ER) | payer MEDICAID, SELFPAY ==
[2024-05-16 18:38] VITALS: BP 104/78; PULSE 95; RESP 15; TEMP 36; O2SAT 97; BMI 14.9
[2024-05-16 20:24] LABS: Absolute Lymphocyte Count 2.27 X10^3/uL (0.83-4.51); Absolute Neutrophil Count 3.6 X10^3/uL (2.0-7.7); Basophil# 0.05 X10^3/uL; Basophil% 0.7 % (0-1); Eosinophil# 0.12 X10^3/uL; Eosinophils% 1.7 % (0-5); Hematocrit 43.2 % (37-47); Hemoglobin 13.7 g/dL (12.0-15.0); Lymphocyte # 2.27 X10^3/ul (0.83-4.51); Lymphocyte % 32.9 % (19-41); Mean Corp Hgb Conc 31.7 g/dL (32-36); Mean Corpuscular Hgb 32.7 pg (27.0-32.0); Mean Corpuscular Volume 103.1 fL (81-99); Mean Platelet Vol. 9.2 fl (6.2-12.0); Monocyte# 0.81 X10^3/uL; Monocyte% 11.8 % (0-10); NRBC Flagged by Analyzer 0 % (0-5); Neutrophil # 3.62 X10^3/uL (2.7-7.7); Neutrophil % 52.6 % (47-70); Platelet Count 323 K/mm3 (150-450); RBC Distribution Width CV 14.1 % (11.6-14.6); RBC Distribution Width SD 53.3 fl (35.1-43.9); Red Blood Count 4.19 M/mm3 (4.2-5.4); White Blood Count 6.9 K/mm3 (4.4-11.0)
[2024-05-16 20:38] VITALS: BP 93/58; PULSE 62; RESP 18; O2SAT 99
[2024-05-16 20:38] LABS: Internal QC Validated? YES +Cl - CLEAR BKGD; Pregnancy, Serum, hCG Quali. NEGATIVE Negative
[2024-05-16 20:43] LABS: ALB/GLOB Ratio 0.8 RATIO (0.9-2.4); AST(SGOT) 18 U/L (15-37); Alanine Aminotransfer ALT/SGPT 24 U/L (13-56); Albumin, Serum 2.8 g/dL (3.2-5.0); Alkaline Phosphatase 173 U/L (45-117); Anion Gap 5 (5-15); BUN 19 mg/dL (7-18); BUN/Creat Ratio 29.9 RATIO (10-20); Calcium,Total 8.6 mg/dL (8.5-10.1); Chloride 110 mmol/L (98-107); Creatinine, Serum 0.64 mg/dL (0.55-1.02); EST Glomerular Filtration Rate 104 mL/min (>60); Est Glom Filt Rate - Afr Amer 126 mL/min (>60); Estimated Creatinine Clearance 65.32 ml/min; Globulin 3.6 g/dL (2.2-4.2); Glucose 103 mg/dL (74-106); Potassium 4.4 mmol/L (3.5-5.1); Protein, Total 6.4 g/dL (6.4-8.2); Sodium Level 139 mmol/L (136-145)
[2024-05-16 20:47] LABS: Mucous, Urine 0 SEEN /hpf (<or=2+); Red Blood Cells-Urine 0 SEEN /hpf (0-5)
[2024-05-16 21:11] LABS: Color, Urine Yellow (Yellow); Glucose, Dipstick Normal (Normal); Ketone-Dipstick Negative (Negative); Leukocyte Esterase-Dipstick 500 /ul (Negative); Nitrite-Dipstick Positive (Negative); Occult Blood-Urine 10 /ul (Negative); Protein-Dipstick 30 mg/dl (Negative); Specific Gravity, Urine 1.025 (1.002-1.030); Urine Clarity Clear (Clear); Urine Urobilinogen 1 mg/dl (Normal)
[2024-05-16 21:17] LABS: Urine Bilirubin Dipstick 1 mg/dL (Negative)
[2024-05-16 21:19] LABS: Bacteria RARE /hpf (None Seen); Squamous Epithelial Cells - UA 0-5 SEEN /hpf (5-10); White Blood Cells 10-25 SEEN /hpf (0-5)
[2024-05-16 22:00] VITALS: PULSE 71; RESP 18; O2SAT 96
--- NOTE | 2024-05-16 22:21 | EDS_ITS ---
HPI History of Present Illness Chief Complaint: Abd Pain Informant: patient Narrative Narrative: Patient is a 53-year-old female presenting with worsening right-sided rib pain, right flank pain and pain now radiating to her abdomen. She also notes that she has been having dysuria and hematuria. Patient states about 2 weeks ago she started having this right-sided rib pain and thought it was from pulling tile. She is prescribed Flexeril and Lidoderm patches. She is not alternating ibuprofen and Tylenol. Her pain has been getting worse. She notes over the past few days she has been having pain with urination and the pain is now moving down to her abdomen. She notes she developed a fever last night of 101 temporally. She has associated nausea. Notes that she has a remote history of kidney infection. She also states that she had pleurisy once and the rib pain feels like pleurisy. Denies any change in bowel movements. Notes the pain is worse when she has a bowel movement. No other complaints or concerns reported at this time. 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 Home Medications ?Medication ?Instructions ?Recorded ?Last Taken ?Type levothyroxine 75 mcg tablet 100 mcg PO DAILY 10/18/17 12/14/18 History omeprazole 40 mg capsule,delayed 40 mg PO BID GERD 12/14/18 12/14/18 History release vortioxetine 10 mg tablet 10 mg PO DAILY depression 12/14/18 12/14/18 History (Trintellix) hydroxyzine pamoate 50 mg capsule 50 mg PO TID PRN PRN Anxiety 07/10/19 Unknown History ondansetron 4 mg disintegrating 4 mg PO Q8H PRN PRN Nausea #7 tabs 01/03/20 Unknown Rx tablet sucralfate 1 gram tablet 1 gm PO 4X/DAY 09/19/20 Unknown History nitrofurantoin 100 mg PO Q12H 5 days #10 caps 12/16/23 Unknown Rx monohydrate/macrocrystals 100 mg capsule (Macrobid) oxycodone-acetaminophen 5 mg-325 1 tab PO Q8H PRN pain 2 days #6 12/16/23 Unknown Rx mg tablet (Percocet) tabs hydrocodone-acetaminophen 5-325mg 1 tab PO Q4H PRN PRN Pain 3 days 01/18/24 Unknown Rx 5mg-325mg #10 TABLETS naproxen 500 mg tablet (Naprosyn) 500 mg PO BID PRN pain #20 tabs 01/18/24 Unknown Rx cephalexin 500 mg capsule 500 mg PO Q12H 7 days #14 caps 05/16/24 Unknown Rx ondansetron HCl 4 mg tablet 4 mg PO Q8H PRN nausea and 05/16/24 Unknown Rx vomiting 5 days #15 tabs oxycodone-acetaminophen 5 mg-325 1 tab PO Q6H PRN pain 3 days #12 05/16/24 Unknown Rx mg tablet (Percocet) tabs phenazopyridine 200 mg tablet 200 mg PO TID PRN pain #6 tabs 05/16/24 Unknown Rx (Pyridium) Allergy/AdvReac Type Severity Reaction Status Date / Time codeine Allergy Other Verified 05/16/24 18:38 meloxicam (From Mobic) Allergy Chest Verified 05/16/24 18:38 tightness Sulfa (Sulfonamide Allergy Itching Verified 05/16/24 18:38 Antibiotics) tramadol Allergy SEIZURES Verified 05/16/24 18:38 morphine AdvReac Other Verified 05/16/24 18:38 Surgical History colon left wrist History of hysterectomy S/P appendectomy S/P cholecystectomy s/p back Social History Smoking Status: Current every day smoker tobacco type: cigarettes ROS ROS ED Constitutional Constitutional ED: Reports chills and fever(s) ENT ENT ED: Denies sore throat Cardiovascular Cardiovascular: Reports chest pain and other Details: Right-sided rib pain Respiratory/Chest Respiratory/Chest: Reports cough; Denies dyspnea Gastrointestinal Gastrointestinal: Reports abdominal pain and nausea; Denies diarrhea or vomiting Genitourinary Genitourinary ED: Reports dysuria and hematuria Musculoskeletal Musculoskeletal: Reports back pain Integumentary Denies rash Neurologic Neurologic: Reports weakness EXAM Physical Exam Const Vital Signs: 05/16/24 18:38 05/16/24 20:38 05/16/24 22:00 Temperature 96.8 F L Temperature Source Temporal Pulse Rate 95 62 71 Respiratory Rate 15 18 18 Blood Pressure 104/78 93/58 L Blood Pressure Mean 86 69 Pulse Ox 97 99 96 Oxygen Delivery Method Room Air Room Air Room Air 05/16/24 23:53 Temperature 97.1 F L Temperature Source Pulse Rate 70 Respiratory Rate 18 Blood Pressure 104/70 Blood Pressure Mean 81 Pulse Ox 99 Oxygen Delivery Method Positive well developed and cachectic General Appearance ED: well developed, cachectic and NAD Nutritional Appearance: cachectic HEENT Reports moist mucous membranes Eyes PERRL and EOMs intact bilaterally Neck supple Chest Wall inspection of chest normal and palpation of chest normal Chest Narrative: Tenderness palpation of the right posterior lower ribs Resp normal respiratory effort and clear to auscultation bilaterally Cardio regular rate and regular rhythm GI GI Narrative: Multiple abdominal scars present. Tender to palpation of the right upper quadrant and right CVA region. There is also tenderness in her suprapubic region Palpation: soft; Negative for guarding Back/Spine General Back: CVA tenderness right Thoracic Spine / Upper Back: Negative for thoracic spinal tenderness Lumbar Spine / Lower Back: Negative for lumbar spinal tenderness Extremity normal to inspection General Extremety ED: Negative for edema General Extremity: Negative for edema Neuro oriented x3 Sensorium / Orientation: alert Motor Exam: Negative for general weakness Psych mental status grossly normal Skin no rashes or lesions noted and no wounds MDM MDM MDM Narrative Medical decision making narrative: Patient is a 53-year-old female presenting with 2 weeks of this right sided rib pain and over the past few days has now developed fever, nausea and urinary symptoms. Protocol labs were obtained which showed a normal CBC and CMP however her urinalysis was consistent with urinary tract infection with 10-25 white blood cells, positive nitrites and rare bacteria. Initially it is concerned that maybe she had a pyelonephritis however she was in a lot of pain in her thorax and states she also had some shortness of breath so I also added on a chest x-ray. that showed right anterior lateral ninth rib fracture with mild displacement. No associated pneumothorax. This reviewed by myself as well as radiology. This is likely the cause of the patient's pain. Patient then tells me that about 2 weeks ago she did have a fall and thinks that is where she might of sustained a rib fracture. Patient was given 500 cc bolus of fluids, dose of Keflex, dose of Dilaudid and Zofran. She is given a Lidoderm patch. On repeat evaluation she states she is feeling much better. Will be discharged home with Pyridium and Keflex to treat for urinary tract infection as well as pain medication and nausea medication to help with her symptom control with her rib fracture. Is also given incentive spirometer and counseled the risk of pneumonia associated with rib fracture. She is encouraged to get Lidoderm patches [id number] to help with her pain. Is encouraged to follow with her primary care doctor. Urine cultures pending at this time. Patient agreeable with this plan of care. At this time I do not think she requires further abdominal imaging. She is discharged home in improved and stable condition. Remained hemodynamically stable in the ER with no increased O2 requirements Lab Data Attestation: I reviewed the patient's lab results. Labs: Laboratory Results - last 24 hr 05/16/24 05/16/24 20:07 20:35 WBC 6.9 RBC 4.19 L Hgb 13.7 Hct 43.2 MCV 103.1 H MCH 32.7 H MCHC 31.7 L RDW Std Deviation 53.3 H RDW Coeff of Krissy 14.1 Plt Count 323 MPV 9.2 Immature Gran % (Auto) 0.300 Neut % (Auto) 52.6 Lymph % (Auto) 32.9 [place] % (Auto) 11.8 H Eos % (Auto) 1.7 Baso % (Auto) 0.7 Absolute Neuts (auto) 3.6 Absolute Lymphs (auto) 2.27 Nucleated RBC % 0 Sodium 139 Potassium 4.4 Chloride 110 H Carbon Dioxide 24.0 Anion Gap 5 BUN 19 H Creatinine 0.64 Estim Creat Clear Calc 65.32 Est GFR (MDRD) Af Amer 126 Est GFR (MDRD) Non-Af 104 BUN/Creatinine Ratio 29.9 H Glucose 103 Calcium 8.6 Total Bilirubin 0.20 Direct Bilirubin 0.10 AST 18 ALT 24 Alkaline Phosphatase 173 H Total Protein 6.4 Albumin 2.8 L Globulin 3.6 Albumin/Globulin Ratio 0.8 L Serum , Qual NEGATIVE Urine Color Yellow Urine Clarity Clear Urine pH 6.0 Ur Specific [place] 1.025 Urine Protein 30 H Urine Glucose (UA) Normal Urine Ketones Negative Urine Occult Blood 10 H Urine Nitrite Positive H Urine Bilirubin 1 H Urine Urobilinogen 1 H Ur Leukocyte Esterase 500 H Urine RBC 0 SEEN Urine WBC 10-25 SEEN Ur Squamous Epith Cells 0-5 SEEN Urine Bacteria RARE Urine Mucus 0 SEEN Radiography Diagnostic Testing: Clinical Impression(s) from Imaging Studies Chest X-Ray 05/16/24 22:40 IMPRESSION: 1. Right anterior lateral ninth rib fracture with mild displacement. 2. Hyperinflated lungs likely secondary to COPD. No focal airspace disease and no pneumothorax. Electronically Signed: Alfredito Ratliff DO at 23:01 EDT , Discharge Plan Triage Chief Complaint: Abd Pain ED Provider: Britney Cameron Dx/Rx/DC Orders Clinical Impression: Right rib fracture, UTI (urinary tract infection) Instructions: ED Rib Fracture, ED Cystitis Female Adult Prescriptions: New cephalexin 500 mg capsule 500 mg PO Q12H 7 Days Qty: 14 0RF phenazopyridine [Pyridium] 200 mg tablet 200 mg PO TID PRN (Reason: pain) Qty: 6 0RF oxycodone-acetaminophen [Percocet] 5-325 mg tablet 1 tab PO Q6H PRN (Reason: pain) 3 Days Qty: 12 0RF ondansetron HCl 4 mg tablet 4 mg PO Q8H PRN (Reason: nausea and vomiting) 5 Days Qty: 15 0RF No Action levothyroxine 75 MCG tablet 100 mcg PO DAILY vortioxetine [Trintellix] 10 MG tablet 10 mg PO DAILY Patient Comments: TAKE ONE TABLET BY MOUTH EVERY DAY omeprazole 40 capsule,delayed release(DR/EC) 40 mg PO BID hydroxyzine pamoate 50 MG capsule 50 mg PO TID PRN PRN (Reason: Anxiety) ondansetron 4 MG tablet 4 mg PO Q8H PRN PRN (Reason: Nausea) Qty: 7 0RF sucralfate 1 GM tablet 1 gm PO 4X/DAY oxycodone-acetaminophen [Percocet] 5-325 mg tablet 1 tab PO Q8H PRN (Reason: pain) 2 Days Qty: 6 0RF nitrofurantoin monohyd/m-cryst [Macrobid] 100 mg capsule 100 mg PO Q12H 5 Days Qty: 10 0RF Rx Instructions: must administer with a meal/food naproxen [Naprosyn] 500 mg tablet 500 mg PO BID PRN (Reason: pain) Qty: 20 0RF hydrocodone-acetaminophen 5-325 mg tablet 1 tab PO Q4H PRN PRN (Reason: Pain) 3 Days Qty: 10 0RF Primary Care Provider: Care Physician,No Primary Referrals: Care Physician,No Primary [Primary Care Provider] - Activity Restrictions/Additional Instructions: You have 1/9 right rib fracture in addition to urinary tract infection. Take all medications as prescribed. Use incentive spirometer to help prevent pneumonia or complications from your rib fracture. Recommend [id number] Lidoderm patches (4% extra strength Salonpas) Print Language: Dutch Disposition Disposition: Home, Self Care Discharge Date/Time: 05/17/24 00:27
[2024-05-16] MEDS: Cephalexin 250 MG Capsule 500 MG PO (22:37)
[2024-05-16] MEDS: Ondansetron 4 MG/2 ML Vial IV (22:37)
[2024-05-16] MEDS: HYDROmorphone 1 MG/ML Syringe 0.5 MG IV (22:37)
[2024-05-16] MEDS: 0.9% Normal Saline (500mL Bag) 500 ML 1000 ML IV (22:37)
--- NOTE | 2024-05-16 22:40 | RAD_ITS ---
EXAM: XR CHEST, 2 VIEWS CLINICAL INDICATION: right sided rib pain TECHNIQUE: Frontal and lateral views of the chest. COMPARISON: 12/25/2016 chest radiograph and CTA chest. FINDINGS: LUNGS AND PLEURAL SPACES: Hyperinflated lungs likely secondary to COPD. No focal airspace disease and no pneumothorax. No effusion. HEART: No significant abnormality. Cardiac silhouette not enlarged. MEDIASTINUM: Central airways and mediastinal contour are unremarkable. BONES/JOINTS: Right anterior lateral ninth rib fracture with mild displacement. Degenerative changes in the spine. SOFT TISSUES: No significant abnormality. VASCULATURE: Atherosclerosis. UPPER ABDOMEN: Status post cholecystectomy. RAD/Chest PA and Lateral IMPRESSION: 1. Right anterior lateral ninth rib fracture with mild displacement. 2. Hyperinflated lungs likely secondary to COPD. No focal airspace disease and no pneumothorax. Electronically Signed: Alfredito Ratliff DO at 23:01 EDT ,
[2024-05-16] MEDS: Lidocaine 5% Patch 1 PATCH TOPICAL (23:49)
[2024-05-16 23:53] VITALS: BP 104/70; PULSE 70; RESP 18; TEMP 36.2; O2SAT 99
== END 2024-05-17 00:27 | disposition home or self-care (01) ==
PROVIDERS: Emergency Provider Emergency Medicine; Visit Provider Emergency Medicine
DX: S22.31XA Fracture of one rib, right side, initial encounter for closed fracture (principal); J44.9 Chronic obstructive pulmonary disease, unspecified; N39.0 Urinary tract infection, site not specified; F17.210 Nicotine dependence, cigarettes, uncomplicated; Z90.49 Acquired absence of other specified parts of digestive tract; W19.XXXA Unspecified fall, initial encounter
CPT/HCPCS: 71046; 80053; 80076; 81001; 84703; 85025; 87086; 87088; 87186; 96361; 96374; 96375; 99284; J7040; A4216; J2405

== ENCOUNTER 2024-07-23 10:19 | Emergency (ER) | payer MEDICAID, SELFPAY ==
[2024-07-23 10:20] VITALS: BP 127/92; PULSE 91; RESP 18; TEMP 37.2; O2SAT 99; BMI 17.9
--- NOTE | 2024-07-23 11:40 | RAD_ITS ---
EXAM: XR CHEST, 2 VIEWS CLINICAL INDICATION: Right anterior lower rib pain. History of rib fracture x2 months. TECHNIQUE: Frontal and lateral views of the chest. COMPARISON: 05/16/2024. FINDINGS: LUNGS AND PLEURAL SPACES: Mild pulmonary hyperinflation. The lungs are clear. No pneumothorax. No effusion. HEART: Unremarkable. Cardiac silhouette not enlarged. MEDIASTINUM: Central airways and mediastinal contour are unremarkable. BONES/JOINTS: Minimal callus formation of the right anterior ninth rib. No acute fracture. SOFT TISSUES: Unremarkable. RAD/Chest PA and Lateral IMPRESSION: 1. No acute findings in the chest. 2. Healing fracture of the right anterior ninth rib. 3. No other additional findings or changes. Electronically Signed: Trell Falcon MD at 12:20 EDT ,
[2024-07-23 12:20] VITALS: BP 129/76; PULSE 78; RESP 18; TEMP 37.2; O2SAT 97
--- NOTE | 2024-07-23 12:40 | ED.VIS.CHEST ---
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 Home Medications ?Medication ?Instructions ?Recorded ?Last Taken ?Type levothyroxine 75 mcg tablet 100 mcg PO DAILY 10/18/17 12/14/18 History omeprazole 40 mg capsule,delayed 40 mg PO BID GERD 12/14/18 12/14/18 History release vortioxetine 10 mg tablet 10 mg PO DAILY depression 12/14/18 12/14/18 History (Trintellix) hydroxyzine pamoate 50 mg capsule 50 mg PO TID PRN PRN Anxiety 07/10/19 Unknown History ondansetron 4 mg disintegrating 4 mg PO Q8H PRN PRN Nausea #7 tabs 01/03/20 Unknown Rx tablet sucralfate 1 gram tablet 1 gm PO 4X/DAY 09/19/20 Unknown History nitrofurantoin 100 mg PO Q12H 5 days #10 caps 12/16/23 Unknown Rx monohydrate/macrocrystals 100 mg capsule (Macrobid) oxycodone-acetaminophen 5 mg-325 1 tab PO Q8H PRN pain 2 days #6 12/16/23 Unknown Rx mg tablet (Percocet) tabs hydrocodone-acetaminophen 5-325mg 1 tab PO Q4H PRN PRN Pain 3 days 01/18/24 Unknown Rx 5mg-325mg #10 TABLETS naproxen 500 mg tablet (Naprosyn) 500 mg PO BID PRN pain #20 tabs 01/18/24 Unknown Rx cephalexin 500 mg capsule 500 mg PO Q12H 7 days #14 caps 05/16/24 Unknown Rx ondansetron HCl 4 mg tablet 4 mg PO Q8H PRN nausea and 05/16/24 Unknown Rx vomiting 5 days #15 tabs oxycodone-acetaminophen 5 mg-325 1 tab PO Q6H PRN pain 3 days #12 05/16/24 Unknown Rx mg tablet (Percocet) tabs phenazopyridine 200 mg tablet 200 mg PO TID PRN pain #6 tabs 05/16/24 Unknown Rx (Pyridium) Allergy/AdvReac Type Severity Reaction Status Date / Time codeine Allergy Other Verified 07/23/24 10:20 meloxicam (From Mobic) Allergy Chest Verified 07/23/24 10:20 tightness Sulfa (Sulfonamide Allergy Itching Verified 07/23/24 10:20 Antibiotics) tramadol Allergy SEIZURES Verified 07/23/24 10:20 morphine AdvReac Other Verified 07/23/24 10:20 Surgical History colon left wrist History of hysterectomy S/P appendectomy S/P cholecystectomy s/p back Social History Smoking Status: Current every day smoker tobacco type: cigarettes EXAM Physical Exam Const Vital Signs: 07/23/24 10:20 07/23/24 12:20 07/23/24 12:20 Temperature 98.9 F 98.9 F Temperature Source Temporal Oral Pulse Rate 91 78 Respiratory Rate 18 18 Respiratory Effort Normal Blood Pressure 127/92 H 129/76 H Blood Pressure Mean 103 93 Pulse Ox 99 97 Oxygen Delivery Method Room Air Room Air [facility] Narrative Medical decision making narrative: HISTORY OF PRESENT ILLNESS: 54-year-old female presents with right-sided rib pain. Notes history of a broken rib is concerned she may have rebroke her rib. Notes she has worsening pain with taking a deep breath. REVIEW OF SYSTEMS: Pertinent positives: Rib pain Pertinent negatives: Chest pain, syncope, dyspnea PHYSICAL EXAM: Nursing triage notes reviewed, Vital signs reviewed Constitutional: please see mdm HENT: MMM Eyes: Pupils equal round and reactive to light, Extraocular muscles intact Neck: No stridor, no JVD, full neck ROM Lungs: Clear to auscultation, No wheezing or rales. No increased work of breathing, no conversational dyspnea, no accessory muscle use, no nasal flaring. No respiratory distress noted Heart: Regular rate and rhythm, No murmurs, No rubs and No gallops, 2+ distal pulses (radial, femoral, posterior tibial) in all extremities Abdomen: Soft, there is no tenderness, rigidity, rebound or guarding, no obvious peritoneal signs, no palpable pulsatile abdominal masses, no auscultated abdominal bruit : No CVAT Extremities: No edema Neuro: No focal neurological deficits, cranial nerves II through XII intact, 5/5 strength in all extremities. Intact sensation to light touch in all extremities, 2+ reflexes bilateral patella tendons. Normal gait. No ataxia. Skin: No rash or lesions noted MEDICAL DECISION MAKING: Chief Complaint: Rib pain External records reviewed: Allergies, medical history, vital signs, current medications reviewed Factors affecting care: n rib fracture Social determinants of health: none History obtained from others: none Consults: none MDM Narrative: Patient was initially hemodynamically stable, afebrile and nontoxic-appearing. Exam without flail chest, bilateral breath sounds, no respiratory distress. I considered the following differential diagnosis: Rib fracture, rib dislocation, pulmonary contusion, pneumothorax, ACS I considered ACS differential etiology patient no gasper chest pain, pressure, sinus symptoms of ACS. No indication for opponens on EKG at this time as her symptoms appear consistent with musculoskeletal etiology. ALL IMAGES (IF OBTAINED) HAVE BEEN PERSONALLY REVIEWED AND INTERPRETED BY MYSELF. Chest x-ray was read and personally reviewed by myself shows no evidence of obvious rib fracture, pneumonia or pneumothorax. The etiology of patient's complaints likely musculoskeletal injury, rib contusion recommended Tylenol ibuprofen and lidocaine patches. Gave incentive spirometer. The patient and/or family, caregivers express understanding. The patient and/or family, caregivers agrees with the plan. Shared decision making: I will have a discussion with the patient and or visitors regarding risk/benefits of further testing or admission. They will be made aware of of the risk/benefits inherent in this decision they will be given the opportunity to voice understanding. Total critical care time today provided was at least 0 minutes. This excludes separately billable procedures. Critical care time (if documented) is secondary to the patient having high probability of clinically significant/life threatening deterioration in the patient's condition which required my urgent intervention. Impression: 1. Right rib pain 2. Acute right rib contusion Dispo: Discharge home This note was generated with [employer] dictation software. It may contain incorrect words, spelling, and punctuation that were not noted in review of the chart prior to signing. Radiography Diagnostic Testing: Clinical Impression(s) from Imaging Studies Chest X-Ray 07/23/24 11:40 IMPRESSION: 1. No acute findings in the chest. 2. Healing fracture of the right anterior ninth rib. 3. No other additional findings or changes. Electronically Signed: Trell Falcon MD at 12:20 EDT , Discharge Plan Triage Chief Complaint: Chest Other ED Provider: Tito White Dx/Rx/DC Orders Instructions: ED Chest Wall Contusion Prescriptions: No Action levothyroxine 75 MCG tablet 100 mcg PO DAILY vortioxetine [Trintellix] 10 MG tablet 10 mg PO DAILY Patient Comments: TAKE ONE TABLET BY MOUTH EVERY DAY omeprazole 40 capsule,delayed release(DR/EC) 40 mg PO BID hydroxyzine pamoate 50 MG capsule 50 mg PO TID PRN PRN (Reason: Anxiety) ondansetron 4 MG tablet 4 mg PO Q8H PRN PRN (Reason: Nausea) Qty: 7 0RF sucralfate 1 GM tablet 1 gm PO 4X/DAY oxycodone-acetaminophen [Percocet] 5-325 mg tablet 1 tab PO Q8H PRN (Reason: pain) 2 Days Qty: 6 0RF nitrofurantoin monohyd/m-cryst [Macrobid] 100 mg capsule 100 mg PO Q12H 5 Days Qty: 10 0RF Rx Instructions: must administer with a meal/food cephalexin 500 mg capsule 500 mg PO Q12H 7 Days Qty: 14 0RF phenazopyridine [Pyridium] 200 mg tablet 200 mg PO TID PRN (Reason: pain) Qty: 6 0RF oxycodone-acetaminophen [Percocet] 5-325 mg tablet 1 tab PO Q6H PRN (Reason: pain) 3 Days Qty: 12 0RF ondansetron HCl 4 mg tablet 4 mg PO Q8H PRN (Reason: nausea and vomiting) 5 Days Qty: 15 0RF naproxen [Naprosyn] 500 mg tablet 500 mg PO BID PRN (Reason: pain) Qty: 20 0RF hydrocodone-acetaminophen 5-325 mg tablet 1 tab PO Q4H PRN PRN (Reason: Pain) 3 Days Qty: 10 0RF Primary Care Provider: Care Physician,No Primary Referrals: Tu Jackson MD [Med Staff - Patient Financial Services Specialist] - Activity Restrictions/Additional Instructions: Thank you for trusting us with your care today! Please take Tylenol (2 pills, 650 mg), ibuprofen (2 pills, 400 mg) every 6 hours as needed for pain and fever control. Please use your provided incentive spirometer at approximately 4 times per hour. Please return to the emergency department if your symptoms change or worsen. Please follow with your primary care physician for further outpatient evaluation and management. Print Language: Guinean Disposition Disposition: Home, Self Care Discharge Date/Time: 07/23/24 13:54
== END 2024-07-23 13:54 | disposition home or self-care (01) ==
LOC: ED 12:50
PROVIDERS: Emergency Provider Emergency Medicine; Visit Provider Emergency Medicine
DX: S20.211A Contusion of right front wall of thorax, initial encounter (principal); X58.XXXA Exposure to other specified factors, initial encounter; S22.31XD Fracture of one rib, right side, subsequent encounter for fracture with routine healing; F17.210 Nicotine dependence, cigarettes, uncomplicated; Z79.890 Hormone replacement therapy; Z79.899 Other long term (current) drug therapy; Z90.710 Acquired absence of both cervix and uterus; Z90.49 Acquired absence of other specified parts of digestive tract
CPT/HCPCS: 71046; 99282

== ENCOUNTER 2024-11-16 04:17 | Emergency (ER) | payer MEDICAID, SELFPAY ==
[2024-11-16 04:19] VITALS: BP 117/84; PULSE 87; RESP 18; TEMP 36.7; O2SAT 92; BMI 14.0
[2024-11-16 04:46] VITALS: BP 129/90; PULSE 80; RESP 18; O2SAT 99
--- NOTE | 2024-11-16 04:46 | CT_ITS ---
PROCEDURE: Noncontrast CT of the lumbar spine. REASON FOR EXAM: Right thigh pain extending to the right hip for 2 weeks. History of multiple spinal surgeries. TECHNIQUE: Contiguous unenhanced axial CT images were obtained through the lumbar spine. Sagittal and coronal reformats were created. COMPARISON: Lumbar spine radiographs 12/16/2023. FINDINGS: The study assumes a presence of 5 lumbar type, [id number] vertebral bodies. The bones are osteopenic. Grade 1 anterolisthesis of L4 relative to L5. No acute lumbar vertebral body fracture is demonstrated. The posterior elements appear intact. Grossly intact bilateral intrapedicular screws and posterior fusion rods at L5-S1. Moderate degenerative disc disease at L3-4 and L5-S1, to a severe degree at L4- 5. Moderate degenerative facet changes. Included lower lungs are clear. Included paraspinal soft tissues are unremarkable. There are surgical clips in the gallbladder fossa. The common duct measures 1.4 cm. The included portions of the pelvis, sacrum, and SI joints are unremarkable. The included lower thoracic intervertebral disc spaces are unremarkable. There is a moderate amount of stool in the colon. Tiny hiatal hernia. L1-2: Mild disc bulge, without focal disc herniation or significant central spinal canal narrowing. No significant neural foraminal narrowing. Mild degenerative facet changes. L2-3: Mild disc bulge flattens the ventral thecal sac, without focal disc herniation or significant central spinal canal narrowing. Mild bilateral neural foraminal narrowing. Mild degenerative facet changes. L3-4: A diffuse disc bulge along with ligamentum flavum and facet hypertrophy causes mild central spinal canal narrowing. No focal disc herniation. Moderate right and [id number] left neural foraminal narrowing. Mild degenerative facet changes. L4-5: A diffuse disc bulge along with ligamentum flavum and facet hypertrophy cause moderate to severe central spinal canal narrowing. Central spinal canal detail is limited. Severe bilateral neural foraminal narrowing and moderate degenerative facet changes. L5-S1: Posterior decompression at this level. Streak artifact from surgical hardware limits evaluation of the central spinal canal. Moderate bilateral neural foraminal narrowing. Moderate degenerative facet changes. CT/Spine Lumbar without Contrast IMPRESSION: Osteopenia. No acute bony abnormality of the lumbar spine. Intact surgical hardware and posterior decompression at the L5-S1 level. There is grade 1 anterolisthesis of L4 relative to L5. There is multifactorial moderate to severe central spinal canal narrowing at th e L4-5 level. Multilevel degenerative facet changes and multilevel neural foraminal narrowing as described level by level above. The common duct measures 1.4 cm, which may be due to post cholecystectomy jaclyn guardado. Suggest correlation with liver function tests. Tiny hiatal hernia. Moderate stool in the colon. One or more dose reduction techniques were used (e.g., Automated exposure contr ol, adjustment of the mA and/or kV according to patient size, use of iterative reconstruction technique). Reading Location: [facility]
[2024-11-16] MEDS: dexAMETHasone 10 MG/ML Vial IV (04:56)
[2024-11-16] MEDS: Ondansetron 4 MG/2 ML Vial IV (04:56)
[2024-11-16] MEDS: HYDROmorphone 0.5 MG/0.5 ML SYRINGE IV (04:57)
[2024-11-16] MEDS: diazePAM 2 MG Tablet PO (04:57)
[2024-11-16 05:06] LABS: Absolute Lymphocyte Count 0.66 X10^3/uL (0.83-4.51); Absolute Neutrophil Count 7.1 X10^3/uL (2.0-7.7); Basophil# 0.07 X10^3/uL; Basophil% 0.8 % (0-1); Eosinophil# 0.21 X10^3/uL; Eosinophils% 2.5 % (0-5); Hematocrit 34.6 % (37-47); Hemoglobin 11.1 g/dL (12.0-15.0); Lymphocyte # 0.66 X10^3/ul (0.83-4.51); Mean Corp Hgb Conc 32.1 g/dL (32-36); Mean Corpuscular Hgb 34.8 pg (27.0-32.0); Mean Corpuscular Volume 108.5 fL (81-99); Mean Platelet Vol. 9.1 fl (6.2-12.0); Monocyte# 0.24 X10^3/uL; Monocyte% 2.9 % (0-10); NRBC Flagged by Analyzer 0 % (0-5); Neutrophil # 7.09 X10^3/uL (2.7-7.7); Neutrophil % 85.4 % (47-70); Platelet Count 314 K/mm3 (150-450); RBC Distribution Width CV 14.1 % (11.6-14.6); RBC Distribution Width SD 56.5 fl (35.1-43.9); Red Blood Count 3.19 M/mm3 (4.2-5.4); White Blood Count 8.3 K/mm3 (4.4-11.0)
--- NOTE | 2024-11-16 05:15 | RAD_ITS ---
PROCEDURE: Pelvis and right hip radiographs, three views REASON FOR EXAM: Pain TECHNIQUE: Three views of the pelvis and right hip were obtained. COMPARISON: Lumbar spine CT from the same day. Pelvis and right hip radiographs 01/18/2024. FINDINGS: Three views of the pelvis and right hip were obtained. There are degenerative and postsurgical changes in the lower lumbar spine. The bones are osteopenic. No displaced pelvic or proximal femur fracture. Foci of sclerosis or calcifications projecting over the right iliac wing are similar. No acute fracture or dislocation of the right hip. Grossly intact surgical hardware projects over the L5-S1 level. RAD/HIP, UNI W/ Pelvis 2-3 Views IMPRESSION: Osteopenia. No acute bony abnormality of the pelvis/right hip. Mild degenerative changes of the hip joints. Reading Location: [facility]
[2024-11-16 05:20] LABS: Anion Gap 7 (5-15); BUN 20 mg/dL (7-18); BUN/Creat Ratio 28.4 RATIO (10-20); CRP < 2.90 mg/L (0.0-3.0); Calcium,Total 8.5 mg/dL (8.5-10.1); Chloride 108 mmol/L (98-107); EST Glomerular Filtration Rate 92 mL/min (>60); Est Glom Filt Rate - Afr Amer 111 mL/min (>60); Estimated Creatinine Clearance 55.55 ml/min; Glucose 105 mg/dL (74-106); Magnesium 2.3 mg/dL (1.6-2.6); Potassium 4.3 mmol/L (3.5-5.1); Sodium Level 140 mmol/L (136-145)
--- NOTE | 2024-11-16 06:04 | EX.ED.DYSGE1 ---
HPI History of Present Illness Chief Complaint: Lower Extremity Injury Informant: patient Narrative Narrative: Patient is a 54-year-old female who states for the past 10 days to 2 weeks she has been having right hip/low back pain that radiates into her right thigh. She denies any recent trauma or excessive activity. She denies any loss of bowel or bladder control or IV drug use. She states she has been trying [id number] medications without symptom improvement. 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 Home Medications ?Medication ?Instructions ?Recorded ?Last Taken ?Type levothyroxine 75 mcg tablet 100 mcg PO DAILY 10/18/17 12/14/18 History omeprazole 40 mg capsule,delayed 40 mg PO BID GERD 12/14/18 12/14/18 History release vortioxetine 10 mg tablet 10 mg PO DAILY depression 12/14/18 12/14/18 History (Trintellix) cyclobenzaprine 10 mg tablet 10 mg PO TID PRN muscle spasm #30 11/16/24 Unknown Rx tabs oxycodone 5 mg tablet 5 mg PO Q6H PRN pain 3 days #12 11/16/24 Unknown Rx tabs prednisone 20 mg tablet 40 mg (2 x 20 mg) PO DAILY 5 days 11/16/24 Unknown Rx #10 tabs Allergy/AdvReac Type Severity Reaction Status Date / Time codeine Allergy Other Verified 11/16/24 04:18 meloxicam (From Mobic) Allergy Chest Verified 11/16/24 04:18 tightness Sulfa (Sulfonamide Allergy Itching Verified 11/16/24 04:18 Antibiotics) tramadol Allergy SEIZURES Verified 11/16/24 04:18 morphine AdvReac Other Verified 11/16/24 04:18 Surgical History colon left wrist History of hysterectomy S/P appendectomy S/P cholecystectomy s/p back Social History Smoking Status: Current every day smoker tobacco type: cigarettes ROS ROS ED Constitutional Constitutional ED: Denies chills or fever(s) ENT ENT ED: Denies sore throat Cardiovascular Cardiovascular: Denies chest pain Respiratory/Chest Respiratory/Chest: Denies cough or dyspnea Gastrointestinal Gastrointestinal: Denies abdominal pain, diarrhea, nausea or vomiting Genitourinary Genitourinary ED: Denies dysuria, hematuria or urinary frequency Musculoskeletal Musculoskeletal: Reports back pain and other Details: Positive right leg/thigh pain Integumentary Denies Abrasions or rash Neurologic Neurologic: Reports paresthesias and weakness; Denies headache(s) Hematologic/Lymphatic Hematologic/Lymphatic: Denies easy bleeding or easy bruising EXAM Physical Exam Const Vital Signs: 11/16/24 04:19 11/16/24 04:46 Temperature 98.0 F Temperature Source Oral Pulse Rate 87 80 Respiratory Rate 18 18 Blood Pressure 117/84 H 129/90 H Blood Pressure Mean 95 103 Pulse Ox 92 99 Oxygen Delivery Method Room Air Room Air Positive well nourished and well developed General Appearance ED: well developed; Negative for pallor HEENT HEENT Narrative: Normocephalic atraumatic Eyes PERRL and EOMs intact bilaterally General Eye ED: Negative for scleral icterus Neck supple Resp normal respiratory effort and clear to auscultation bilaterally Cardio regular rate and regular rhythm Back/Spine Back/Spine Narrative: No bony deformity or step-off of the thoracic or lumbar spine no midline tenderness to palpation No saddle anesthesia. No clonus or Babinski. Patellar reflex is plus 1 out of 4 on the right and plus 2 out of 4 on the left. Positive right straight leg raise at approximately 45 degrees. Compartments are soft and compressible going against compartment syndrome No overlying erythema or warmth to suggest secondary infectious process. Extremity Extremity Narrative: There is pain with passive and active motion of the right hip without bony deformity or joint effusion or overlying soft tissue skin changes Neuro oriented x3 and CN's II-XII intact bilaterally Sensorium / Orientation: alert Psych mental status grossly normal Skin no rashes or lesions noted and no wounds General Skin Exam: Negative for jaundice or pallor MDM MDM MDM Narrative Medical decision making narrative: Patient arrived to the ER with stable vitals. She reported increasing pain in the right low back that radiated into the right thigh. Differential diagnosis is for musculoskeletal low back pain from lumbosacral strain or piriformis syndrome. There is also concern about spinal stenosis or a ruptured disc. Patient also have bursitis or be developing a potential septic joint. Secondary to this patient blood work was obtained. Patient's white count is normal at 8.3 there is no left shift that she does not have elevation to her CRP and this goes against an infectious process. X-ray showed no bony deformity to suggest a fracture or dislocation and there is no moth-eaten appearance to the bone to suggest osteomyelitis. CT scan showed hardware to be intact and in place but patient had severe spinal stenosis which would correlate with potential nerve's compression as the cause of her recurring/worsening symptoms. However at this time she is neurovascularly intact and without signs of compartment syndrome or infection there is no need for emergent orthopedic/spine surgery consultation and she be discharged home with symptomatic care History & Record Review Discussion w/independent historian: Patient Lab Data Attestation: I reviewed the patient's lab results. Labs: Laboratory Results - last 24 hr 11/16/24 04:58 WBC 8.3 RBC 3.19 L Hgb 11.1 L Hct 34.6 L MCV 108.5 H MCH 34.8 H MCHC 32.1 RDW Std Deviation 56.5 H RDW Coeff of Krissy 14.1 Plt Count 314 MPV 9.1 Immature Gran % (Auto) 0.400 Neut % (Auto) 85.4 H Lymph % (Auto) 8.0 L Caroline % (Auto) 2.9 Eos % (Auto) 2.5 Baso % (Auto) 0.8 Absolute Neuts (auto) 7.1 Absolute Lymphs (auto) 0.66 L Nucleated RBC % 0 Sodium 140 Potassium 4.3 Chloride 108 H Carbon Dioxide 25.0 Anion Gap 7 BUN 20 H Creatinine 0.70 Estim Creat Clear Calc 55.55 Est GFR (MDRD) Af Amer 111 Est GFR (MDRD) Non-Af 92 BUN/Creatinine Ratio 28.4 H Glucose 105 Calcium 8.5 Magnesium 2.3 C-React Prot Ext Range < 2.90 Radiography Diagnostic Testing: Clinical Impression(s) from Imaging Studies Lumbar Spine CT 11/16/24 04:46 IMPRESSION: Osteopenia. No acute bony abnormality of the lumbar spine. Intact surgical hardware and posterior decompression at the L5-S1 level. There is grade 1 anterolisthesis of L4 relative to L5. There is multifactorial moderate to severe central spinal canal narrowing at the L4-5 level. Multilevel degenerative facet changes and multilevel neural foraminal narrowing as described level by level above. The common duct measures 1.4 cm, which may be due to post cholecystectomy change. Suggest correlation with liver function tests. Tiny hiatal hernia. Moderate stool in the colon. One or more dose reduction techniques were used (e.g., Automated exposure control, adjustment of the mA and/or kV according to patient size, use of iterative reconstruction technique). Reading Location: [facility] Hip/Pelvis X-Ray 11/16/24 05:15 IMPRESSION: Osteopenia. No acute bony abnormality of the pelvis/right hip. Mild degenerative changes of the hip joints. Reading Location: [facility] Right hip x-ray with 1 view pelvis as interpreted by the emergency medicine physician reveals mild osteoarthritic changes without acute fracture or dislocation Discharge Plan Triage Chief Complaint: Lower Extremity Injury ED Provider: Konrad Crouch Dx/Rx/DC Orders Clinical Impression: Degenerative disc disease, Spinal stenosis at L4-L5 level, Hypothyroidism, Depression Instructions: Low Back Leg Pain Causes, ED Degenerative Disk Disease Prescriptions: New cyclobenzaprine 10 mg tablet 10 mg PO TID PRN (Reason: muscle spasm) Qty: 30 0RF prednisone 20 mg tablet 40 mg PO DAILY 5 Days Qty: 10 0RF oxycodone 5 mg tablet 5 mg PO Q6H PRN (Reason: pain) 3 Days Qty: 12 0RF No Action levothyroxine 75 MCG tablet 100 mcg PO DAILY Trintellix 10 MG tablet 10 mg PO DAILY Patient Comments: TAKE ONE TABLET BY MOUTH EVERY DAY omeprazole 40 capsule,delayed release(DR/EC) 40 mg PO BID Primary Care Provider: Gerri Gonzales Referrals: You Luis MD [Non-Staff] - 3-5 Days Gerri Gonzales MD [Primary Care Provider] - Activity Restrictions/Additional Instructions: Please follow-up with your neurosurgeon to discuss any potential treatment options for your degenerative disc disease and spinal stenosis. In the meantime take the medications from the ER as directed to help control symptoms and return to the hospital should you have any further concern Print Language: Hungarian Disposition Disposition: Home, Self Care Discharge Date/Time: 11/16/24 06:29
[2024-11-16] MEDS: oxyCODONE 5 MG Tablet 10 MG PO (06:23)
[2024-11-16 06:27] VITALS: BP 111/84; PULSE 87; RESP 16; TEMP 36.8; O2SAT 96
== END 2024-11-16 06:29 | disposition home or self-care (01) ==
PROVIDERS: Emergency Provider Emergency Medicine; PCP Student in an Organized Health Care Education/Training Program; Visit Provider Emergency Medicine
DX: M48.061 Spinal stenosis, lumbar region without neurogenic claudication (principal); E03.9 Hypothyroidism, unspecified; F32.A Depression, unspecified; M54.50 Low back pain, unspecified; F17.210 Nicotine dependence, cigarettes, uncomplicated; Z79.890 Hormone replacement therapy; Z79.899 Other long term (current) drug therapy; Z90.49 Acquired absence of other specified parts of digestive tract
CPT/HCPCS: 72131; 73502; 80048; 83735; 85025; 86140; 96374; 96375; 99284; J2405

== ENCOUNTER 2024-11-29 08:54 | Emergency (ER) | payer MEDICAID, SELFPAY ==
[2024-11-29 08:54] VITALS: BP 130/97; PULSE 73; RESP 16; TEMP 35.9; O2SAT 100; BMI 14.7
--- NOTE | 2024-11-29 09:10 | MRI_ITS ---
PROCEDURE: MRI lumbar spine without IV contrast REASON FOR EXAM: Pain TECHNIQUE: Multisequence multiplanar MR images of the spine were obtained without the administration of intravenous contrast. COMPARISON: 11/16/2024 FINDINGS: Posterior fusion hardware at L5-S1. Degenerative grade 1 anterolisthesis of L4- 5. Mild S-type lumbar scoliosis. Severe disc space narrowing, vacuum disc phenomenon, mild erosions and degenerative endplate changes at L4-5 eccentric to the right. Bone marrow signal is otherwise within normal limits and without evidence of acute fracture. Conus medullaris is intact and terminates at L1. No paraspinal mass. Paraspinal muscle atrophy. Moderate dilation of the intra and extrahepatic biliary ducts. L1-2: Minimal posterior disc bulge. No significant spinal stenosis or foraminal narrowing. L2-3: Minimal posterior disc bulge. Mild bilateral facet arthrosis. No significant spinal stenosis or foraminal narrowing. L3-4: Posterior disc bulge with annular fissure. Moderate bilateral facet arthrosis. Mild ligamentum flavum hypertrophy. Borderline mild spinal stenosis. Mild right and moderate left foraminal narrowing. L4-5: Degenerative grade 1 anterolisthesis with uncovering of the posterior disc. Mild superimposed posterior disc bulge. Moderate/severe bilateral facet arthrosis. Mild ligamentum flavum hypertrophy. Mild/moderate spinal stenosis. Severe right and moderate left foraminal narrowing. L5-S1: Small posterior disc osteophyte complex. Small annular fissure. Moderate bilateral facet arthrosis. No significant spinal stenosis or foraminal narrowing. MRI/Spine Lumbar (Routine) IMPRESSION: 1. Acquired severe right foraminal narrowing at L4-5. 2. Acquired mild and mild/moderate spinal stenosis at L3-4 and L4-5 respectivel y. 3. Degenerative grade 1 anterolisthesis of L4-5 with severe degenerative disc d isease and degenerative endplate changes as above. 4. Moderate biliary ductal dilation. Please correlate. Reading Location: [facility]
--- NOTE | 2024-11-29 09:13 | EX.ED.DYSGE1 ---
HPI History of Present Illness Chief Complaint: Lower Extremity Injury Informant: patient Narrative Narrative: 54-year-old female presenting to the emergency room with low back, right hip, proximal right thigh pain. 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 She states that several months ago she was lifting and began to have discomfort in her back. More pronounced over the past several weeks has been pain in the proximal right thigh radiating posteriorly into the buttock and into the low back. She was seen in the emergency department 13 days ago. She has had prior lumbar surgery by Dr. You Luis. The patient states that since her emergency department visit she has been unable to follow-up yet. She has an appointment with orthopedics in December. She states that she has not been able to schedule an appointment with her back surgeon. She states that she has developed rectal incontinence now having to wear a diaper. She states that it hurts my thigh when I urinate. No fevers. She notes that she cannot move the right leg unless she utilizes her arms. She has not noticed a foot drop but feels that the foot is weaker. 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 Home Medications ?Medication ?Instructions ?Recorded ?Last Taken ?Type levothyroxine 75 mcg tablet 100 mcg PO DAILY 10/18/17 12/14/18 History omeprazole 40 mg capsule,delayed 40 mg PO BID GERD 12/14/18 12/14/18 History release vortioxetine 10 mg tablet 10 mg PO DAILY depression 12/14/18 12/14/18 History (Trintellix) cyclobenzaprine 10 mg tablet 10 mg PO TID PRN muscle spasm #30 11/16/24 Unknown Rx tabs oxycodone 5 mg tablet 5 mg PO Q6H PRN pain 3 days #12 11/16/24 Unknown Rx tabs prednisone 20 mg tablet 40 mg (2 x 20 mg) PO DAILY 5 days 11/16/24 Unknown Rx #10 tabs cyclobenzaprine 10 mg tablet 10 mg PO TID PRN Muscle Spasm #20 11/29/24 Unknown Rx TABLETS oxycodone 10 mg tablet 10 mg PO TID PRN pain 7 days #20 11/29/24 Unknown Rx tabs prednisone 20 mg tablet See Rx Instructions .Route 11/29/24 Unknown Rx .COMPLEX #24 tabs Allergy/AdvReac Type Severity Reaction Status Date / Time codeine Allergy Other Verified 11/29/24 08:55 meloxicam (From Mobic) Allergy Chest Verified 11/29/24 08:55 tightness Sulfa (Sulfonamide Allergy Itching Verified 11/29/24 08:55 Antibiotics) tramadol Allergy SEIZURES Verified 11/29/24 08:55 morphine AdvReac Other Verified 11/29/24 08:55 Surgical History colon left wrist History of hysterectomy S/P appendectomy S/P cholecystectomy s/p back Social History Smoking Status: Current every day smoker tobacco type: cigarettes ROS ROS ED Constitutional Constitutional ED: Denies chills or weight loss Eyes Eyes: Denies change in vision or diplopia ENT ENT ED: Denies ear pain, rhinorrhea or sore throat Cardiovascular Cardiovascular: Denies chest pain, orthopnea, palpitations or racing heartbeat Respiratory/Chest Respiratory/Chest: Denies cough, dyspnea or orthopnea Gastrointestinal Gastrointestinal: Denies abdominal pain, diarrhea, nausea or vomiting Genitourinary Genitourinary ED: Denies dysuria, hematuria or urinary frequency Musculoskeletal Musculoskeletal: Reports back pain and other Details: Right hip pain ; Denies arthralgias, myalgias or neck pain Integumentary Denies abscess or rash Neurologic Neurologic: Reports paresthesias RLE, weakness and other; Denies headache(s) Psychiatric Psychiatric: Reports depression; Denies anxiety, suicidal ideation or suicidal thoughts Endocrine Endocrinology: Denies polydipsia, polyphagia or polyuria Allergic/Immunologic Allergic/Immunologic ED: Denies mouth swelling, tongue swelling or urticaria EXAM Physical Exam Const Vital Signs: 11/29/24 08:54 11/29/24 12:56 Temperature 96.7 F L Temperature Source Temporal Pulse Rate 73 85 Respiratory Rate 16 16 Blood Pressure 130/97 H 111/67 Blood Pressure Mean 108 81 Pulse Ox 100 98 Oxygen Delivery Method Room Air Room Air Positive well nourished and well developed General Appearance ED: well developed HEENT Reports normocephalic, head/scalp atraumatic and moist mucous membranes Eyes PERRL and EOMs intact bilaterally Neck no lymphadenopathy, supple and no JVD Resp normal respiratory effort and clear to auscultation bilaterally Cardio regular rate, regular rhythm and no murmurs GI normal to inspection, nondistended, normoactive bowel sounds and non-tender Palpation: soft Narrative: Rectal examination was performed in the accompaniment of female nurse. Patient states that she cannot tighten her pelvic floor muscles. There is still rectal tone. Normal sensation. Back/Spine no CVA tenderness and normal ROM Back/Spine Narrative: There is a healed lower back incision. No skin erythema. Extremity Extremity Narrative: Patient states she cannot lift her thigh up off the bed and then utilizes her arms to pull the leg up. She can dorsiflex and plantarflex the toes/foot. She notes decreased sensation of the thigh compared to the left. General Extremety ED: Negative for edema General Extremity: Negative for edema Neuro oriented x3 and CN's II-XII intact bilaterally Sensorium / Orientation: alert Motor Exam: strength 5/5 throughout Psych Mood & Affect: depressed and tearful Skin no rashes or lesions noted and no wounds MDM MDM MDM Narrative Medical decision making narrative: Differential diagnosis includes but not limited to degenerative disc disease lumbar radiculopathy cauda equina abscess tendon injury bursitis My independent interpretation of plain films of the right hip is no acute findings. White count is 8.9 hemoglobin is 12 platelet count is 242 normal coags CRP minimally elevated 16.3 ESR is normal at 3 MRI of the lumbar spine was obtained. This demonstrates severe right foraminal narrowing at L4-L5 mild to moderate spinal stenosis at L3-L4 and L4-L5. Please see radiologist read for full details. Patient has received multiple doses of pain medication as well as Ativan for the MRI. I spoke with the patient with the above results. We talked about hospitalization. She would prefer not to be hospitalized. I stressed the importance of following up with a back surgeon she notes understanding. She does not know if a prior back surgeon is still practicing in the [facility]. I will write for oxycodone, prednisone and Flexeril. Patient states that Flexeril were prednisone significantly helps her. History & Record Review Discussion w/independent historian: Patient Additional record(s) reviewed:: Prior ED visit Lab Data Attestation: I reviewed the patient's lab results. Labs: Laboratory Results - last 24 hr 11/29/24 09:26 WBC 8.9 RBC 3.51 L Hgb 12.0 Hct 37.8 MCV 107.7 H MCH 34.2 H MCHC 31.7 L RDW Std Deviation 53.5 H RDW Coeff of Krissy 13.3 Plt Count 242 MPV 9.2 Immature Gran % (Auto) 0.300 Neut % (Auto) 70.5 H Lymph % (Auto) 16.4 L [place] % (Auto) 10.3 H Eos % (Auto) 2.1 Baso % (Auto) 0.4 Absolute Neuts (auto) 6.3 Absolute Lymphs (auto) 1.46 Nucleated RBC % 0 ESR 3 PT 14.0 INR 1.1 APTT 29.5 Sodium 139 Potassium 3.3 L Chloride 109 H Carbon Dioxide 25.0 Anion Gap 6 BUN 19 H Creatinine 0.70 Estim Creat Clear Calc 58.31 Est GFR (MDRD) Af Amer 113 Est GFR (MDRD) Non-Af 93 BUN/Creatinine Ratio 27.3 H Glucose 83 Calcium 8.7 C-React Prot Ext Range 16.30 H Radiography Diagnostic Testing: Clinical Impression(s) from Imaging Studies Lumbar Spine MRI 11/29/24 09:10 IMPRESSION: 1. Acquired severe right foraminal narrowing at L4-5. 2. Acquired mild and mild/moderate spinal stenosis at L3-4 and L4-5 respectively. 3. Degenerative grade 1 anterolisthesis of L4-5 with severe degenerative disc disease and degenerative endplate changes as above. 4. Moderate biliary ductal dilation. Please correlate. Reading Location: [facility] Hip/Pelvis X-Ray 11/29/24 09:44 IMPRESSION: NEGATIVE SINGLE VIEW HIP [facility] Dis[facility] Triage Chief Complaint: Lower Extremity Injury ED Provider: Chas Naranjo Dx/Rx/DC Orders Clinical Impression: Acute lumbar radiculopathy, Acute hip pain Instructions: Low Back Leg Pain Causes, ED Sciatica Prescriptions: New cyclobenzaprine 10 mg tablet 10 mg PO TID PRN (Reason: Muscle Spasm) Qty: 20 0RF prednisone 20 mg tablet See Rx Instructions .ROUTE .COMPLEX Qty: 24 0RF Rx Instructions: 3 tabs p.o. daily x 4 days then 2 tabs p.o. daily x 4 days then 1 tab p.o. daily x 4 days oxycodone 10 mg tablet 10 mg PO TID PRN (Reason: pain) 7 Days Qty: 20 0RF No Action levothyroxine 75 MCG tablet 100 mcg PO DAILY Trintellix 10 MG tablet 10 mg PO DAILY Patient Comments: TAKE ONE TABLET BY MOUTH EVERY DAY omeprazole 40 capsule,delayed release(DR/EC) 40 mg PO BID cyclobenzaprine 10 mg tablet 10 mg PO TID PRN (Reason: muscle spasm) Qty: 30 0RF prednisone 20 mg tablet 40 mg PO DAILY 5 Days Qty: 10 0RF oxycodone 5 mg tablet 5 mg PO Q6H PRN (Reason: pain) 3 Days Qty: 12 0RF Primary Care Provider: Gerri Gonzales Referrals: Ryan Zavaleta MD [Med Staff - Active Staff] - As soon as possible Gerri Gonzales MD [Primary Care Provider] - Activity Restrictions/Additional Instructions: I feel strongly that you should need to see a back surgeon on the further evaluation of your MRI and symptoms. You may see Dr. Zavaleta above or the back surgeon of your choice. Print Language: Nepali Disposition Disposition: Home, Self Care
[2024-11-29 09:39] LABS: Erythrocyte Sedimentation Rate 3 mm/hr (0-30)
[2024-11-29 09:43] LABS: Absolute Lymphocyte Count 1.46 X10^3/uL (0.83-4.51); Absolute Neutrophil Count 6.3 X10^3/uL (2.0-7.7); Basophil# 0.04 X10^3/uL; Basophil% 0.4 % (0-1); Eosinophil# 0.19 X10^3/uL; Eosinophils% 2.1 % (0-5); Hematocrit 37.8 % (37-47); Lymphocyte # 1.46 X10^3/ul (0.83-4.51); Lymphocyte % 16.4 % (19-41); Mean Corp Hgb Conc 31.7 g/dL (32-36); Mean Corpuscular Hgb 34.2 pg (27.0-32.0); Mean Corpuscular Volume 107.7 fL (81-99); Mean Platelet Vol. 9.2 fl (6.2-12.0); Monocyte# 0.92 X10^3/uL; Monocyte% 10.3 % (0-10); NRBC Flagged by Analyzer 0 % (0-5); Neutrophil # 6.28 X10^3/uL (2.7-7.7); Neutrophil % 70.5 % (47-70); Platelet Count 242 K/mm3 (150-450); RBC Distribution Width CV 13.3 % (11.6-14.6); RBC Distribution Width SD 53.5 fl (35.1-43.9); Red Blood Count 3.51 M/mm3 (4.2-5.4); White Blood Count 8.9 K/mm3 (4.4-11.0)
--- NOTE | 2024-11-29 09:44 | RAD_ITS ---
PROCEDURE: HIP, UNI W/ PELVIS 2-3 VIEWS REASON FOR EXAM: Right hip pain. TECHNIQUE: One three views of the right hip COMPARISON: Comparison is made with prior study dated January 18, 2024. FINDINGS: No fracture. No suspicious bone lesion. Normal alignment. Soft tissues are unremarkable. RAD/HIP, UNI W/ Pelvis 2-3 Views IMPRESSION: NEGATIVE SINGLE VIEW HIP Reading Location: [facility]
[2024-11-29 09:53] LABS: International Normalized Ratio 1.1
[2024-11-29 09:54] LABS: Partial Thromboplast Time 29.5 Seconds (24.1-36.2)
[2024-11-29 09:55] LABS: Anion Gap 6 (5-15); BUN 19 mg/dL (7-18); BUN/Creat Ratio 27.3 RATIO (10-20); Calcium,Total 8.7 mg/dL (8.5-10.1); Chloride 109 mmol/L (98-107); EST Glomerular Filtration Rate 93 mL/min (>60); Est Glom Filt Rate - Afr Amer 113 mL/min (>60); Estimated Creatinine Clearance 58.31 ml/min; Glucose 83 mg/dL (74-106); Potassium 3.3 mmol/L (3.5-5.1); Sodium Level 139 mmol/L (136-145)
[2024-11-29] MEDS: HYDROmorphone 1 MG/ML Syringe IV ×3 (10:04→14:36)
[2024-11-29 12:56] VITALS: BP 111/67; PULSE 85; RESP 16; O2SAT 98
[2024-11-29] MEDS: Ondansetron 4 MG/2 ML Vial IV (15:00)
== END 2024-11-29 15:38 | disposition home or self-care (01) ==
PROVIDERS: Emergency Provider Emergency Medicine; PCP Student in an Organized Health Care Education/Training Program; Visit Provider Emergency Medicine
DX: M48.061 Spinal stenosis, lumbar region without neurogenic claudication (principal); M54.16 Radiculopathy, lumbar region; R15.9 Full incontinence of feces; F17.210 Nicotine dependence, cigarettes, uncomplicated; Z79.890 Hormone replacement therapy; Z79.899 Other long term (current) drug therapy; Z90.49 Acquired absence of other specified parts of digestive tract; Z90.710 Acquired absence of both cervix and uterus
CPT/HCPCS: 72148; 73502; 80048; 85025; 85610; 85652; 85730; 86140; 96374; 96375; 96376; 99283; A4216; J2405

== ENCOUNTER → 2025-02-24 | Outpatient (CLI) | payer MEDICAID, SELFPAY ==
--- NOTE | 2025-03-04 13:59 | EKG12_ITS ---
Test Reason : PREOP Blood Pressure : */* mmHG Vent. Rate : 81 BPM Atrial Rate : 81 BPM P-R Int : 130 ms QRS Dur : 86 ms QT Int : 390 ms P-R-T Axes : 84 89 74 degrees QTcB Int : 453 ms Normal sinus rhythm Biatrial enlargement Abnormal ECG Confirmed by Vernon Thomas ([id number]), art editor REINA LIN ([id number]) on 03/10/2025 12:53:37 PM Referred By: Ryan Zavaleta Confirmed By: Vernon Thomas
[2025-03-04 15:01] LABS: Absolute Lymphocyte Count 2.06 X10^3/uL (0.83-4.51); Absolute Neutrophil Count 3.8 X10^3/uL (2.0-7.7); Basophil# 0.08 X10^3/uL; Basophil% 1.2 % (0-1); Eosinophil# 0.15 X10^3/uL; Eosinophils% 2.2 % (0-5); Hematocrit 42.2 % (37-47); Hemoglobin 13.7 g/dL (12.0-15.0); Lymphocyte # 2.06 X10^3/ul (0.83-4.51); Lymphocyte % 30.3 % (19-41); Mean Corp Hgb Conc 32.5 g/dL (32-36); Mean Corpuscular Hgb 32.9 pg (27.0-32.0); Mean Corpuscular Volume 101.4 fL (81-99); Mean Platelet Vol. 9.8 fl (6.2-12.0); Monocyte# 0.63 X10^3/uL; Monocyte% 9.3 % (0-10); NRBC Flagged by Analyzer 0 % (0-5); Neutrophil # 3.78 X10^3/uL (2.7-7.7); Neutrophil % 55.7 % (47-70); Platelet Count 386 K/mm3 (150-450); RBC Distribution Width CV 13.4 % (11.6-14.6); RBC Distribution Width SD 50.5 fl (35.1-43.9); Red Blood Count 4.16 M/mm3 (4.2-5.4); White Blood Count 6.8 K/mm3 (4.4-11.0)
[2025-03-04 15:56] LABS: Hepatitis B Surface Antibody Nonreactive
[2025-03-04 16:22] LABS: Anion Gap 14 (5-15); BUN 19 mg/dL (4-19); BUN/Creat Ratio 29.9 RATIO (10-20); Calcium,Total 9.3 mg/dL (7.6-11.0); Carbon Dioxide 22.2 mmol/L (21.0-32.0); Chloride 101 mmol/L (98-108); Creatinine, Serum 0.62 mg/dL (0.70-1.20); EST Glomerular Filtration Rate 106 (>60); Glucose 75 mg/dL (70-99); HIV Nonreactive (Nonreactive); Hepatitis C Antibody Nonreactive (Nonreactive); Potassium 3.4 mmol/L (3.3-5.1); Sodium Level 137 mmol/L (133-145)
--- NOTE | 2025-03-04 18:52 | PAT.ANESEVAL ---
Pre-Assessment Diagnosis/Proposed Procedure Planned Operative Procedure(s): 360 LUMBAR FUSION L3-4,L4-5 REVISION OF INSTRUMENTATION L3-4,L4-5 AND L5-S1 Anesthesia History Anesthesia History - translator interpreter: Anesthesia History - translator interpreter Hx Hospitalization No 02/24/25 11:23 Any Problems With Anesthesia Yes: AWAKENED DURING 02/24/25 11:23 PREVIOUS BACK SURGERY Cholinesterase deficiency No 02/24/25 11:23 You/Your Family Experience No 02/24/25 11:23 fever (hyperthermia) with Relationship Recent Exposure to Contagious No 08/10/16 08:39 Disease Does patient have nerve No 02/24/25 11:23 stimulator Patient instructed to have device shut off --Does patient have Pacemaker or ICD? When Was Last Pacemaker Check QUESTION #4 FULL TEXT: You/Your Family Experience fever (hyperthermia) with Anesthesia Last Oral Intake Last Oral intake: Last Oral Intake NPO since Meds taken in AM with sips of water? Meds patient instructed to take am of surgery PONV PONV - translator interpreter: PONV - translator interpreter Female Yes 02/24/25 11:23 HX of Motion Sickness No 02/24/25 11:23 HX of N/V After Surgery No 02/24/25 11:23 Non-Smoker No 02/24/25 11:23 Duration of Surgery greater Yes 02/24/25 11:23 than 60 minutes Number of Risk Factors 2 02/24/25 11:23 PONV Score Moderate Risk 02/24/25 11:23 Height & Weight Height & Weight: Anesthesia: Height & Weight Height 5 ft 5 in 01/20/25 10:59 Respiratory Assessment Respiratory Assessment - translator interpreter: Respiratory Tract Infection Hx - translator interpreter Hx Respiratory Tract Infection No 02/24/25 11:23 STOP Sleep Apnea STOP Sleep Apnea - translator interpreter: STOP Sleep Apnea - translator interpreter Hx Hypertension No 02/24/25 11:23 Hx Sleep Apnea No 02/24/25 11:23 CPAP No 03/10/19 23:45 BIPAP No 03/10/19 23:45 Do you snore loudly (louder Yes 02/24/25 11:23 than talking or can be heard Do you often feel tired/ Yes 02/24/25 11:23 fatigued/ sleepy during daytime? Has anyone observed you stop No 02/24/25 11:23 breathing during sleep? STOP Results Positive 05/19/25 11:23 QUESTION #5 FULL TEXT : Do you snore loudly (louder than talking or can be heard through closed doors)? Tobacco Use History Tobacco Use History - translator interpreter: Tobacco Use History - translator interpreter Tobacco Use Smoking Status Current every day smoker 02/24/25 11:23 Hx Tobacco Use Yes 02/24/25 11:23 Years Smoking Packs Smoked per Day Smoking Cessation Date was within the last 15 years Hx Smoking Cessation Date Hx Smoking Cessation Counseling Hematologic Medial History Hematologic Hx - translator interpreter: Hematologic Medical Hx - geodesist Hx of Blood Transfusion No 02/24/25 11:23 Hx of Transfusion in last 3 No 02/24/25 11:23 Months Date of Last Transfusion (if within last 3 months) Ever experience any problems No 02/24/25 11:23 with transfusion(s)? Specify any problems Hx of Preganancy in last 3 No 02/24/25 11:23 Months Nurse Filling Out Transfusion DSCHRIBER 02/24/25 11:23 & Questions: Date: 02/24/25 02/24/25 11:23 Time: 11:24 02/24/25 11:23 Patient unable to answer at this time (ie. confused, unrespo /Reproduction History /Reproductive History - translator interpreter: /Reproductive Hx- translator interpreter Hx Now No 02/24/25 11:23 Gestational Age (in weeks): EDC: Hx Hx Para Hx Section SAB No 02/24/25 11:23 PFSH Medical History Wears glasses Depression Anxiety Thyroid disease Ambulates with cane Anemia Restless legs Back pain Injury of back Migraine headache Seizures History of hiatal hernia History of diverticulitis Gastric reflux COPD (chronic obstructive pulmonary disease) Shortness of breath on exertion Smoker Leg cramps History of pain when walking History of edema History of stress test 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 Home Medications ?Medication ?Instructions ?Recorded ?Last Taken ?Type vortioxetine 10 mg tablet 10 mg PO DAILY depression 12/14/18 12/14/18 History (Trintellix) cyclobenzaprine 10 mg tablet 10 mg PO TID PRN Muscle Spasm #20 11/29/24 Unknown Rx TABLETS lamotrigine 150 mg tablet 150 mg PO QDAY DEPRESSION 01/20/25 Unknown History levothyroxine 100 mcg tablet 100 mcg PO QDAY THYROID 01/20/25 Unknown History olanzapine 20 mg tablet 20 mg PO QHS DEPRESSION 02/24/25 Unknown History omeprazole 40 mg capsule,delayed 40 mg PO DAILY GERD 02/24/25 Unknown History release Allergy/AdvReac Type Severity Reaction Status Date / Time codeine Allergy Other Verified 02/28/25 13:53 meloxicam (From Mobic) Allergy Chest Verified 02/28/25 13:53 tightness Sulfa (Sulfonamide Allergy Itching Verified 02/28/25 13:53 Antibiotics) tramadol Allergy SEIZURES Verified 02/28/25 13:53 morphine AdvReac Other Verified 02/28/25 13:53 Surgical History History of esophagogastroduodenoscopy (EGD) Hx of colonoscopy left wrist History of hysterectomy S/P appendectomy S/P cholecystectomy s/p back Social History Smoking Status: Current every day smoker tobacco type: cigarettes Audit: Pertinent Findings Pertinent Findings EKG Perinent findings: 03/04/2025. Normal sinus rhythm. Biatrial enlargement. Compared to EKG of July 24, 2018 no significant change. Recommendation Anesthesia Recommendation Anesthesia recommendation: OPTIMIZED for anesthesia
[2025-03-06 05:08] LABS: Hepatitis A AB, Total Negative (Negative)
== END | disposition home or self-care (01) ==
LOC: SDC 08-07 08:03
PROVIDERS: Anesthesiology; PCP Student in an Organized Health Care Education/Training Program; Referring Provider Orthopaedic Surgery Orthopaedic Surgery of the Spine; Visit Provider Orthopaedic Surgery Orthopaedic Surgery of the Spine
DX: Z01.818 Encounter for other preprocedural examination (principal)
CPT/HCPCS: 36415; 80048; 83036; 83735; 84443; 85025; 86703; 86706; 86708; 86803; 86850; 86900; 86901; 87081; 93005

== ENCOUNTER 2025-03-06 10:34 | Emergency (ER) | payer MEDICAID, SELFPAY ==
[2025-03-06 10:34] VITALS: BP 134/103; PULSE 83; RESP 14; TEMP 36.2; O2SAT 98
--- NOTE | 2025-03-06 11:27 | MRI_ITS ---
PROCEDURE: SPINE LUMBAR W/WO CONTRAST 03/06/2025 REASON FOR EXAM: CONCERN FOR CAUDA EQUINA TECHNIQUE: Multiplanar and multisequence images were obtained without and with intravenous gadolinium-based contrast administration. CONTRAST: 9 cc Clariscan COMPARISON: November 29, 2024 FINDINGS: There is postsurgical change with hardware at L5-S1. There is grade 1 spondylolisthesis at L4-5, 0.8 cm. The vertebral body height is maintained. There is Modic edema type endplate change at L4-5. Intervertebral disc signal shows desiccation from L3-S1. Normal appearing facets are noted. The T12-L1 level: There is mild central disc protrusion. There is no significant lateral recess or foraminal narrowing. There is no central canal stenosis The L1-L2 level: There is minimal central disk protrusion. There is no lateral recess stenosis or foraminal stenosis. There is no critical central canal stenosis. The L2-L3 level: There is minimal central disk protrusion. There is no lateral recess stenosis or foraminal stenosis. There is no critical central canal stenosis. The L3-L4 level: There is central disc extrusion which extends beyond the L3 endplate and into the left lateral recess and left neural foramen, attached at the margin,. Measuring 0.5 x 1.0 by 2.3 cm. There is severe left lateral recess effacement. There is moderate right and severe left foraminal narrowing secondary to disc protrusion and facet hypertrophy. There is mild central canal stenosis. Trace bilateral facet effusions are present. The L4-L5 level: There is broad-based central and right and left paracentral disc protrusion. There is severe right and left lateral recess stenosis. There is severe right and moderate left foraminal narrowing secondary to disc protrusion and facet hypertrophy. There is moderate central canal stenosis. A small left facet effusion is present. The L5-S1 level: There is mild central and right and left paracentral disc protrusion with increased signal in the margin of the disc consistent with a fissure. There is no lateral recess stenosis or foraminal stenosis. There is no critical central canal stenosis. The visualized conus shows normal signal characteristics. Adjacent soft tissues are unremarkable. There is heterogeneous enhancement at the right aspect of the inferior L4 endplate and superior L5 endplate, consistent with active inflammation. MRI/Spine Lumbar W/WO Contrast IMPRESSION: There is Modic edema type endplate change at L4-5, consistent with recent injur y or active inflammation, similar to the prior. There is heterogeneous enhancement at the right aspect of the inferior L4 endpl ate and superior L5 endplate, consistent with active inflammation. There is disc extrusion at L3-4. There is mild central canal stenosis at L3-4, moderate central canal stenosis a t L4-5, with lateral recess and foraminal narrowing, similar to the prior. Reading Location: [facility]
[2025-03-06 11:43] VITALS: BMI 16.5
[2025-03-06] MEDS: Ondansetron 4 MG/2 ML Vial IV (11:44)
[2025-03-06] MEDS: 0.9% Normal Saline (1000mL) 1,000 ML 1000 ML IV (11:44)
[2025-03-06] MEDS: HYDROmorphone 1 MG/ML Syringe IV ×2 (11:45→15:01)
[2025-03-06 11:55] LABS: Absolute Lymphocyte Count 2.33 X10^3/uL (0.83-4.51); Absolute Neutrophil Count 3.4 X10^3/uL (2.0-7.7); Basophil# 0.06 X10^3/uL; Basophil% 0.9 % (0-1); Eosinophil# 0.19 X10^3/uL; Eosinophils% 2.9 % (0-5); Hematocrit 36.1 % (37-47); Hemoglobin 12.1 g/dL (12.0-15.0); Lymphocyte # 2.33 X10^3/ul (0.83-4.51); Lymphocyte % 35.1 % (19-41); Mean Corp Hgb Conc 33.5 g/dL (32-36); Mean Corpuscular Hgb 33.6 pg (27.0-32.0); Mean Corpuscular Volume 100.3 fL (81-99); Mean Platelet Vol. 9.4 fl (6.2-12.0); Monocyte# 0.65 X10^3/uL; Monocyte% 9.8 % (0-10); NRBC Flagged by Analyzer 0 % (0-5); Neutrophil % 51.1 % (47-70); Platelet Count 322 K/mm3 (150-450); RBC Distribution Width CV 13.5 % (11.6-14.6); RBC Distribution Width SD 49.9 fl (35.1-43.9); White Blood Count 6.6 K/mm3 (4.4-11.0)
--- NOTE | 2025-03-06 12:08 | ED.VIS.BACK ---
HPI History of Present Illness Chief Complaint: Back Narrative Narrative: Chief complaint and HPI: Acute on chronic lumbar back pain. History obtained by patient as well as medical record. I reviewed the orthopedic note from 02/28. 54-year-old female with past medical history of chronic back pain with previous effusion presents for evaluation of acute on chronic back pain. Patient follows with Dr. Zavaleta for orthopedic surgery. She is scheduled for surgery on 03/10/2025 due to severe canal stenosis. Patient states that for the past week she has been having worsening back pain. At baseline she has some numbness and tingling in her right lower extremity however she feels like the numbness is worsening. Originally she states she did not have numbness in her calf but now she does. She states for the past 2 days she has had bowel incontinence where she is stooling herself. Denies any urinary incontinence or retention. Endorses worsening weakness with frequent falls due to difficulty ambulating. She denies any fever, chills, shortness of breath, chest pain, nausea, vomiting. States she follows with pain management. Review of systems: See HPI Medications: As listed on the chart Allergies: As listed on the chart PFSH: Per chart Vital signs: As listed on the chart. Reviewed. Physical exam: Gen: A&O x3, uncomfortable secondary to pain Head: Normocephalic, atraumatic Eyes: No sclera icterus, conjunctiva clear ENT: Moist mucous membranes Neck: Trachea midline, No JVD, full range of motion, nontender CV: RRR, no murmurs, no peripheral edema Resp: Lungs CTA BL, no w/r/c GI: Abd soft, non-distended, non-tender, no r/r/g Rectal: Incontinence of stool in depends. No evidence of hemorrhoids or fissures. Normal tone and sensation. No masses, fluctuance, or tenderness. No pain out of proportion. Musc: Moves all extremities, strength +5/5 in all extremities except for right lower extremity is +2/5, DP/PT pulses +2 bilaterally, diminished sensation on the right lower extremity diffusely compared to the left with touch per her report, no saddle paresthesia, tender to palpation in the lower lumbar spine - no bony step-offs -no signs of cellulitis or infection Skin: Warm, dry Neuro: Alert, oriented, grossly intact Psych: Cooperative, intermittently tearful and aggressive PFSH PFSH Medical History Wears glasses Depression Anxiety Thyroid disease Ambulates with cane Anemia Restless legs Back pain Injury of back Migraine headache Seizures History of hiatal hernia History of diverticulitis Gastric reflux COPD (chronic obstructive pulmonary disease) Shortness of breath on exertion Smoker Leg cramps History of pain when walking History of edema History of stress test 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 Home Medications ?Medication ?Instructions ?Recorded ?Last Taken ?Type vortioxetine 10 mg tablet 10 mg PO DAILY depression 12/14/18 12/14/18 History (Trintellix) lamotrigine 150 mg tablet 150 mg PO QDAY DEPRESSION 01/20/25 Unknown History levothyroxine 100 mcg tablet 100 mcg PO QDAY THYROID 01/20/25 Unknown History olanzapine 20 mg tablet 20 mg PO QHS DEPRESSION 02/24/25 Unknown History omeprazole 40 mg capsule,delayed 40 mg PO DAILY GERD 02/24/25 Unknown History release gabapentin 100 mg capsule 100 mg PO TID 03/06/25 Unknown History Allergy/AdvReac Type Severity Reaction Status Date / Time codeine Allergy Other Verified 03/06/25 10:34 meloxicam (From Mobic) Allergy Chest Verified 03/06/25 10:34 tightness Sulfa (Sulfonamide Allergy Itching Verified 03/06/25 10:34 Antibiotics) tramadol Allergy SEIZURES Verified 03/06/25 10:34 morphine AdvReac Other Verified 03/06/25 10:34 Surgical History History of esophagogastroduodenoscopy (EGD) Hx of colonoscopy left wrist History of hysterectomy S/P appendectomy S/P cholecystectomy s/p back Social History Smoking Status: Current every day smoker tobacco type: cigarettes EXAM Physical Exam Const Vital Signs: 03/06/25 10:34 03/06/25 14:00 Temperature 97.1 F L Temperature Source Temporal Pulse Rate 83 97 Respiratory Rate 14 16 Blood Pressure 134/103 H 124/90 H Blood Pressure Mean 113 101 Pulse Ox 98 100 Oxygen Delivery Method Room Air MDM MDM MDM Narrative Medical decision making narrative: 54-year-old female with past medical history of chronic back pain with previous effusion presents for evaluation of acute on chronic back pain. Associated symptom is worsening numbness, worsening weakness, and stool incontinence. History obtained by patient as well as medical record. See HPI. Given patient's neurological findings, concern is for acute cauda equina syndrome versus worsening canal stenosis. Lumbar MRI ordered with basic labs. NS bolus, Dilaudid, Zofran ordered for symptoms. Will obtain postvoid residual to obtain if patient is retaining. CBC without leukocytosis or anemia. BMP unremarkable. Patient has become intermittently aggressive towards staff. She is endorsing new left hip and buttocks pain. MRI lumbar spine pending. Given patient has had frequent falls will obtain x-ray of the pelvis and hip to assess for any fracture. Morphine ordered. X-ray of the pelvis/hip was personally reviewed and interpreted by me ED physician. No obvious fracture or dislocation. Radiology in agreement. Osteopenia is noted. MRI of the lumbar spine shows Modic edema type endplate changes at L4-5 consistent with recent injury or active inflammation similar to prior. There is heterogeneous enhancement at the right aspect of the inferior L4 endplate and superior L5 endplate consistent with active inflammation. Disc extrusion at L3-4. Mild central canal stenosis at L3-4, moderate central canal stenosis at L4-5, with lateral recess and foraminal narrowing, similar to prior. Given these findings, Dr. Zavaleta will be consulted. Patient was able to urinate 350 mL. We were unable to get a complete postvoid residual as she refused to cooperate with the exam. Does not appear that patient is retaining. Patient still endorsing intractable back pain, Dilaudid ordered. I spoke with Dr. Zavaleta. He personally reviewed the MRI imaging. No acute cauda equina syndrome per him. States he canceled her surgery for next week as he feels that she would be better served by a higher level of care given her malnutrition. Okay with admission for intractable back pain here in our hospital, no need for transfer at this time. Agrees with starting steroids. Solu-Medrol given. Patient discussed with the hospitalist service who accepted admission. I did update the patient of the plan. I did inform her that Dr. Zavaleta did cancel her surgery and that she needs to discuss with him further about this. She confirmed understanding. Impression: 1. Intractable acute on chronic back pain with history of spinal stenosis 2. Worsening paresthesias and weakness in the right lower extremity 3. Stool incontinence Lab Data Labs: Laboratory Results - last 24 hr 03/06/25 11:40 WBC 6.6 RBC 3.60 L Hgb 12.1 Hct 36.1 L MCV 100.3 H MCH 33.6 H MCHC 33.5 RDW Std Deviation 49.9 H RDW Coeff of Krissy 13.5 Plt Count 322 MPV 9.4 Immature Gran % (Auto) 0.200 Neut % (Auto) 51.1 Lymph % (Auto) 35.1 [place] % (Auto) 9.8 Eos % (Auto) 2.9 Baso % (Auto) 0.9 Absolute Neuts (auto) 3.4 Absolute Lymphs (auto) 2.33 Nucleated RBC % 0 Sodium 139 Potassium 3.7 Chloride 106 Carbon Dioxide 22.2 Anion Gap 11 BUN 11 Creatinine 0.64 L Estim Creat Clear Calc 71.70 Est GFR (MDRD) Non-Af 105 BUN/Creatinine Ratio 18.0 Glucose 84 Calcium 8.8 Radiography Diagnostic Testing: Clinical Impression(s) from Imaging Studies Lumbar Spine MRI 03/06/25 11:27 IMPRESSION: There is Modic edema type endplate change at L4-5, consistent with recent injury or active inflammation, similar to the prior. There is heterogeneous enhancement at the right aspect of the inferior L4 endplate and superior L5 endplate, consistent with active inflammation. There is disc extrusion at L3-4. There is mild central canal stenosis at L3-4, moderate central canal stenosis at L4-5, with lateral recess and foraminal narrowing, similar to the prior. Reading Location: [facility] Hip/Pelvis X-Ray 03/06/25 13:45 IMPRESSION: No fracture or dislocation is identified. Reading Location: [facility] Discharge Plan Triage Chief Complaint: Back ED Provider: Isidro Flowers Dx/Rx/DC Orders Prescriptions: No Action levothyroxine 100 mcg tablet 100 mcg PO QDAY lamotrigine 150 mg tablet 150 mg PO QDAY Trintellix 10 MG tablet 10 mg PO DAILY Patient Comments: TAKE ONE TABLET BY MOUTH EVERY DAY gabapentin 100 mg capsule 100 mg PO TID olanzapine 20 mg tablet 20 mg PO QHS omeprazole 40 mg capsule,delayed release(DR/EC) 40 mg PO DAILY Primary Care Provider: Care Physician,No Primary Referrals: Care Physician,No Primary [Primary Care Provider] - Print Language: Bhutanese
[2025-03-06 12:21] LABS: Anion Gap 11 (5-15); BUN 11 mg/dL (4-19); Calcium,Total 8.8 mg/dL (7.6-11.0); Carbon Dioxide 22.2 mmol/L (21.0-32.0); Chloride 106 mmol/L (98-108); Creatinine, Serum 0.64 mg/dL (0.70-1.20); EST Glomerular Filtration Rate 105 (>60); Glucose 84 mg/dL (70-99); Potassium 3.7 mmol/L (3.3-5.1); Sodium Level 139 mmol/L (133-145)
--- NOTE | 2025-03-06 13:18 | ED.RN ---
Pt returned from MRI with new c/o hip and buttock pain, states that shes had stool incontinence and asked for a brief. This RN offered to change her, offered to get her up to bedside commode as she states its coming out continuously. Pt refusing any assistance, refusing brief change, refusing to get up to commode. Pt informed MD wants her to try to urinate and a bladder scan was ordered. Pt refusing to attempt urination. MD made aware. Pt called out again requesting meds for her hip pain. This RN offered to reposition pt. Pt refused, states she wants pain meds. notified.
--- NOTE | 2025-03-06 13:30 | ED.RN ---
Pt requesting to speak with MD. This RN informed pt that the MD was made aware of her new hip and buttock pain and that she ordered additional xrays. Pt made aware that MD was informed of pts c/o pain and request for pain meds. Pt upset that the MD has not been in to speak with her. Pt educated on MRI being the most accurate and complete way to assess what is wrong and awaiting results, MD is well aware of her new complaints but has no new updates and is planning to speak with her when the MRI results are back. Pt not acknowledging understanding. Education re-enforced.
--- NOTE | 2025-03-06 13:45 | RAD_ITS ---
PROCEDURE: HIP, UNI W/ PELVIS 2-3 VIEWS 03/06/2025 REASON FOR EXAM: PAIN TECHNIQUE: Frontal view of the pelvis with two views of the right hip COMPARISON: November 29, 2024 FINDINGS: Hardware is noted in the lumbar spine. Radiopaque clips are noted in the mid pelvis. The pelvic bones appear intact. The hip joint space appears intact. There is no fracture identified. Osteopenia is noted. RAD/HIP, UNI W/ Pelvis 2-3 Views IMPRESSION: No fracture or dislocation is identified. Reading Location: [facility]
[2025-03-06] MEDS: Morphine 4 MG/ML Syringe IV (13:47)
--- NOTE | 2025-03-06 13:49 | ED.RN ---
THIS RN IN TO MEDICATE PT. PT STATES DILAUDID DID NOT HELP FOR VERY LONG,PT ANGRY THAT PHYSICIAN HAS NOT BEEN BACK IN TO SEE HER FOLLOWING NEW ONSET OF SYMPTOMS. THIS RN ASSURED PT THAT SHE WOULD TALK WITH PHYSICIAN. PHYSICIAN MADE AWARE. PT REFUSES TO DO X-RAY, RAISING HER VOICE AT STAFF REGARDING TREATMENT FROM HER SURGEON.PT REMAINS ANGRY, PHYSICIAN TO TALK WITH PT
[2025-03-06 14:00] VITALS: BP 124/90; PULSE 97; RESP 16; O2SAT 100
--- NOTE | 2025-03-06 14:30 | ED.RN ---
Pt requesting bedside commode to urinate. Pt able to move from bed to commode without difficulty. Pt able to urinate without difficulty. 350 ml out. Pt covered with blankets and provided blankets as requested under her hip for comfort. This RN left room to get bladder scanner, upon return pt angry with RN for not covering me up, I can't do that myself. This RN stated that she was covered with several blankets prior to leaving the room a few minutes ago. Pt disagrees. Pt asked to lay on her back for bladder scan to check post void residual. Pt refused. Pt requesting more pain meds. aware.
[2025-03-06] MEDS: MethylPREDNISolone 125 MG/2 ML Vial IV (15:00)
--- NOTE | 2025-03-06 15:03 | PCM.HP.STD ---
HPI - General General Date of Admission: 03/07/25 Date of Service: 03/06/25 Chief Complaint: Severe back pain HPI Narrative TO GREEN, with past medical history acute on chronic lumbar back pain, prior lumbar fusion, depression, anxiety GERD, of is a 54 F who presents to the ED with concerns regarding worsening back pain for the last few days. She has been closely following with Dr Zavaleta in orthopedics for her back pain and was previously tentatively planned for surgery on 03/11 however the surgery has been now cancelled due to her overall malnutrition and poor functional status. Patient decided to leave against medical advice. 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 Home Medications ?Medication ?Instructions ?Recorded ?Last Taken ?Type vortioxetine 10 mg tablet 10 mg PO DAILY depression 12/14/18 12/14/18 History (Trintellix) lamotrigine 150 mg tablet 150 mg PO QDAY DEPRESSION 01/20/25 Unknown History levothyroxine 100 mcg tablet 100 mcg PO QDAY THYROID 01/20/25 Unknown History olanzapine 20 mg tablet 20 mg PO QHS DEPRESSION 02/24/25 Unknown History omeprazole 40 mg capsule,delayed 40 mg PO DAILY GERD 02/24/25 Unknown History release gabapentin 100 mg capsule 100 mg PO TID 03/06/25 Unknown History Allergy/AdvReac Type Severity Reaction Status Date / Time codeine Allergy Other Verified 03/06/25 10:34 meloxicam (From Mobic) Allergy Chest Verified 03/06/25 10:34 tightness Sulfa (Sulfonamide Allergy Itching Verified 03/06/25 10:34 Antibiotics) tramadol Allergy SEIZURES Verified 03/06/25 10:34 morphine AdvReac Other Verified 03/06/25 10:34 Surgical History History of esophagogastroduodenoscopy (EGD) Hx of colonoscopy left wrist History of hysterectomy S/P appendectomy S/P cholecystectomy s/p back Social History Smoking Status: Current every day smoker tobacco type: cigarettes Vital Signs Vital Signs Vital Signs: 03/06/25 10:34 03/06/25 14:00 Temperature 97.1 F L Temperature Source Temporal Pulse Rate 83 97 Respiratory Rate 14 16 Blood Pressure 134/103 H 124/90 H Blood Pressure Mean 113 101 Pulse Ox 98 100 Oxygen Delivery Method Room Air Weight Weight: 99 lb 10.383 oz Body Mass Index (BMI) 16.5 Results Lab / Micro Data 03/06/25 11:40 03/06/25 11:40 Labs: Laboratory Results - last 24 hr 03/06/25 11:40: WBC 6.6, RBC 3.60 L, Hgb 12.1, Hct 36.1 L, MCV 100.3 H, MCH 33.6 H, MCHC 33.5, RDW Std Deviation 49.9 H, RDW Coeff of Krissy 13.5, Plt Count 322, MPV 9.4, Immature Gran % (Auto) 0.200, Neut % (Auto) 51.1, Lymph % (Auto) 35.1, [place] % (Auto) 9.8, Eos % (Auto) 2.9, Baso % (Auto) 0.9, Absolute Neuts (auto) 3.4, Absolute Lymphs (auto) 2.33, Nucleated RBC % 0, Sodium 139, Potassium 3.7, Chloride 106, Carbon Dioxide 22.2, Anion Gap 11, BUN 11, Creatinine 0.64 L, Estim Creat Clear Calc 71.70, Est GFR (MDRD) Non-Af 105, BUN/Creatinine Ratio 18.0, Glucose 84, Calcium 8.8 Imaging Radiology Impression Lumbar Spine MRI 03/06/25 11:27 IMPRESSION: There is Modic edema type endplate change at L4-5, consistent with recent injury or active inflammation, similar to the prior. There is heterogeneous enhancement at the right aspect of the inferior L4 endplate and superior L5 endplate, consistent with active inflammation. There is disc extrusion at L3-4. There is mild central canal stenosis at L3-4, moderate central canal stenosis at L4-5, with lateral recess and foraminal narrowing, similar to the prior. Reading Location[facility] Hip/Pelvis X-Ray 03/06/25 13:45 IMPRESSION: No fracture or dislocation is identified. Reading [facility]
--- NOTE | 2025-03-06 15:34 | CASEMGMT ---
Care Management Face to Face with patient for initial transition planning/care coordination assessment in the ED. 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 Patient alert and oriented. Patient willing to participate in assessment and is able to answer all questions appropriately. Care providers, pharmacy, and demographics verified. Admitting Diagnosis: acute on chronic lumbar back pain Other diagnosis history: prior lumbar fusion, depression, anxiety, GERD PCP: none, but said a friend set patient up with a new PCP and patient reportedly has an appointment on May 27 (unknown who this is with) Specialists: none Preferred Pharmacy: [facility] Insurance: [facility] Medicaid Prescription Benefit: yes Living Will/HPOA: denied, but wants information; possibly wants to complete during admission. LNOK: 2 sons and patient's mother Living Arrangements: patient lives with patient's grandfather and grandfather's friend. Second story apartment with 8 or 9 steps to get in, independent at baseline (though states this was 3 months ago) Transportation: patient relies on public transportation through Medicaid DME: walker, cane, shower chair (patient reports borrowing the cane from patient's 91 year old grandfather; and he wasn't very happy about it either). States needing a raised toilet seat. HHC: none SNF/Rehab: none Community Resources: none Behavioral Health History: anxiety, depression, PTSD, and reports taking medication for bipolar. Reports seeing Erica Mendoza at [facility] for psychiatry. Patient goals: Patient wishes to discharge home, denies need for home health care at this time. Patient denies any further needs or concerns at this time. Disposition Plan: admission to acute; RN CM/SW to follow for discharge planning needs that may arise. Jen Aguiar, [employer]GIS[employer]ORS, CLUB MANAGER
--- NOTE | 2025-03-06 15:47 | CM.ED ---
Social work This SW recognized patient would be admitted and entered patient's room, introducing self and role at [facility], in order to complete RNCM initial discharge planning assessment. Patient accepted SW visit and patient was observed laying on patient's side, covered up with a blanket. Patient confirmed being admitted and agreed to completing the initial assessment. During this time, patient was tearful, stating patient lost patient's 3 years ago and now has nobody that can be trusted. Patient stated having a friend that made patient doctor's appointments, but now the patient does not want this friend doing anything for patient. Patient demanded this SW remove patient's mother, Osvaldo Bolanos, from patient's emergency contacts and patient requested time to decide who patient wanted back on the list. Patient stated living with patient's grandfather and friend; patient stated having a cane that patient borrowed from patient's 91 year old grandfather. Prior to SW leaving patient's room, patient stated feeling very frustrated with Dr. Zavaleta for canceling patient's surgery that was scheduled for 03/11/25 and not even being able to walk here himself to tell me. Patient expressed being hungry and thirsty and feeling as if [facility] staff were starving patient. SW assured patient that this SW would ask patient's nurse if patient could have food and/or water, but this SW could not make decisions like that; patient expressed understanding. SW asked patient's nurse, Jessika GAVIN, who stated food and water could not be allowed yet. [facility] ED Director, Che, knows of ongoing patient concerns that Jessika GAVIN has written about. Jen Aguiar, ADMINISTRATIVE OFFICE SPECIALIST, [employer] MAN
--- NOTE | 2025-03-06 16:04 | ED.RN ---
Pt requesting food and drink. This RN explained to pt that she would be going upstairs to an inpatient room shortly and they would be able to provide her a meal. Pt states shes starving and that she is leaving. Pt states she has made multiple requests for food and nobody has helped her. Pt reminded that when this RN was last here helping her reposition in bed and provided with pain medication that this RN would see if it was ok to eat and if so bring something in. At that time pt was informed that this RN had other patients that she has been unable to see d/t ongoing needs from this pt and would need to assess and treat them per the MD orders and that her eating and drinking was not a priority at this time, as again she will be going upstairs to an inpatient room shortly. Pt denies any of this information was told to her, pt refuses to listen to this RN or acknowledge understanding, states shes walking to the cafeteria and has the right to leave because she has not been taken care of and she claims has not eaten in 3 days. This RN reminded pt of the multiple requests and complaints that she has had thus far and that her every request has been accommodated until this request for food and drink. Pt was reminded that she received iv fluids for hydration as well. This RN attempted to educate pt on prioritizing her back complaint and the reason she is here over a desire to eat. Pt refuses education. This RN removed pt iv and provided pt with her clothes to dress. Pt able to move about room independently and dress herself without c/o pain or obvious debility.
== END 2025-03-06 16:08 | disposition left against medical advice (07) ==
PROVIDERS: Emergency Provider Surgery; Visit Provider Surgery
DX: M48.061 Spinal stenosis, lumbar region without neurogenic claudication (principal); J44.9 Chronic obstructive pulmonary disease, unspecified; M51.26 Other intervertebral disc displacement, lumbar region; R29.898 Other symptoms and signs involving the musculoskeletal system; E46 Unspecified protein-calorie malnutrition; Z68.1 Body mass index [BMI] 19.9 or less, adult; G89.29 Other chronic pain; R15.9 Full incontinence of feces; R29.6 Repeated falls; M85.80 Other specified disorders of bone density and structure, unspecified site; K21.9 Gastro-esophageal reflux disease without esophagitis; Z53.29 Procedure and treatment not carried out because of patient's decision for other reasons; F32.A Depression, unspecified; F41.9 Anxiety disorder, unspecified; F17.210 Nicotine dependence, cigarettes, uncomplicated; Z79.890 Hormone replacement therapy; Z79.899 Other long term (current) drug therapy; Z90.49 Acquired absence of other specified parts of digestive tract; Z98.1 Arthrodesis status
CPT/HCPCS: 72158; 73502; 80048; 85025; 96361; 96374; 96375; 96376; 99285; A9575; A4216; J2405